=== PATIENT | female | born 1980 | race Caucasian/White ===

== ENCOUNTER 2020-07-15 11:25 | Outpatient (REF) | payer OTHER, SELFPAY ==
[2020-07-15 11:52] LABS: COVID-19 Test Negative (Negative); IDNOW Serial# 55D5AD1C
== END 2020-07-15 11:26 | disposition home or self-care (01) ==
LOC: HO.EMPCOV 11:25
PROVIDERS: Visit Provider Internal Medicine
DX: Z20.828 Contact with and (suspected) exposure to other viral communicable diseases (principal)
CPT/HCPCS: 87635; C9803

== ENCOUNTER 2020-08-17 15:33 | Outpatient (REF) | payer OTHER, SELFPAY ==
--- NOTE | 2020-08-17 | MM_ITS ---
EXAMINATION: MM SCREENING DIGITAL BREAST TOMOSYNTHESIS, BILATERAL CLINICAL INFORMATION: Screening. Asymptomatic. The lifetime risk of breast cancer based on the Tyrer-Cuzick Model is 49.5%. annual screening with breast MRI may be of benefit in women with a score of 20% or greater. COMPARISON: Mammography: MRI of March 10, 2020 and mammography of August 12, 2019 and dating back to June 26, 2014 TECHNIQUE: Digital breast tomosynthesis is performed in both the craniocaudal and mediolateral oblique views along with computer-aided detection (CAD). Synthesized 2D images are generated from the tomosynthesis. Additional right breast craniocaudal spot compression view was performed. FINDINGS: The breasts are heterogeneously dense, which may obscure small masses (ACR BI-RADS breast composition Category c). There is question of ill-defined density central aspect of the right breast on craniocaudal view for which spot compression view was performed which demonstrated this to represent superimposition of fibroglandular tissue. No new abnormal dominant mass or suspicious grouping of microcalcifications is seen within either breast. MM/MM tomosynthesis screening BI IMPRESSION: There are no significant changes from prior study. ASSESSMENT: BI-RADS 1: Negative RECOMMENDATION: Routine annual mammography screening. This patient's information was entered into a reminder system with a target due date for their next mammogram.
== END 2020-08-17 15:34 | disposition home or self-care (01) ==
LOC: HO.MAMMO 15:33
PROVIDERS: PCP Nurse Practitioner Family; Visit Provider Nurse Practitioner
DX: Z12.31 Encounter for screening mammogram for malignant neoplasm of breast (principal)
CPT/HCPCS: 77063; 77067

== ENCOUNTER → 2020-09-24 15:33 | Outpatient (BNV) | payer OTHER, SELFPAY | PROVIDERS: PCP Nurse Practitioner Family; Visit Provider Internal Medicine Medical Oncology | DX: D47.2 Monoclonal gammopathy (principal) | CPT/HCPCS: 99213 ==

== ENCOUNTER 2021-02-18 15:48 | Outpatient (REF) | payer OTHER, SELFPAY ==
--- NOTE | ~2021-02-18 | MR_ITS ---
EXAMINATION: MR BREAST WITHOUT AND WITH CONTRAST, BILATERAL CLINICAL INFORMATION: Bilateral mastodynia, left more than right, for 3 months. High-risk patient, genetic predisposition. COMPARISON: 03/10/2020. 05/29/2018 Mammography from 08/17/2020. TECHNIQUE: Imaging was performed with a dedicated breast coil. Prior to the administration of contrast, bilateral axial T1 and bilateral axial T2 weighted sequences were obtained. After the uneventful administration of?7.5 mL of Gadavist, dynamic contrast-enhanced VIBRANT series through the breasts in the axial plane were performed. Subtracted images were performed and reviewed. A delayed sagittal sequence through both breasts was acquired. Additionally, CAD post-processing, including maximum intensity projections, 3-D reconstructions and kinetic analysis, were performed an independent workstation and reviewed by the interpreting radiologist is a portion of this exam. FINDINGS: The breasts are comprised of scattered fibroglandular elements. The tissue undergoes moderate background enhancement. LEFT BREAST: There is a focal nonmass enhancement at 9:00 (image 84/128) 6.5 cm from the nipple. Nonmass enhancement is T2 isointense with type II plateau enhancement kinetics. Increasing conspicuity compared with prior. No mammographic correlate. MR biopsy advised. Clip susceptibility artifact at 4:00 without associated enhancement. No etiology for Sharp left breast pain identified. Stable lateral angulation of the left nipple without underlying lesion. RIGHT BREAST: An oval 6 mm T2 bright enhancing mass at 3:00 (image 83/128) 4.5 cm from the nipple. Linear nonenhancing septation, possibly a fibroadenoma. Type II plateau enhancement kinetics. Mass is slightly larger than on 2020 exam, but smaller than 2018, suggesting technical variations. Overall stable benign appearance. Clip susceptibility artifact at 10:00 without associated enhancement. No etiology for right breast pain. There is no suspicious internal mammary chain or axillary adenopathy. Limited views of the chest and abdomen are unremarkable. MR/MR breast BI wo/w con IMPRESSION: 1. Suspicious nonmass enhancement left breast 9:00 position with type II plateau enhancement kinetics. 2. Stable right breast mass 3:00. 3. No etiology for bilateral mastodynia. ASSESSMENT: LEFT BREAST: BI-RADS Category 4, suspicious finding RIGHT BREAST: BI-RADS Category 2, benign finding. RECOMMENDATIONS: 1. MR guided core biopsy nonmass enhancement left breast 9:00 position. 2. Continued yearly bilateral breast MRI. 3. Clinical follow-up of mastodynia.
== END 2021-02-18 15:49 | disposition home or self-care (01) ==
LOC: HO.MRI 15:48
PROVIDERS: PCP Nurse Practitioner Family; Visit Provider Nurse Practitioner
DX: Z15.89 Genetic susceptibility to other disease (principal); Z80.3 Family history of malignant neoplasm of breast
CPT/HCPCS: 77049; A9585

== ENCOUNTER 2021-03-03 07:39 | Outpatient (REF) | payer OTHER, SELFPAY ==
--- NOTE | ~2021-03-03 | MR_ITS ---
EXAMINATION: MR GUIDED VACUUM-ASSISTED CORE BIOPSY BREAST, LEFT MM DIGITAL MAMMOGRAPHY POST BIOPSY, LEFT CLINICAL INFORMATION: Small focal non mass enhancement 9:00 left breast mid depth on high risk screening MRI. History ELAINA genetic mutation. No mammographic correlate. MR tissue sampling recommended. Prior history benign left breast MR biopsy outer quadrant 06/13/2018 (benign breast tissue with focal like hyperplasia, stromal fibrosis, and columnar cell change. Mature adipose tissue and blood clot). Prior history benign contralateral right breast stereotactic biopsy 09/06/2013 (fibrocystic changes including apocrine metaplasia, fibrosis, microcysts, with moderate ductal hyperplasia, columnar cell hyperplasia, and focal collagenous spherulosis. No atypia or malignancy). COMPARISON: MRI breasts 02/18/2021, 3-D digital breast tomosynthesis 08/17/2020. TECHNIQUE/PROCEDURE: Informed consent was obtained from the patient after discussion of the benefits, risks, and alternatives to biopsy today. Patient appeared to understand. Gave opportunity for questions. Patient signed consent form. Biopsy is performed under MRI guidance using breast surface coil. Imaging is performed without and with use of 8 mL Gadavist gadolinium contrast. [employer] introducer localization system is used with grid. LESION: Focal small non mass enhancement mid medial left breast. Enhancement is less prominent and subtle with breast in compression when compared to the recent MR high risk screening exam. LOCAL ANESTHESIA: 8 mL 1% lidocaine; 10 mL 2% lidocaine with epinephrine. NEEDLE: [employer] 9-gauge vacuum assisted core biopsy device. APPROACH: Mediolateral. CORES: 12. CLIP: [employer] barbell/spool shape marker. POSTPROCEDURE UNILATERAL DIGITAL MAMMOGRAM: Mammography is performed using digital mammography in CC and LM views. There are scattered areas of fibroglandular density (ACR BI-RADS breast composition Category b). The barbell/spool shaped clip marker is in expected position, mid medial breast. No gross hematoma. There is an old cylinder shaped biopsy clip marker posterior 4:00 left breast from MR biopsy 2018. The patient tolerated the procedure well. No immediate complications. Home instructions reviewed with the patient. Final pathology results are pending. MR/MR guided breast biopsy LT IMPRESSION: 1. Status post MRI guided vacuum-assisted core biopsy left breast with clip placement. 2. Final pathology results pending. An addendum report will be issued.
[2021-03-03] MEDS: Lidocaine HCl 1 % MPF 5 ML VIAL SUBCUT ×2 (10:36→10:38)
== END 2021-03-03 07:40 | disposition home or self-care (01) ==
LOC: HO.MRI 07:39
PROVIDERS: PCP Nurse Practitioner Family; Visit Provider Nurse Practitioner
DX: N63.25 Unspecified lump in the left breast, overlapping quadrants (principal)
CPT/HCPCS: 19085; 77065; 88305; A4648; A9585

== ENCOUNTER 2021-08-18 15:29 | Outpatient (REF) | payer OTHER, SELFPAY ==
--- NOTE | ~2021-08-18 | MM_ITS ---
EXAMINATION: MM SCREENING DIGITAL BREAST TOMOSYNTHESIS, BILATERAL CLINICAL INFORMATION: Screening. Asymptomatic. The lifetime risk of breast cancer based on the Tyrer-Cuzick Model is 23.8%. Additional annual screening with breast MRI may be of benefit in women with a score of 20% or greater. COMPARISON: Mammography: 03/03/2021 and studies dating back to 06/15/2014 TECHNIQUE: Digital breast tomosynthesis is performed in both the craniocaudal and mediolateral oblique views along with computer-aided detection (CAD). Synthesized 2-D images are generated from the tomosynthesis. FINDINGS: There are scattered areas of fibroglandular density (ACR BI-RADS breast composition Category b). There is a stable parenchymal pattern of the right breast. There is question of irregular marginated density about the lateral aspect of the left breast measuring approximately 1.6 x 0.7 cm in size and lying approximately 6.5 cm from the nipple. On mediolateral oblique study, there is question of a similar density inferiorly, however, this lies only 5 cm from the nipple and may not correspond to the same lesion. Spot compression views and craniocaudal and mediolateral oblique projection recommended as well as rolled craniocaudal views of the left breast. MM/MM tomosynthesis screening BI IMPRESSION: Left breast density for further evaluation, as described. ASSESSMENT: BI-RADS 0: Incomplete - Need Additional Imaging Evaluation. RECOMMENDATION: 1. Additional views of the left breast. 2. Targeted ultrasound if warranted after review of the additional views. 3. Radiology department staff will contact the patient for additional imaging.
== END 2021-08-18 15:30 | disposition home or self-care (01) ==
LOC: HO.MAMMO 15:29
PROVIDERS: PCP Nurse Practitioner Family; Visit Provider Nurse Practitioner
DX: Z12.31 Encounter for screening mammogram for malignant neoplasm of breast (principal)
CPT/HCPCS: 77063; 77067

== ENCOUNTER 2021-08-26 08:25 | Outpatient (REF) | payer OTHER, SELFPAY ==
--- NOTE | ~2021-08-26 | MM_ITS ---
EXAMINATION: MM DIAGNOSTIC DIGITAL BREAST TOMOSYNTHESIS, LEFT LEFT BREAST ULTRASOUND CLINICAL INFORMATION: Callback for left breast density. COMPARISON: Mammography: 08/18/2021 and studies dating back to 06/26/2014 including MRI. TECHNIQUE: Digital breast tomosynthesis is performed. 2D images are generated from the tomosynthesis. The following views are obtained: Spot compression mediolateral oblique and craniocaudal views as well as full-field rolled craniocaudal views of the left breast. Targeted left breast ultrasound. FINDINGS: There are scattered areas of fibroglandular density (ACR BI-RADS breast composition Category b). The questioned densities within the left breast were compressed and are seen to demonstrate superimposition of fibroglandular tissue without residual abnormality. On the spot compression view there is a region of architectural distortion which was adjacent to biopsy clip however on craniocaudal views it is seen to lie approximately 2 cm from the clip. This likely represents a biopsy site with scarring as there are some interspersed regions of fat density within it. This is the first postbiopsy study from biopsies performed in February 2021. Ultrasound evaluation of the left breast did not demonstrate any abnormal cystic or solid mass. No region of abnormal distal sound shadowing was appreciated in the region of density. Results are discussed with the patient at time of visit. MM/MM tomosynthesis added views L IMPRESSION: Region of architectural distortion about the medial aspect of the left breast which appears to be related to previous biopsy. Patient is scheduled for six-month follow-up MRI study. ASSESSMENT: BI-RADS 3: Probably Benign. RECOMMENDATION: Six-month follow-up breast MRI. Mammography in 12 months. This patient's information was entered into a reminder system with a target due date for their next mammogram.
--- NOTE | ~2021-08-26 | US_ITS ---
EXAMINATION: US DIAGNOSTIC ULTRASOUND BREAST, LEFT CLINICAL INFORMATION: Question region of architectural distortion medial central left breast. COMPARISON: Mammography of same day as well as studies dating back to 06/15/2014. TECHNIQUE: Ultrasound of the breast is performed with real-time english scale imaging and color Doppler. The study was performed by technologist as well as myself for evaluation of upper outer aspect of the left breast as well as central medial aspect. FINDINGS: There is no focal suspicious finding. There is no solid mass, architectural abnormality, duct ectasia, or edema in the soft tissue planes. Results are discussed with the patient at time of visit. US/US breast LT limited IMPRESSION: No suspicious ultrasound findings identified of the left breast. Probable postoperative findings on mammography. ASSESSMENT: BI-RADS 3: Probably Benign. RECOMMENDATION: Patient is scheduled for six-month MRI. Mammography in 12 months. This patient's information was entered into a reminder system with a target due date for their next mammogram.
== END 2021-08-26 08:26 | disposition home or self-care (01) ==
LOC: HO.MAMMO 08:25
PROVIDERS: PCP Nurse Practitioner Family; Visit Provider Nurse Practitioner
DX: R92.8 Other abnormal and inconclusive findings on diagnostic imaging of breast (principal)
CPT/HCPCS: 76642; 77061; 77065

== ENCOUNTER 2021-09-28 07:17 | Outpatient (REF) | payer OTHER, SELFPAY ==
[2021-09-28 07:36] LABS: MANUAL DIFF FLAG NO
[2021-09-28 08:03] LABS: Basophils Percent Auto 0.4 % (0-2); Eosinophils Absolute Auto 0.2 X10*3/uL (0.0-0.4); Eosinophils Percent Auto 2.4 % (0-4); Hematocrit 40.7 % (37.0-47.0); Hemoglobin 13.2 g/dl (12.0-16.0); Imm Gran Abs Auto 0.02 X10*3/uL (0.00-0.03); Imm Gran Pct Auto 0.3 % (0.0-0.4); Lymphocytes Absolute Auto 2.4 X10*3/uL (1.2-4.9); Lymphocytes Percent Auto 32.6 % (20-40); Mean Corpuscular HGB Conc 32.4 g/dl (31.0-35.0); Mean Corpuscular Hemoglobin 27.9 pg (27.0-33.0); Mean Platelet Volume 9.1 fL (9.4-12.3); Monocytes Absolute Auto 0.8 X10*3/uL (0.1-1.2); Monocytes Percent Auto 10.3 % (2-11); Platelet Count 328 X10*3/uL (160-400); Red Blood Count 4.73 X10*6/uL (4.20-5.50); Red Cell Distribution Width 12.6 % (11.0-16.0); White Blood Count 7.4 X10*3/uL (4.8-10.8)
[2021-09-28 08:21] LABS: Alanine Aminotransferase 16 U/L (0-31); Albumin Level 4.5 g/dL (3.5-5.0); Alkaline Phosphatase 82 U/L (39-117); Anion Gap 14 (12-20); Aspartate Amino Transferase 17 U/L (5-31); Bilirubin Total 0.5 mg/dL (0.0-1.0); Blood Urea Nitrogen 12 mg/dL (9-16); Calcium 9.9 mg/dL (8.4-10.2); Carbon Dioxide 25 mmol/L (22-29); Chloride 103 mmol/L (96-108); Cholesterol 215 mg/dL; Estimated Glomerular Filt Rate > 60; Glucose Fasting 93 mg/dL (60-99); HDL Cholesterol 58 mg/dL; LDL Cholesterol Calculated 139 mg/dl; Lipase 25 U/L (8-78); Potassium 4.5 mmol/L (3.3-5.1); Sodium 137 mmol/L (135-145); Total Protein 8.1 g/dL (6.5-8.0); Triglycerides 90 mg/dL
[2021-09-28 08:45] LABS: TSH reflex Free T4 1.77 uIU/mL (0.32-4.0)
[2021-09-28 10:49] LABS: Appearance Urine CLEAR; Color Urine YELLOW; Glucose Urine UA NEG (NEG); Leukocyte Esterase Urine NEG (NEG); Nitrite Urine NEG (NEG); Urine Blood NEG (NEG); Urine Ketones NEG (NEG); Urine Protein NEG (NEG-TRACE)
== END 2021-09-28 07:18 | disposition home or self-care (01) ==
LOC: HO.LAB 07:17
PROVIDERS: PCP Nurse Practitioner Family; Visit Provider Nurse Practitioner Family
DX: K21.9 Gastro-esophageal reflux disease without esophagitis (principal)
CPT/HCPCS: 36415; 80053; 80061; 81003; 83690; 84443; 85025

== ENCOUNTER 2021-11-24 | Outpatient (REF) | payer OTHER, SELFPAY | END 2021-11-24 00:01 | disposition home or self-care (01) | LOC: HO.LNP | PROVIDERS: Visit Provider Nurse Practitioner | DX: K21.9 Gastro-esophageal reflux disease without esophagitis (principal); K59.04 Chronic idiopathic constipation | CPT/HCPCS: 87338 ==

== ENCOUNTER → 2021-11-24 07:11 | Outpatient (BNVA) | payer OTHER, SELFPAY | PROVIDERS: PCP Nurse Practitioner Family; Referring Provider Nurse Practitioner Family; Visit Provider Nurse Practitioner | DX: K21.9 Gastro-esophageal reflux disease without esophagitis (principal) ==

== ENCOUNTER 2021-12-06 08:10 | Outpatient (REF) | payer OTHER, SELFPAY ==
--- NOTE | ~2021-12-06 | FL_ITS ---
EXAMINATION: FL BARIUM SWALLOW CLINICAL INFORMATION: Gastroesophageal reflux COMPARISON: None TECHNIQUE: Barium swallow examination is performed using fluoroscopic evaluation in addition to multiple fluoroscopic spot views. The patient is imaged both upright and prone and using both thick and thin sulfate along with effervescent granules. Barium tablet was also administered. Fluoroscopy time: 0.8 minutes DAP: 2.4 Gycm2 Images: 40 FINDINGS: The swallowing mechanism is normal. No aspiration or penetration is seen. There is mucosal irregularity of the mid and distal thoracic esophagus suggestive of mild esophagitis. There was temporary stasis of the barium tablet at the GE junction. There is significant gastroesophageal reflux. No mass or stricture is seen. There is a very small sliding-type hiatal hernia. Stomach and duodenum are unremarkable. FL/FL barium swallow IMPRESSION: Gastroesophageal reflux and esophagitis of the mid and distal thoracic esophagus. Very small sliding-type hiatal hernia.
== END 2021-12-06 08:11 | disposition home or self-care (01) ==
LOC: HO.XRAY 08:10
PROVIDERS: Visit Provider Nurse Practitioner
DX: K59.04 Chronic idiopathic constipation (principal); K21.9 Gastro-esophageal reflux disease without esophagitis
CPT/HCPCS: 74220

== ENCOUNTER 2021-12-13 09:47 | Outpatient (REF) | payer OTHER, SELFPAY ==
--- NOTE | ~2021-12-13 | US_ITS ---
EXAMINATION: US ABDOMEN COMPLETE CLINICAL INFORMATION: Gastroesophageal reflux disease without esophagitis. Abdominal pain. COMPARISON: CT abdomen and pelvis 12/06/2017. Ultrasound abdomen 08/25/2010 and 05/15/2006. TECHNIQUE: Real-time imaging of the abdominal viscera. FINDINGS: PANCREAS: Normal. ABDOMINAL AORTA: The proximal, mid, and distal segments are normal in caliber. INFERIOR VENA CAVA: Visualized portions are normal. LIVER: Very mild increased echogenicity. No discrete focal abnormalities. No intrahepatic biliary ductal dilatation. GALLBLADDER: Normal. The gallbladder is physiologically distended without evidence of stones, sludge, polyps, wall thickening or pericholecystic fluid. COMMON BILE DUCT: Normal in caliber measuring 0.2 cm in diameter. RIGHT KIDNEY: Normal. No hydronephrosis. No renal calculi or focal parenchymal lesions. The kidney measures 11.7 cm in maximum dimension. LEFT KIDNEY: Normal. No hydronephrosis. No renal calculi or focal parenchymal lesions. The kidney measures 12.2 cm in maximum dimension. SPLEEN: Normal. The spleen measures 8.1 cm in maximum dimension. FREE FLUID: None. US/US abdomen complete IMPRESSION: Questionable increased echogenicity of the liver suggesting mild hepatic steatosis. Otherwise, normal examination.
== END 2021-12-13 09:48 | disposition home or self-care (01) ==
LOC: HO.HMGCX 09:47
PROVIDERS: Visit Provider Nurse Practitioner
DX: K21.9 Gastro-esophageal reflux disease without esophagitis (principal); K59.04 Chronic idiopathic constipation
CPT/HCPCS: 76700

== ENCOUNTER → 2021-12-15 07:10 | Outpatient (BNVA) | payer OTHER, SELFPAY | PROVIDERS: PCP Nurse Practitioner Family; Referring Provider Nurse Practitioner Family; Visit Provider Nurse Practitioner | DX: Z13.89 Encounter for screening for other disorder (principal) ==

== ENCOUNTER 2022-02-28 14:59 | Outpatient (REF) | payer OTHER, SELFPAY ==
--- NOTE | ~2022-02-28 | MR_ITS ---
EXAMINATION: MR BREAST WITHOUT AND WITH CONTRAST, BILATERAL CLINICAL INFORMATION: High-risk screening. COMPARISON: 02/18/2021. 03/10/2020. Mammography from 08/18/2021, and subsequent diagnostic imaging. TECHNIQUE: Imaging was performed with a dedicated breast coil. Prior to the administration of contrast, bilateral axial T1 and bilateral axial T2 weighted sequences were obtained. After the uneventful administration of?7 mL of Gadavist, dynamic contrast-enhanced VIBRANT series through the breasts in the axial plane were performed. Subtracted images were performed and reviewed. A delayed sagittal sequence through both breasts was acquired. Additionally, CAD post-processing, including maximum intensity projections, 3-D reconstructions and kinetic analysis, were performed an independent workstation and reviewed by the interpreting radiologist is a portion of this exam. FINDINGS: The breasts are comprised of scattered fibroglandular elements. The tissue undergoes moderate background enhancement. LEFT BREAST: Focal nonmass enhancement at 9:00 (series 100 image 74/114) has decreased in size and conspicuity following benign biopsy. Stable shaped biopsy clip shows 2 cm medial migration. Recommend continued yearly MR follow-up. No new suspicious left breast mass or dominant nonmass enhancement. RIGHT BREAST: An oval, 6 mm, T2 bright enhancing mass at 3:00 (image 75/114) remains stable. Recommend continued yearly MR follow-up. No new right breast mass or dominant nonmass enhancement. There is no suspicious internal mammary chain or axillary adenopathy. Limited views of the chest and abdomen are unremarkable. MR/MR breast BI wo/w con IMPRESSION: 1. Status post benign left breast biopsy at 9:00. 2. Stable right breast mass 3:00. 3. No screening MR evidence of breast malignancy. ASSESSMENT: LEFT BREAST: BI-RADS 2, benign findings. RIGHT BREAST: BI-RADS 2, benign findings. RECOMMENDATIONS: Repeat bilateral breast MRI in 12 months time.
== END 2022-02-28 15:00 | disposition home or self-care (01) ==
LOC: HO.MRI 14:59
PROVIDERS: Visit Provider Nurse Practitioner
DX: Z12.39 Encounter for other screening for malignant neoplasm of breast (principal); Z91.89 Other specified personal risk factors, not elsewhere classified
CPT/HCPCS: 77049; A9585

== ENCOUNTER 2022-06-21 08:59 | Outpatient (REF) | payer OTHER, SELFPAY ==
--- NOTE | ~2022-06-21 | CT_ITS ---
EXAMINATION: CT ABDOMEN AND PELVIS WITH CONTRAST CLINICAL INFORMATION: Abdominal distention/gaseous. COMPARISON: CT abdomen/pelvis 12/09/2017. TECHNIQUE: Multidetector volumetric images were obtained from the superior aspect of the liver through the pubic symphysis following administration 85 mL of Omnipaque 350 intravenous contrast. Sagittal and coronal reformatted images were obtained on the technologist's workstation. Oral contrast: No. This CT examination was performed using dose optimization techniques as appropriate, variously including the following: *Automated exposure control *Adjustment of mA and/or kV according to patient size (this includes techniques or standardized protocols for targeted exams where dose is matched to indication/reason for exam; i.e. extremities or head) *Use of iterative reconstruction technique DLP: 386 mGy-cm FINDINGS: LUNG BASES: The visualized lung bases are unremarkable. LIVER, GALLBLADDER, AND BILIARY TREE: The liver is normal in size, shape, and attenuation. No focal hepatic lesion or biliary ductal dilatation is present. The gallbladder is unremarkable with no evidence of radiopaque gallstones, gallbladder wall thickening, or obvious pericholecystic inflammatory changes. PANCREAS: The pancreatic tail is prominent but similar to previous study 12/06/2017. The rest of the pancreas is homogeneous in density. There is no peripancreatic fat stranding. No focal lesion. SPLEEN: Unremarkable. ADRENAL GLANDS: Unremarkable. KIDNEYS AND URETERS: The kidneys are normal in size, shape, and attenuation. No hydronephrosis, hydroureter, or calculi seen. No perinephric stranding. BLADDER: The bladder is mildly distended but unremarkable. GASTROINTESTINAL TRACT: There is [id number] stool and oral contrast seen in the colon without significant distention. Oral contrast opacified small bowel loops are normal caliber. There is mild mural thickening of the stomach, unchanged to previous study. 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 The appendix is not visualized. No free air or inflammatory process seen in the abdomen. ABDOMINAL WALL: A small umbilical hernia containing fat is noted. LYMPH NODES: No abnormal size retroperitoneal or pelvic lymph nodes seen. VASCULAR: Unremarkable. PELVIC VISCERA: The uterus is midline with an IUD in correct position. No adnexal mass or free fluid seen. Previously seen right adnexal cyst has resolved. There is no free fluid in the cul-de-sac. OSSEOUS STRUCTURES: No aggressive lytic or sclerotic process seen. CT/CT abdomen pelvis w IV con IMPRESSION: 1. No acute intra-abdominal process seen. 2. Moderate constipation without obstruction. 3. 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 4. Mild mural wall thickening of the stomach is stable. 5. Small umbilical hernia, stable. Fleischner guidelines were followed.
[2022-06-21] MEDS: Barium Sulfate Oral (Vanilla) 450 ML ORAL.SUSP 900 ML PO (11:16)
[2022-06-21] MEDS: iohexoL 350 MG/ML 100 ML INFUS..BTL IV (11:17)
== END 2022-06-21 09:00 | disposition home or self-care (01) ==
LOC: HO.CT 08:59
PROVIDERS: PCP Nurse Practitioner Family; Visit Provider Nurse Practitioner
DX: R14.0 Abdominal distension (gaseous) (principal)
CPT/HCPCS: 74177; Q9967

== ENCOUNTER → 2022-07-19 13:02 | Outpatient (BNVA) | payer OTHER, SELFPAY | PROVIDERS: PCP Nurse Practitioner Family; Visit Provider Student in an Organized Health Care Education/Training Program | DX: Z13.89 Encounter for screening for other disorder (principal) ==

== ENCOUNTER 2022-07-21 08:26 | Outpatient (REF) | payer OTHER, SELFPAY ==
[2022-07-21 09:14] LABS: MANUAL DIFF FLAG NO
[2022-07-21 10:20] LABS: Basophils Absolute Auto 0.1 X10*3/uL (0.0-0.2); Basophils Percent Auto 0.5 % (0-2); Eosinophils Absolute Auto 0.1 X10*3/uL (0.0-0.4); Eosinophils Percent Auto 0.6 % (0-4); Hematocrit 35.2 % (37.0-47.0); Hemoglobin 11.3 g/dl (12.0-16.0); Imm Gran Abs Auto 0.03 X10*3/uL (0.00-0.03); Imm Gran Pct Auto 0.3 % (0.0-0.4); Lymphocytes Absolute Auto 2.2 X10*3/uL (1.2-4.9); Lymphocytes Percent Auto 23.9 % (20-40); Mean Corpuscular HGB Conc 32.1 g/dl (31.0-35.0); Mean Corpuscular Hemoglobin 25.7 pg (27.0-33.0); Mean Corpuscular Volume 80.2 fL (80.0-98.0); Monocytes Absolute Auto 0.8 X10*3/uL (0.1-1.2); Monocytes Percent Auto 8.5 % (2-11); Neutrophils Absolute Auto 6.1 x10*3/uL (2.0-8.3); Neutrophils Percent Auto 66.2 % (45-73); Platelet Count 435 X10*3/uL (160-400); Red Blood Count 4.39 X10*6/uL (4.20-5.50); Red Cell Distribution Width 13.3 % (11.0-16.0); White Blood Count 9.3 X10*3/uL (4.8-10.8)
[2022-07-21 11:04] LABS: Erythrocyte Sedimentation Rate 23 MM/HR (0-20)
[2022-07-21 11:10] LABS: HBS Num1 123.45 mIU/mL (0-7.99); HBc Num1 0.07 S/CO (0.00-0.79); HBsAGNum1 0.29 S/CO (0.00-0.99); Hepatitis A Antibody IgM 0.18 Index (0-0.79); Hepatitis B Core Antibody Nonreactive (Nonreactive); Hepatitis B Surface Antigen Negative (Negative); ~HepC Num1 0.08 S/CO (0.00-0.79); ~Hepatitis A Antibody IgM Nonreactive (Nonreactive); ~Hepatitis B Surface Antibody REACTIVE (Nonreactive); ~Hepatitis C Antibody Nonreactive (Nonreactive)
[2022-07-21 11:14] LABS: Alanine Aminotransferase 11 U/L (0-31); Albumin Level 4.4 g/dL (3.5-5.0); Alkaline Phosphatase 91 U/L (39-117); Anion Gap 15 (12-20); Aspartate Amino Transferase 14 U/L (5-31); Bilirubin Total 0.3 mg/dL (0.0-1.0); Blood Urea Nitrogen 15 mg/dL (9-16); C Reactive Protein 0.34 mg/dL (< or = 0.50); Calcium 9.6 mg/dL (8.4-10.2); Carbon Dioxide 24 mmol/L (22-29); Chloride 104 mmol/L (96-108); Estimated Glomerular Filt Rate > 60; Glucose Random 89 mg/dL (60-115); Potassium 4.9 mmol/L (3.3-5.1); Sodium 138 mmol/L (135-145); Total Protein 7.8 g/dL (6.5-8.0); Uric Acid 3.9 mg/dL (2.4-5.7)
[2022-07-24 09:09] LABS: TS Negative Control Passed; TS Panel A 0; TS Panel B 0; TS Positive Control Passed; TSpotTB Negative (Negative)
[2022-07-26 21:23] LABS: HLA B27 Negative (Negative)
== END 2022-07-21 08:27 | disposition home or self-care (01) ==
LOC: HO.LAB 08:26
PROVIDERS: PCP Nurse Practitioner Family; Visit Provider Student in an Organized Health Care Education/Training Program
DX: Z11.7 Encounter for testing for latent tuberculosis infection (principal); Z11.59 Encounter for screening for other viral diseases; L40.50 Arthropathic psoriasis, unspecified; M79.675 Pain in left toe(s); M54.50 Low back pain, unspecified
CPT/HCPCS: 36415; 80053; 84550; 85025; 85652; 86140; 86481; 86704; 86706; 86709; 86803; 86812; 87340

== ENCOUNTER 2022-08-21 07:36 | Outpatient (REF) | payer OTHER, SELFPAY ==
--- NOTE | ~2022-08-21 | MM_ITS ---
EXAMINATION: MM SCREENING DIGITAL BREAST TOMOSYNTHESIS, BILATERAL CLINICAL INFORMATION: Screening. Asymptomatic. Previous bilateral breast biopsies. The lifetime risk of breast cancer based on the Tyrer-Cuzick Model is 42.7%. Additional annual screening with breast MRI may be of benefit in women with a score of 20% or greater. COMPARISON: Mammography: MRI of 02/28/2022 and mammography dating back to 08/03/2016. TECHNIQUE: Digital breast tomosynthesis is performed in both the craniocaudal and mediolateral oblique views along with computer-aided detection (CAD). Synthesized 2D images are generated from the tomosynthesis. FINDINGS: The breasts are heterogeneously dense, which may obscure small masses (ACR BI-RADS breast composition Category c). There is a stable parenchymal pattern of the left breast. On craniocaudal view of the right breast just medial to midline within the central breast on craniocaudal view there is an asymmetric density approximately 5 cm from the nipple. Supplementary spot compression view and possible ultrasound is recommended. MM/MM tomosynthesis screening BI IMPRESSION: Right breast density on craniocaudal view for further evaluation. ASSESSMENT: BI-RADS 0: Incomplete - Need Additional Imaging Evaluation RECOMMENDATION: 1. Additional views of the right breast. 2. Targeted ultrasound if warranted after review of the additional views. 3. Radiology department staff will contact the patient for additional imaging.
== END 2022-08-21 07:37 | disposition home or self-care (01) ==
LOC: HO.MAMMO 07:36
PROVIDERS: PCP Nurse Practitioner Family; Visit Provider Nurse Practitioner
DX: Z12.31 Encounter for screening mammogram for malignant neoplasm of breast (principal)
CPT/HCPCS: 77063; 77067

== ENCOUNTER → 2022-08-25 15:35 | Outpatient (BNVA) | payer OTHER, SELFPAY | PROVIDERS: PCP Nurse Practitioner Family; Visit Provider Nurse Practitioner | DX: Z13.89 Encounter for screening for other disorder (principal) ==

== ENCOUNTER 2022-08-29 15:03 | Outpatient (REF) | payer OTHER, SELFPAY ==
--- NOTE | ~2022-08-29 | MM_ITS ---
EXAMINATION: MM DIAGNOSTIC DIGITAL BREAST TOMOSYNTHESIS, RIGHT CLINICAL INFORMATION: Recall from high risk screening for question of asymmetric density just medial to midline central right breast on CC view. Family history ELAINA genetic mutation. Prior history bilateral benign biopsies. COMPARISON: Mammography: 08/21/2022, 08/26/2021, 11/15/2021, 03/03/2021, 08/17/2020, 08/12/2019; bilateral breast MR 02/28/2022. TECHNIQUE: Digital breast tomosynthesis is performed. 2D images are generated from the tomosynthesis. The following views are obtained: Spot right CC. FINDINGS: There are scattered areas of fibroglandular density (ACR BI-RADS breast composition Category b). Additional views show no asymmetric density or interval developing density or architectural abnormality from prior studies. Results are discussed with the patient at time of visit. MM/MM tomosynthesis added views R IMPRESSION: -No mammographic evidence of malignancy. -No significant changes from prior exams. ASSESSMENT: BI-RADS 1: Negative RECOMMENDATION: -Routine annual mammography screening. -Additional adjunct annual breast MRI screening as clinical risk factors warrant. This patient's information was entered into a reminder system with a target due date for their next mammogram.
== END 2022-08-29 15:04 | disposition home or self-care (01) ==
LOC: HO.MAMMO 15:03
PROVIDERS: PCP Nurse Practitioner Family; Visit Provider Nurse Practitioner
DX: R92.8 Other abnormal and inconclusive findings on diagnostic imaging of breast (principal); Z80.3 Family history of malignant neoplasm of breast; Z15.89 Genetic susceptibility to other disease
CPT/HCPCS: 77061; 77065

== ENCOUNTER → 2022-09-12 11:31 | Outpatient (BNVA) | payer OTHER, SELFPAY | PROVIDERS: PCP Nurse Practitioner Family; Visit Provider Student in an Organized Health Care Education/Training Program | DX: Z13.89 Encounter for screening for other disorder (principal) ==

== ENCOUNTER → 2022-12-12 15:00 | Outpatient (BNVA) | payer OTHER, SELFPAY | PROVIDERS: PCP Nurse Practitioner Family; Visit Provider Student in an Organized Health Care Education/Training Program ==

== ENCOUNTER 2022-12-12 15:48 | Outpatient (REF) | payer OTHER, SELFPAY ==
[2022-12-12 16:01] LABS: MANUAL DIFF FLAG NO
[2022-12-12 17:36] LABS: Basophils Absolute Auto 0.1 X10*3/uL (0.0-0.2); Basophils Percent Auto 0.9 % (0-2); Eosinophils Absolute Auto 0.2 X10*3/uL (0.0-0.4); Eosinophils Percent Auto 2.6 % (0-4); Hematocrit 35.1 % (37.0-47.0); Imm Gran Abs Auto 0.01 X10*3/uL (0.00-0.03); Imm Gran Pct Auto 0.1 % (0.0-0.4); Lymphocytes Absolute Auto 2.4 X10*3/uL (1.2-4.9); Lymphocytes Percent Auto 29.2 % (20-40); Mean Corpuscular HGB Conc 31.3 g/dl (31.0-35.0); Mean Corpuscular Hemoglobin 25.3 pg (27.0-33.0); Mean Corpuscular Volume 80.7 fL (80.0-98.0); Mean Platelet Volume 9.5 fL (9.4-12.3); Monocytes Absolute Auto 0.7 X10*3/uL (0.1-1.2); Monocytes Percent Auto 8.7 % (2-11); Neutrophils Absolute Auto 4.8 x10*3/uL (2.0-8.3); Neutrophils Percent Auto 58.5 % (45-73); Platelet Count 441 X10*3/uL (160-400); Red Blood Count 4.35 X10*6/uL (4.20-5.50); Red Cell Distribution Width 14.4 % (11.0-16.0); White Blood Count 8.2 X10*3/uL (4.8-10.8)
[2022-12-12 18:30] LABS: Alanine Aminotransferase 15 U/L (0-31); Albumin Level 4.4 g/dL (3.5-5.0); Alkaline Phosphatase 85 U/L (39-117); Anion Gap 14 (12-20); Aspartate Amino Transferase 17 U/L (5-31); Bilirubin Total 0.3 mg/dL (0.0-1.0); Blood Urea Nitrogen 11 mg/dL (9-16); Calcium 9.5 mg/dL (8.4-10.2); Carbon Dioxide 27 mmol/L (22-29); Chloride 104 mmol/L (96-108); Estimated Glomerular Filt Rate > 60; Glucose Random 92 mg/dL (60-115); Potassium 4.7 mmol/L (3.3-5.1); Sodium 140 mmol/L (135-145); Total Protein 7.9 g/dL (6.5-8.0)
[2022-12-12 18:36] LABS: Erythrocyte Sedimentation Rate 17 MM/HR (0-20)
== END 2022-12-12 15:49 | disposition home or self-care (01) ==
LOC: HO.LAB 15:48
PROVIDERS: PCP Nurse Practitioner Family; Visit Provider Student in an Organized Health Care Education/Training Program
DX: L40.50 Arthropathic psoriasis, unspecified (principal)
CPT/HCPCS: 36415; 80053; 85025; 85652; 86140

== ENCOUNTER 2023-01-12 07:15 | Outpatient (REF) | payer OTHER, SELFPAY ==
[2023-01-12 08:27] LABS: MANUAL DIFF FLAG NO
[2023-01-12 09:23] LABS: Basophils Absolute Auto 0.1 X10*3/uL (0.0-0.2); Basophils Percent Auto 0.7 % (0-2); Eosinophils Absolute Auto 0.2 X10*3/uL (0.0-0.4); Eosinophils Percent Auto 2.3 % (0-4); Hemoglobin 11.2 g/dl (12.0-16.0); Imm Gran Abs Auto 0.01 X10*3/uL (0.00-0.03); Imm Gran Pct Auto 0.1 % (0.0-0.4); Lymphocytes Absolute Auto 2.6 X10*3/uL (1.2-4.9); Lymphocytes Percent Auto 36.7 % (20-40); Mean Corpuscular HGB Conc 31.1 g/dl (31.0-35.0); Mean Corpuscular Hemoglobin 24.7 pg (27.0-33.0); Mean Corpuscular Volume 79.5 fL (80.0-98.0); Mean Platelet Volume 8.9 fL (9.4-12.3); Monocytes Absolute Auto 0.7 X10*3/uL (0.1-1.2); Monocytes Percent Auto 9.5 % (2-11); Neutrophils Absolute Auto 3.6 x10*3/uL (2.0-8.3); Neutrophils Percent Auto 50.7 % (45-73); Platelet Count 421 X10*3/uL (160-400); Red Blood Count 4.53 X10*6/uL (4.20-5.50); Red Cell Distribution Width 14.7 % (11.0-16.0); White Blood Count 7.1 X10*3/uL (4.8-10.8)
[2023-01-12 09:26] LABS: Appearance Urine Clear; Color Urine Yellow; Glucose Urine UA Negative (Negative); Leukocyte Esterase Urine Small (1+) (Negative); Nitrite Urine Negative (Negative); PH 5.5 (5.0-9.0); Specific Gravity - Urine 1.015 (1.005-1.025); UMIC TRIGGER UACC YES; Urine Blood Large (3+) (Negative); Urine Ketones Negative (Negative); Urine Protein Negative (Neg-Trace)
[2023-01-12 09:41] LABS: Bacteria Urine None Seen (None Seen); Hyaline Casts Urine 0-2 /LPF (0-2); UACC Culture Trigger YES; WBC Urine 0-5 /HPF (0-5)
[2023-01-12 10:09] LABS: Alanine Aminotransferase 14 U/L (0-31); Albumin Level 4.1 g/dL (3.5-5.0); Alkaline Phosphatase 72 U/L (39-117); Anion Gap 14 (12-20); Aspartate Amino Transferase 16 U/L (5-31); Bilirubin Total 0.5 mg/dL (0.0-1.0); Blood Urea Nitrogen 10 mg/dL (9-16); Calcium 9.2 mg/dL (8.4-10.2); Carbon Dioxide 26 mmol/L (22-29); Chloride 104 mmol/L (96-108); Cholesterol 193 mg/dL; Estimated Glomerular Filt Rate > 60; Glucose Fasting 83 mg/dL (60-99); HDL Cholesterol 51 mg/dL; LDL Cholesterol Calculated 124 mg/dl; Potassium 4.6 mmol/L (3.3-5.1); Sodium 139 mmol/L (135-145); TSH reflex Free T4 2.19 uIU/mL (0.32-4.0); Total Protein 7.8 g/dL (6.5-8.0); Triglycerides 91 mg/dL; Vitamin D 25-OH Total 31.4 ng/mL (>30)
== END 2023-01-12 07:16 | disposition home or self-care (01) ==
LOC: HO.LAB 07:15
PROVIDERS: PCP Nurse Practitioner Family; Visit Provider Nurse Practitioner Family
DX: Z00.00 Encounter for general adult medical examination without abnormal findings (principal); E55.9 Vitamin D deficiency, unspecified; R82.90 Unspecified abnormal findings in urine; Z13.29 Encounter for screening for other suspected endocrine disorder
CPT/HCPCS: 36415; 80053; 80061; 81001; 82306; 84443; 85025; 87086

== ENCOUNTER 2023-02-05 15:22 | Outpatient (REF) | payer OTHER, SELFPAY ==
[2023-02-05 16:01] LABS: MANUAL DIFF FLAG NO
[2023-02-05 17:51] LABS: Basophils Absolute Auto 0.1 X10*3/uL (0.0-0.2); Basophils Percent Auto 0.6 % (0-2); Eosinophils Absolute Auto 0.2 X10*3/uL (0.0-0.4); Eosinophils Percent Auto 2.3 % (0-4); Hematocrit 35.3 % (37.0-47.0); Imm Gran Abs Auto 0.03 X10*3/uL (0.00-0.03); Imm Gran Pct Auto 0.3 % (0.0-0.4); Lymphocytes Absolute Auto 2.5 X10*3/uL (1.2-4.9); Lymphocytes Percent Auto 28.2 % (20-40); Mean Corpuscular HGB Conc 31.2 g/dl (31.0-35.0); Mean Corpuscular Hemoglobin 24.9 pg (27.0-33.0); Mean Corpuscular Volume 79.9 fL (80.0-98.0); Monocytes Absolute Auto 0.8 X10*3/uL (0.1-1.2); Neutrophils Absolute Auto 5.3 x10*3/uL (2.0-8.3); Neutrophils Percent Auto 59.6 % (45-73); Platelet Count 433 X10*3/uL (160-400); Red Blood Count 4.42 X10*6/uL (4.20-5.50); Red Cell Distribution Width 15.5 % (11.0-16.0)
[2023-02-05 18:28] LABS: Alanine Aminotransferase 22 U/L (0-31); Albumin Level 4.5 g/dL (3.5-5.0); Alkaline Phosphatase 86 U/L (39-117); Anion Gap 13 (12-20); Aspartate Amino Transferase 22 U/L (5-31); Bilirubin Total 0.4 mg/dL (0.0-1.0); Blood Urea Nitrogen 10 mg/dL (9-16); Calcium 9.6 mg/dL (8.4-10.2); Carbon Dioxide 27 mmol/L (22-29); Chloride 102 mmol/L (96-108); Estimated Glomerular Filt Rate > 60; Glucose Random 96 mg/dL (60-115); Potassium 4.1 mmol/L (3.3-5.1); Sodium 138 mmol/L (135-145); Total Protein 8.3 g/dL (6.5-8.0)
[2023-02-06 16:49] LABS: Iron 23 mcg/dL (30-160); Percent Iron Saturation 6 % (15-50); Total Iron Binding Capacity 385 mcg/dL (228-428); Unsaturated Iron Binding 362 ug/dL
[2023-02-06 17:07] LABS: Ferritin 8 ng/mL (10-250)
[2023-02-07 14:58] LABS: IgA 235 mg/dL (47-310); IgG 1680 mg/dL (600-1640); IgM 110 mg/dL (50-300)
== END 2023-02-05 15:23 | disposition home or self-care (01) ==
LOC: HO.LAB 15:22
PROVIDERS: PCP Nurse Practitioner Family; Visit Provider Internal Medicine Medical Oncology
DX: D47.2 Monoclonal gammopathy (principal); D64.9 Anemia, unspecified
CPT/HCPCS: 36415; 80053; 82728; 82784; 83540; 85025; 86334

== ENCOUNTER 2023-02-14 15:47 | Outpatient (REF) | payer OTHER, SELFPAY ==
[2023-02-14 16:08] LABS: MANUAL DIFF FLAG NO
[2023-02-14 16:52] LABS: Basophils Absolute Auto 0.1 X10*3/uL (0.0-0.2); Basophils Percent Auto 0.5 % (0-2); Eosinophils Absolute Auto 0.1 X10*3/uL (0.0-0.4); Eosinophils Percent Auto 0.9 % (0-4); Hematocrit 36.8 % (37.0-47.0); Hemoglobin 11.4 g/dl (12.0-16.0); Imm Gran Abs Auto 0.02 X10*3/uL (0.00-0.03); Imm Gran Pct Auto 0.2 % (0.0-0.4); Lymphocytes Absolute Auto 2.3 X10*3/uL (1.2-4.9); Lymphocytes Percent Auto 25.1 % (20-40); Mean Corpuscular Hemoglobin 25.4 pg (27.0-33.0); Mean Corpuscular Volume 82.1 fL (80.0-98.0); Monocytes Absolute Auto 0.6 X10*3/uL (0.1-1.2); Monocytes Percent Auto 6.9 % (2-11); Neutrophils Absolute Auto 6.1 x10*3/uL (2.0-8.3); Neutrophils Percent Auto 66.4 % (45-73); Platelet Count 439 X10*3/uL (160-400); Red Blood Count 4.48 X10*6/uL (4.20-5.50); Red Cell Distribution Width 15.4 % (11.0-16.0); White Blood Count 9.3 X10*3/uL (4.8-10.8)
[2023-02-14 17:42] LABS: Erythrocyte Sedimentation Rate 16 MM/HR (0-20)
[2023-02-14 17:48] LABS: Alanine Aminotransferase 28 U/L (0-31); Albumin Level 4.6 g/dL (3.5-5.0); Alkaline Phosphatase 95 U/L (39-117); Anion Gap 14 (12-20); Aspartate Amino Transferase 21 U/L (5-31); Bilirubin Total 0.3 mg/dL (0.0-1.0); Blood Urea Nitrogen 10 mg/dL (9-16); C Reactive Protein 0.37 mg/dL (< or = 0.50); Calcium 9.5 mg/dL (8.4-10.2); Carbon Dioxide 25 mmol/L (22-29); Chloride 104 mmol/L (96-108); Estimated Glomerular Filt Rate > 60; Glucose Random 90 mg/dL (60-115); Potassium 4.1 mmol/L (3.3-5.1); Sodium 139 mmol/L (135-145); Total Protein 8.6 g/dL (6.5-8.0)
== END 2023-02-14 15:48 | disposition home or self-care (01) ==
LOC: HO.LAB 15:47
PROVIDERS: PCP Nurse Practitioner Family; Visit Provider Student in an Organized Health Care Education/Training Program
DX: L40.50 Arthropathic psoriasis, unspecified (principal)
CPT/HCPCS: 36415; 80053; 85025; 85652; 86140

== ENCOUNTER 2023-02-27 15:48 | Outpatient (AMB) | payer OTHER, SELFPAY ==
--- NOTE | 2023-02-27 15:54 | A.OFFVIS_ITS ---
Intake Vital Signs 02/27/23 15:56 Height 5 ft 7 in Weight 165 lb 5.547 oz BMI 25.9 BP 143/78 H Blood Pressure Location Lt brachial Position Sitting Pulse 75 Intake Visit Reasons: Follow up IBS Intake Note: Saima presents in the office as a follow up IBS. CC: She states that she is having concerns - 2 weeks ago her reflux was back full force and she developed pain and pressure in her epigastric region. It was wrapping around to her back - She also had black diarrhea. It slowly worked its way back to normal stools but she does still have mild discomfort from the epigastric region that radiates to the right. Allergies Sulfa (Sulfonamide Antibiotics) [SULFA (SULFONAMIDE ANTIBIOTICS)] Allergy (Unknown, Verified 02/27/23 15:56) UNKNOWN, hives HPI Follow up IBS HPI Details Assessment & Plan (1) Chronic idiopathic constipation: ?Code(s): K59.04 - Chronic idiopathic constipation ?Plan: We review the CT and there are no alarming findings. She is doing well on her protonix qam and famotidine qhs. In the end, she has decided not to take the creon. Her bloating has improved with treating the CIC which is controlled on OTC senna. ROV 6 mos. (2) GERD (gastroesophageal reflux disease): ?Code(s): K21.9 - Gastro-esophageal reflux disease without esophagitis (3) Abdominal bloating: ?Code(s): R14.0 - Abdominal distension (gaseous) (4) MGUS (monoclonal gammopathy of unknown significance): ?Code(s): D47.2 - Monoclonal gammopathy ? ? ? Medications: Changed From famotidine 40 mg? PO BEDTIME 30 tabs 0RF K59.04 - Chronic i diopathic constipa tion, K21.9 - Jonny ro-esophageal refl ux disease without esophagitis ? To famotidine 40 mg PO BEDTIME 9 0 tabs 1RF 90 days K59.04 - Chronic i diopathic constipa tion, K21.9 - Jonny ro-esophageal refl ux disease without esophagitis ? Refilled pantoprazole (Prot diana) 40 mg PO DAILY 90 tabs 2RF 90 days K21.9 - Gastro-eso phageal reflux dis ease without esoph agitis, K59.04 - C hronic idiopathic constipation ? Discontinued hgdvgl-[id number]-ju ylase 6,000-19,000 -30,000 unit ?? d o not exceed 10,00 0 unit/kg lipase p er 24 hrs ?? Disco ntinued Reason:? D octor's Order 1 cap? PO QIDACHS 120 caps 6RF K58.9 - Irritable bowel syndrome wit hout diarrhea ? TODAY'S VISIT She was doing well until about 2 weeks ago, when her GERD became severe and she has pain that radiated under her ribs bilaterally. She then had some diarrhea which relieved the GERD. BUT she has remaining discomfort under her ribs around to her back. She started low dose methotrexate and folic acid. BUT she has been on this since December. She had pain that radiated up the the right shoulder at the time, Now most discomfort in the right abd upper mid. She stopped the senna and fiber. She continues on her pantoprazole and famotidine. We will get US and EGD (she had ? mural thickening on 2021 CT). There are no prior problems with anesthesia or sedation. She denies any cardiac or respiratory problems. There are no infectious disease problems. ROV 4 weeks. FOR[facility]LY [facility], [facility] Medical History Monoclonal gammopathies Pseudotumor cerebri Surgical History Hx of dilation and curettage [place] teeth removed Family History Mother Metabolic disease Diabetes Breast cancer Hypertension High cholesterol Psoriasis Father Hypertension High cholesterol Maternal Grandmother Pancreatic cancer Maternal Grandfather Heart disease Paternal Grandfather Alzheimer disease Paternal Grandfather Dementia Social History Household Members: Spouse and Children Housing: House Are you a primary primary care physician to a significant other at home: No Do you presently have visiting nurse or other home services: No Alcohol intake: current Alcohol intake frequency: a few times a week Alcohol type: wine Patient Tobacco Use Status: Never used Tobacco e-Cigarette/Vaping Use: Never Used service: No Current occupational status: employed Cognitive needs: No Hearing needs: No Vision needs: No Review of Systems Const Denies fatigue, Denies fever(s), Denies night sweats, Denies poor appetite and Denies weight loss ENT Reports Normal hearing present, Denies dental pain, Denies dysphagia, Denies hearing loss, Denies mouth pain, Denies odynophagia, Denies throat swelling, Denies tongue swelling and Reports other (Dentition adequate) Card Reports no additional complaints Resp Reports no additional complaints GI Denies abdominal pain, Denies melena, Reports bloating, Denies hematochezia, Reports constipation, Denies GI cramping, Denies dysphagia, Denies excessive flatus, Denies early satiety, Reports heartburn, Reports diarrhea, Denies nause a, Denies odynophagia, Denies vomiting and Denies hematemesis Skin/Breast Denies pruritus, Denies lesions, Denies rash and Denies jaundice Neuro Reports Normal hearing present and Denies Abnormal speech present Endo Denies fatigue Aller/Immun Denies throat swelling and Denies tongue swelling Physical Exam Vital Signs: Last Vital Signs Pulse 75 02/27/23 15:56 BP 143/78 H 02/27/23 15:56 BMI result Body Mass Index 25.9 Const General: cooperative, no acute distress, well developed and well groomed Nutritional Appearance: average body habitus and well nourished Orientation/consciousness: oriented to person, oriented to place and oriented to time Limitations: No language barrier HEENT Head: Yes normocephalic and Yes atraumatic Eyes General: appearance normal, both eyes and all related structures Pupils: Equal, round and reactive pupils present Neck Neck: Yes normal visual inspection and Yes no lymphadenopathy Thyroid: Thyroid normal Resp Effort & Inspection: normal respiratory effort and able to speak in complete sentences Auscultation: clear to auscultation bilaterally Cardio Rate: regular rate Rhythm: regular rhythm Heart sounds: Normal, physiologic split S2 sound present Peripheral pulses: radial pulses present and posterior tibial pulses present GI Inspection: No distended and No Abdominal panniculus present Palpation (GI): Soft to palpation, nontender, no guarding, not rigid and No hepatosplenomegaly present Percussion: Yes normal to percussion Auscultation: normal bowel sounds Rectal Exam - Female: deferred Skin General skin exam: no rashes or lesions noted, turgor normal, skin not dry, no jaundice, No spider nevi and no striae Rashes: no rashes Nails: normal Neuro General: oriented to person, oriented to place and oriented to time Cranial nerves: Yes Equal, round and reactive pupils present and Yes Normal hearing present Speech: No Abnormal speech present Extrem General: Yes normal to inspection, No clubbing, No cyanosis and No edema Psych Appearance: grossly normal and well kempt Mental Status: mental status grossly normal Speech and movement: Normal speech and movement present Affect: normal affect Attitude: cooperative Thought process: Normal thought process present and not confabulating Thought content: Normal thought content present Insight: Limited insight present (Psych) Judgement: Limited judgement present (Psych) Results Reviewed Results Reviewed: Laboratory Tests 01/12/23 02/14/23 02/14/23 08:26 16:07 16:07 WBC 9.3 Hgb 11.4 L Hct 36.8 L MCV 82.1 Plt Count 439 H Estimated GFR > 60 Total Bilirubin 0.3 AST 21 ALT 28 Alkaline Phosphatase 95 TSH 2.19 Assessment & Plan Assessment & Plan (1) Chronic idiopathic constipation: Code(s): K59.04 - Chronic idiopathic constipation Plan: She was doing well until about 2 weeks ago, when her GERD became severe and she has pain that radiated under her ribs bilaterally. She then had some diarrhea which relieved the GERD. BUT she has remaining discomfort under her ribs around to her back. She started low dose methotrexate and folic acid. BUT she has been on this since December. She had pain that radiated up the the right shoulder at the time, Now most discomfort in the right abd upper mid. She stopped the senna and fiber. She continues on her pantoprazole and famotidine. We will get US and EGD (she had ? mural thickening on 2021 CT). There are no prior problems with anesthesia or sedation. She denies any cardiac or respiratory problems. There are no infectious disease problems. ROV 4 weeks. (2) GERD (gastroesophageal reflux disease): Code(s): K21.9 - Gastro-esophageal reflux disease without esophagitis (3) Abdominal bloating: Code(s): R14.0 - Abdominal distension (gaseous) (4) Acute diarrhea: Code(s): R19.7 - Diarrhea, unspecified (5) Abnormal finding on CT scan: Comment: ? mural thickening Code(s): R93.89 - Abnormal findings on diagnostic imaging of other specified body structures (6) Pre-op examination: Code(s): Z01.818 - Encounter for other preprocedural examination Orders: Orders EGD with [facility] - GI Use Only 02/27/23 R19.7 - Diarrhea, unspecified, R93.89 - Abnormal findings on diagnostic imaging of other specified body structures US abdomen complete 02/27/23 R19.7 - Diarrhea, unspecified, R93.89 - Abnormal findings on diagnostic imaging of other specified body structures Coding Level of Care Code Est Pt Level 4 (58981) Diagnoses Chronic idiopathic constipation K59.04 GERD (gastroesophageal reflux disease) K21.9 Abdominal bloating R14.0 Acute diarrhea R19.[address] scan R93.89 Pre-op examination Z01.818
[2023-02-27 15:56] VITALS: BP 143/78; PULSE 75; BMI 25.9
== END 2023-02-27 16:48 | disposition home or self-care (01) ==
PROVIDERS: PCP Nurse Practitioner Family; Visit Provider Nurse Practitioner
DX: K59.04 Chronic idiopathic constipation (principal); K21.9 Gastro-esophageal reflux disease without esophagitis; R14.0 Abdominal distension (gaseous); R19.7 Diarrhea, unspecified; R93.89 Abnormal findings on diagnostic imaging of other specified body structures; Z01.818 Encounter for other preprocedural examination
CPT/HCPCS: 99214

== ENCOUNTER → 2023-02-27 15:48 | Outpatient (BNVA) | payer OTHER, SELFPAY | PROVIDERS: PCP Nurse Practitioner Family; Visit Provider Nurse Practitioner ==

== ENCOUNTER 2023-03-26 08:47 | Outpatient (REF) | payer OTHER, SELFPAY ==
--- NOTE | ~2023-03-26 | US_ITS ---
EXAMINATION: US ABDOMEN COMPLETE CLINICAL INFORMATION: Diarrhea, unspecified. COMPARISON: CT abdomen and pelvis with contrast 06/21/2022. Ultrasound abdomen complete 12/13/2021. TECHNIQUE: Real-time imaging of the abdominal viscera. FINDINGS: PANCREAS: Normal. ABDOMINAL AORTA: The proximal, mid, and distal segments are normal in caliber. INFERIOR VENA CAVA: Visualized portions are normal. LIVER: The liver is normal in size. The liver contour is normal. Mildly increased hepatic echogenicity which can be seen in the setting of hepatic steatosis or underlying liver disease, increased from prior. No focal hepatic lesion. There is no intrahepatic biliary duct dilatation seen. GALLBLADDER: Normal. The gallbladder is physiologically distended without evidence of stones, sludge, polyps, wall thickening or pericholecystic fluid. COMMON BILE DUCT: Normal in caliber measuring 0.3 cm in diameter. RIGHT KIDNEY: Normal. No hydronephrosis. No renal calculi or focal parenchymal lesions. The kidney measures 11.0 cm in maximum dimension. LEFT KIDNEY: Normal. No hydronephrosis. No renal calculi or focal parenchymal lesions. The kidney measures 11.1 cm in maximum dimension. SPLEEN: Normal. The spleen measures 9.4 cm in maximum dimension. FREE FLUID: None. US/US abdomen complete IMPRESSION: Mildly increased hepatic echogenicity which can be seen in the setting of hepatic steatosis or underlying liver disease, increased from prior.
== END 2023-03-26 08:48 | disposition home or self-care (01) ==
LOC: HO.US 08:47
PROVIDERS: PCP Nurse Practitioner Family; Visit Provider Nurse Practitioner
DX: R19.7 Diarrhea, unspecified (principal); R93.89 Abnormal findings on diagnostic imaging of other specified body structures
CPT/HCPCS: 76700

== ENCOUNTER 2023-04-05 16:00 | Outpatient (AMB) | payer OTHER, SELFPAY ==
--- NOTE | 2023-04-05 16:07 | A.OFFVIS_ITS ---
Intake Vital Signs 04/05/23 16:13 Height 5 ft 7 in Weight 165 lb 5.547 oz BMI 25.9 BP 141/88 H Blood Pressure Location Lt brachial Position Sitting Pulse 72 Intake Visit Reasons: 5 weeks follow up Intake Note: Saima presents in the office as a 5 week follow up. CC: She states she is not having any concerns today. Allergies Sulfa (Sulfonamide Antibiotics) [SULFA (SULFONAMIDE ANTIBIOTICS)] Allergy (Unknown, Verified 05/01/23 08:18) UNKNOWN, hives HPI 5 weeks follow up HPI Details Assessment & Plan (1) Chronic idiopathic constipation: Code(s): K59.04 - Chronic idiopathic constipation Plan: She was doing well until about 2 weeks ago, when her GERD became severe and she has pain that radiated under her ribs bilaterally. She then had some diarrhea which relieved the GERD. BUT she has remaining discomfort under her ribs around to her back. She started low dose methotrexate and folic acid. BUT she has been on this since December. She had pain that radiated up the the right shoulder at the time, Now most discomfort in the right abd upper mid. She stopped the senna and fiber. She continues on her pantoprazole and famotidine. We will get US and EGD (she had ? mural thickening on [address] CT). There are no prior problems with anesthesia or sedation. She denies any cardiac or respiratory problems. There are no infectious disease problems. ROV 4 weeks. (2) GERD (gastroesophageal reflux diseas e): Code(s): K21.9 - Gastro-esophageal reflux disease without esophagitis (3) Abdominal bloating: Code(s): R14.0 - Abdominal distension (gaseous) (4) Acute diarrhea: Code(s): R19.7 - Diarrhea, unspecified (5) Abnormal finding on CT scan: Comment: ? mural thickening Code(s): R93.89 - Abnormal findings on diagnostic imaging of other specified body structures (6) Pre-op examination: Code(s): Z01.818 - Encounter for other preprocedural examination Orders: Orders EGD with [facility] - G I Use Only 02/27/23 R19.7 - Diarrhea, unspecified, R93.8 9 - Abnormal findi ngs on diagnostic imaging of other s pecified body stru ctures US abdomen complet e 02/27/23 R19.7 - Diarrhea, unspecified, R93.8 9 - Abnormal findi ngs on diagnostic imaging of other s pecified body stru ctures EGD Scheduled for October Biopsy Ultrasound of the abdomen 03/27/23 FINDINGS: PANCREAS: Normal. ABDOMINAL AORTA: The proximal, mid, and distal segments are normal in caliber. INFERIOR VENA CAVA: Visualized portions are normal. LIVER: The liver is normal in size. The liver contour is normal. Mildly increased hepatic echogenicity which can be seen in the setting of hepatic steatosis or underlying liver disease, increased from prior. No focal hepatic lesion. There is no intrahepatic biliary duct dilatation seen. GALLBLADDER: Normal. The gallbladder is physiologically distended without evidence of stones, sludge, polyps, wall thickening or pericholecystic fluid. COMMON BILE DUCT: Normal in caliber measuring 0.3 cm in diameter. RIGHT KIDNEY: Normal. No hydronephrosis. No renal calculi or focal parenchymal lesions. The kidney measures 11.0 cm in maximum dimension. LEFT KIDNEY: Normal. No hydronephrosis. No renal calculi or focal parenchymal lesions. The kidney measures 11.1 cm in maximum dimension. SPLEEN: Normal. The spleen measures 9.4 cm in maximum dimension. FREE FLUID: None. US/US abdomen complete IMPRESSION: Mildly increased hepatic echogenicity which can be seen in the setting of hepatic steatosis or underlying liver disease, increased from prior. TODAY'S VISIT She DOES have unusual positioning of her bowels r/t 2021 CT, and the pain still comes and goes and she still feels constipated. She has senna and fiber but starts adn stops this periodically. If she takes 2 senna she has a lot of cram ping, but 1 senna and 1 fiber seems to help. We will start a trial of bentyl for this 20mg. HEr EGD is scheduled. US unremarkable for GB or other pathology. Keep 05/01 appt. [facility] Medical History (Updated 04/17/23 @ 18:39 by Anitra Nash MD) Pseudotumor cerebri Monoclonal gammopathies Surgical History History of esophagogastroduodenoscopy (EGD) Hx of dilation and curettage [place] teeth removed Family History Mother Metabolic disease Diabetes Breast cancer Hypertension High cholesterol Psoriasis Father Hypertension High cholesterol Maternal Grandmother Pancreatic cancer Maternal Grandfather Heart disease Paternal Grandfather Alzheimer disease Paternal Grandfather Dementia Social History Household Members: Spouse and Children Housing: House Are you a primary before and after school daycare worker to a significant other at home: No Do you presently have visiting nurse or other home services: No Alcohol intake: current Alcohol intake frequency: a few times a week Alcohol type: wine Patient Tobacco Use Status: Never used Tobacco e-Cigarette/Vaping Use: Never Used service: No Current occupational status: employed Cognitive needs: No Hearing needs: No Vision needs: No Review of Systems Const Denies fatigue, Denies fever(s), Denies night sweats, Denies poor appetite and Denies weight loss ENT Reports Normal hearing present, Denies dental pain, Denies dysphagia, Denies hearing loss, Denies mouth pain, Denies odynophagia, Denies throat swelling, Denies tongue swelling and Reports other (Dentition adequate) Card Reports no additional complaints Resp Reports no additional complaints GI Reports abdominal pain, Denies melena, Reports bloating, Denies hematochezia, Reports constipation, Denies GI cramping, Denies dysphagia, Denies excessive flatus, Denies early satiety, Denies heartburn, Denies diarrhea, Denies nausea, Denies odynophagia, Denies vomiting and Denies hematemesis Skin/Breast Denies pruritus, Denies lesions, Denies rash and Denies jaundice Neuro Reports Normal hearing present and Denies Abnormal speech present Endo Denies fatigue Aller/Immun Denies throat swelling and Denies tongue swelling Physical Exam Vital Signs: Last Vital Signs Pulse 72 04/05/23 16:13 BP 141/88 H 04/05/23 16:13 BMI result Body Mass Index 25.9 Const General: cooperative, no acute distress, well developed and well groomed Nutritional Appearance: average body habitus and well nourished Orientation/consciousness: oriented to person, oriented to place and oriented to time Limitations: No language barrier HEENT Head: Yes normocephalic and Yes atraumatic Eyes General: appearance normal, both eyes and all related structures Pupils: Equal, round and reactive pupils present Neck Neck: Yes normal visual inspection and Yes no lymphadenopathy Thyroid: Thyroid normal Resp Effort & Inspection: normal respiratory effort and able to speak in complete sentences Auscultation: clear to auscultation bilaterally Cardio Rate: regular rate Rhythm: regular rhythm Heart sounds: Normal, physiologic split S2 sound present Peripheral pulses: radial pulses present and posterior tibial pulses present GI Inspection: No distended and No Abdominal panniculus present Palpation (GI): Soft to palpation, Tenderness to palpation present (GI), no guarding, not rigid and No hepatosplenomegaly present Percussion: Yes normal to percussion Auscultation: normal bowel sounds Rectal Exam - Female: deferred Skin General skin exam: no rashes or lesions noted, turgor normal, skin not dry, no jaundice, No spider nevi and no striae Rashes: no rashes Nails: normal Neuro General: oriented to person, oriented to place and oriented to time Cranial nerves: Yes Equal, round and reactive pupils present and Yes Normal hearing present Speech: No Abnormal speech present Extrem General: Yes normal to inspection, No clubbing, No cyanosis and No edema Psych Appearance: grossly normal and well kempt Mental Status: mental status grossly normal Speech and movement: Normal speech and movement present Affect: normal affect Attitude: cooperative Thought process: Normal thought process present and not confabulating Thought content: Normal thought content present Insight: Fair insight present (Psych) Judgement: Fair judgement present (Psych) Results Reviewed Results Reviewed: Ultrasound of the abdomen 03/27/23 FINDINGS: PANCREAS: Normal. ABDOMINAL AORTA: The proximal, mid, and distal segments are normal in caliber. INFERIOR VENA CAVA: Visualized portions are normal. LIVER: The liver is normal in size. The liver contour is normal. Mildly increased hepatic echogenicity which can be seen in the setting of hepatic steatosis or underlying liver disease, increased from prior. No focal hepatic lesion. There is no intrahepatic biliary duct dilatation seen. GALLBLADDER: Normal. The gallbladder is physiologically distended without evidence of stones, sludge, polyps, wall thickening or pericholecystic fluid. COMMON BILE DUCT: Normal in caliber measuring 0.3 cm in diameter. RIGHT KIDNEY: Normal. No hydronephrosis. No renal calculi or focal parenchymal lesions. The kidney measures 11.0 cm in maximum dimension. LEFT KIDNEY: Normal. No hydronephrosis. No renal calculi or focal parenchymal lesions. The kidney measures 11.1 cm in maximum dimension. SPLEEN: Normal. The spleen measures 9.4 cm in maximum dimension. FREE FLUID: None. US/US abdomen complete IMPRESSION: Mildly increased hepatic echogenicity which can be seen in the setting of hepatic steatosis or underlying liver disease, increased from prior. Assessment & Plan Assessment & Plan (1) GERD (gastroesophageal reflux disease): Code(s): K21.9 - Gastro-esophageal reflux disease without esophagitis Plan: She DOES have unusual positioning of her bowels r/t 2021 CT, and the pain still comes and goes and she still feels constipated. She has senna and fiber but starts adn stops this periodically. If she takes 2 senna she has a lot of cramping, but 1 senna and 1 fiber seems to help. We will start a trial of bentyl for this 20mg. HEr EGD is scheduled. US unremarkable for GB or other pathology. Keep 05/01 appt. (2) IBS (irritable bowel syndrome): Code(s): K58.9 - Irritable bowel syndrome without diarrhea (3) Abdominal bloating: Code(s): R14.0 - Abdominal distension (gaseous) (4) Chronic idiopathic constipation: Code(s): K59.04 - Chronic idiopathic constipation Medications: New dicyclomine 20 mg PO QID 120 tabs 3RF 30 days K58.9 - Irritable bowel syndrome without diarrhea Coding Level of Care Code Est Pt Level 3 (50098) Diagnoses GERD (gastroesophageal reflux disease) K21.9 IBS (irritable bowel syndrome) K58.9 Abdominal bloating R14.0 Chronic idiopathic constipation K59.04
[2023-04-05 16:13] VITALS: BP 141/88; PULSE 72; BMI 25.9
== END 2023-04-05 16:30 | disposition home or self-care (01) ==
PROVIDERS: PCP Nurse Practitioner Family; Visit Provider Nurse Practitioner
DX: K21.9 Gastro-esophageal reflux disease without esophagitis (principal); K58.9 Irritable bowel syndrome, unspecified; R14.0 Abdominal distension (gaseous); K59.04 Chronic idiopathic constipation
CPT/HCPCS: 99213

== ENCOUNTER → 2023-04-05 16:00 | Outpatient (BNVA) | payer OTHER, SELFPAY | PROVIDERS: PCP Nurse Practitioner Family; Visit Provider Nurse Practitioner ==

== ENCOUNTER 2023-04-12 07:41 | Outpatient (REF) | payer OTHER, SELFPAY ==
[2023-04-12 09:14] LABS: MANUAL DIFF FLAG NO
[2023-04-12 10:06] LABS: Basophils Absolute Auto 0.1 X10*3/uL (0.0-0.2); Basophils Percent Auto 0.8 % (0-2); Eosinophils Absolute Auto 0.1 X10*3/uL (0.0-0.4); Eosinophils Percent Auto 1.3 % (0-4); Hematocrit 36.3 % (37.0-47.0); Hemoglobin 11.3 g/dl (12.0-16.0); Imm Gran Abs Auto 0.02 X10*3/uL (0.00-0.03); Imm Gran Pct Auto 0.3 % (0.0-0.4); Lymphocytes Absolute Auto 2.3 X10*3/uL (1.2-4.9); Lymphocytes Percent Auto 30.6 % (20-40); Mean Corpuscular HGB Conc 31.1 g/dl (31.0-35.0); Mean Corpuscular Hemoglobin 25.7 pg (27.0-33.0); Mean Corpuscular Volume 82.7 fL (80.0-98.0); Mean Platelet Volume 9.2 fL (9.4-12.3); Monocytes Absolute Auto 0.8 X10*3/uL (0.1-1.2); Monocytes Percent Auto 10.3 % (2-11); Neutrophils Absolute Auto 4.2 x10*3/uL (2.0-8.3); Neutrophils Percent Auto 56.7 % (45-73); Platelet Count 439 X10*3/uL (160-400); Red Blood Count 4.39 X10*6/uL (4.20-5.50); Red Cell Distribution Width 16.1 % (11.0-16.0); White Blood Count 7.5 X10*3/uL (4.8-10.8)
[2023-04-12 10:45] LABS: Erythrocyte Sedimentation Rate 16 MM/HR (0-20)
[2023-04-12 11:28] LABS: Alanine Aminotransferase 20 U/L (0-31); Albumin Level 4.5 g/dL (3.5-5.0); Alkaline Phosphatase 92 U/L (39-117); Anion Gap 16 (12-20); Aspartate Amino Transferase 20 U/L (5-31); Bilirubin Total 0.4 mg/dL (0.0-1.0); Blood Urea Nitrogen 14 mg/dL (9-16); C Reactive Protein 0.35 mg/dL (< or = 0.50); Carbon Dioxide 25 mmol/L (22-29); Chloride 102 mmol/L (96-108); Estimated Glomerular Filt Rate > 60; Glucose Random 88 mg/dL (60-115); Potassium 4.1 mmol/L (3.3-5.1); Sodium 139 mmol/L (135-145); Total Protein 8.4 g/dL (6.5-8.0)
== END 2023-04-12 07:42 | disposition home or self-care (01) ==
LOC: HO.MRI 07:41
PROVIDERS: Absent Provider Student in an Organized Health Care Education/Training Program; PCP Nurse Practitioner Family; Visit Provider Nurse Practitioner
DX: Z15.01 Genetic susceptibility to malignant neoplasm of breast (principal); Z79.631 Long term (current) use of antimetabolite agent; Z80.3 Family history of malignant neoplasm of breast
CPT/HCPCS: 36415; 80053; 85025; 85652; 86140

== ENCOUNTER 2023-04-17 13:16 | Day surgery (SDC) | payer OTHER, SELFPAY ==
[2023-04-13 12:01] VITALS: BMI 26.3
--- NOTE | 2023-04-16 11:51 | P.CONAN_ITS ---
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) Toe pain, left (Acute) Low back pain, unspecified (Acute) Psoriatic arthritis (Acute) Malrotation colon (Acute) IBS (irritable bowel syndrome) (Acute) Abdominal bloating (Acute) Chronic idiopathic constipation (Acute) Dyslipidemia (Acute) GERD (gastroesophageal reflux disease) (Acute) MGUS (monoclonal gammopathy of unknown significance) (Acute) Past Medical History Medical History Pseudotumor cerebri Monoclonal gammopathies Family History Family History Mother Metabolic disease Diabetes Breast cancer Hypertension High cholesterol Psoriasis Father Hypertension High cholesterol Maternal Grandmother Pancreatic cancer Maternal Grandfather Heart disease Paternal Grandfather Alzheimer disease Paternal Grandfather Dementia Surgical History Surgical History Hx of dilation and curettage [place] teeth removed Social History Social History Household Members: Spouse and Children Housing: House Are you a primary healthcare associate to a significant other at home: No Do you presently have visiting nurse or other home services: No Alcohol intake: current Alcohol intake frequency: a few times a week Alcohol type: wine Patient Tobacco Use Status: Never used Tobacco e-Cigarette/Vaping Use: Never Used Use of substances other than those prescribed or required for medical reasons: No Advance Directives: No Advance Directives Information Provided: Yes service: No Current occupational status: employed Cognitive needs: No Hearing needs: No Vision needs: No Meds Allergies Allergy/AdvReac Type Severity Reaction Status Date / Time Sulfa (Sulfonamide Allergy Unknown UNKNOWN, Verified 04/05/23 16:14 Antibiotics) hives [SULFA (SULFONAMIDE ANTIBIOTICS)] Home Medications Medication Instructions Recorded Confirmed Last Taken Type sennosides 8.6 mg-docusate sodium 2 tab-cap PO BEDTIME 05/26/22 05/26/22 Unknown History 50 mg tablet (Senna-S) levocetirizine 5 mg tablet (Xyzal) 5 mg PO QPM 07/19/22 Unknown History psyllium husk 0.4 gram capsule 0.8 g PO DAILY 07/19/22 Unknown History (Daily Fiber) simethicone 180 mg capsule (Gas 180 mg PO BID 07/19/22 Unknown History Relief (simethicone)) Exam Exam Date and Time: April 16, 2023 1151 Height,Weight and Vital Signs: Height 5 ft 7 in Weight 76.204 kg Pertinent Lab Results Pertinent Lab Results: Laboratory Tests 04/12/23 09:13 WBC 7.5 Hgb 11.3 L Hct 36.3 L Plt Count 439 H Sodium 139 Potassium 4.1 Chloride 102 Carbon Dioxide 25 BUN 14 Creatinine 0.77 Assessment and Plan Assessment Anesthesia Assessment: Chart Reviewed Documented by User: Yina San MD 04/17/23 15:18 [facility] Past Medical History Medical History Pseudotumor cerebri Monoclonal gammopathies Family History Family History Mother Metabolic disease Diabetes Breast cancer Hypertension High cholesterol Psoriasis Father Hypertension High cholesterol Maternal Grandmother Pancreatic cancer Maternal Grandfather Heart disease Paternal Grandfather Alzheimer disease Paternal Grandfather Dementia Family history of problems with anesthesia: No Surgical History Surgical History Hx of dilation and curettage [place] teeth removed History of Problems with Anesthesia: No Social History Social History Household Members: Spouse and Children Housing: House Are you a primary healthcare associate to a significant other at home: No Do you presently have visiting nurse or other home services: No Alcohol intake: current Alcohol intake frequency: a few times a week Alcohol type: wine Patient Tobacco Use Status: Never used Tobacco e-Cigarette/Vaping Use: Never Used Use of substances other than those prescribed or required for medical reasons: No Advance Directives: No Advance Directives Information Provided: Yes service: No Current occupational status: employed Cognitive needs: No Hearing needs: No Vision needs: No Meds Allergies Allergy/AdvReac Type Severity Reaction Status Date / Time Sulfa (Sulfonamide Allergy Unknown UNKNOWN, Verified 04/05/23 16:14 Antibiotics) hives [SULFA (SULFONAMIDE ANTIBIOTICS)] Home Medications Medication Instructions Recorded Confirmed Last Taken Type sennosides 8.6 mg-docusate sodium 2 tab-cap PO BEDTIME 05/26/22 05/26/22 Unknown History 50 mg tablet (Senna-S) levocetirizine 5 mg tablet (Xyzal) 5 mg PO QPM 07/19/22 Unknown History psyllium husk 0.4 gram capsule 0.8 g PO DAILY 07/19/22 Unknown History (Daily Fiber) simethicone 180 mg capsule (Gas 180 mg PO BID 07/19/22 Unknown History Relief (simethicone)) Exam Airway Mallampati Class: II TM Dist: >3cm Neck ROM: Full Assessment and Plan Assessment Anesthesia Assessment: Anesthesia Plan Discussed Final Anesthetic Review Family History of Problems with Anesthesia: No History of Problems with Anesthesia: No NPO: Yes ASA Class: II Final Preanesthetic Review: No Changes in Pt Med Stat, Meds/Allgs Chart Reviewed, Consent Obtained/Reviewed and Anes Risks/Benef Reviewed Patient Risk: Low Procedure Risk: Low Anesthetic Plan Anesthetic Plan: MAC: Disposition: Standard PACU
[2023-04-17 13:56] VITALS: BP 162/94; PULSE 100; RESP 16; TEMP 37.2; O2SAT 99
[2023-04-17 14:01] LABS: UPreg QC Valid YES; Urine Pregnancy NEGATIVE (NEGATIVE)
--- NOTE | 2023-04-17 14:30 | MHC.SHP ---
Pre-Procedural Eval Section A Date of Service: 04/17/23 Section B Chief Complaint: GERD, Abdominal distension, Abnormal findings Relevant Family History (Specify if Yes): No Relevant Social History: None Present Medications: see Short Stay Collaborative assessment Medical History: Significant History (Pseudotumor cerebri Monoclonal gammopathies) History of Previous Operations: Relevant previous surgery/procedure and date(s) (wisdom teeth ) Allergies: Allergies Allergy/AdvReac Type Severity Reaction Status Date / Time Sulfa (Sulfonamide Allergy Unknown UNKNOWN, Verified 04/05/23 16:14 Antibiotics) hives [SULFA (SULFONAMIDE ANTIBIOTICS)] Review of Systems Sugical H&P ROS: Negative: Constitution, Cardiovascular, Respiratory, Neurological, Psychiatric, Hem-Onc, Allergic/Immunologic, Gastrointestinal, Genitourinary, Musculoskeletal, Integumentary, Endocrine and Eyes/Ears/Nose/Throat Exam Surgical H&P Exam: Normal: HEENT, Normal: Heart, Normal: Lungs, Normal: Extremities, Normal: Skin and Normal: Neurological and Significant Findings: Abdomen (epigastric pain, well localized-pos head lift sign) Plan Diagnosis/Plan: Unchanged I have reviewed the history and physical and performed a pertinent physical examination on my patient. No changes have occurred unless specified. suspect more myofascial pain. Time Spent With Patient Time: Total time managing care of this patient today ____ minutes.
--- NOTE | 2023-04-17 14:31 | W.PM.OPN ---
Operative Note Operative Note Date of Service: 04/17/23 Narrative: Procedure Description: EGD Indication: epigastric pain Anesthesia: MAC FLEXIBLE TRANSORAL UPPER GASTROINTESTINAL ENDOSCOPY UPPER ENDOSCOPY Consent: Indications for the procedure and potential complications of bleeding, perforation, reaction to medications and missed diagnosis were discussed with the patient and informed consent was obtained. Instrument: Olympus GIF H 190 J mid size upper endoscope Monitoring: Vital signs and clinical assessment, continuous EKG monitoring, Pulse oximetry, Carbon Dioxide monitoring and blood pressure monitoring were done throughout the procedure. Procedure: The patient was placed in the left lateral decubitis position and pre-procedure medications were administered and a bite block was placed. The endoscope was inserted into the mouth and advanced under direct vision to the third part of duodenum. A careful inspection was made as the upper endoscope was withdrawn including a retroflexed examination of the proximal stomach; Findings and interventions are described below. Findings: Larynx:normal Esophagus: GE junction at 32 cm, diaphragm hiatus at 34 cm, lax LES noted with schatzki ring and 2 cm sliding hiatal hernia, bx taken from GEJ, distal esophagus and proximal esophagus Stomach: Patchy gastric erythema. Biopsies were obtained. Grade 2 flap valve on retroflexed examination of the cardia. Duodenum: Normal bulb and descending duodenum, bx taken Intervention: Biopsies as noted above Impression/Findings: lax LES hiatal hernia schatzki ring PLAN: await bx consider pain management referral for trigger point injection might need surgery with cecopexy for her chronic constipation and abn placed cecum which can also be associated with chronic abdo pain
[2023-04-17 15:13] VITALS: BP 139/93; PULSE 95; RESP 16; TEMP 36.2; O2SAT 97
[2023-04-17 15:28] VITALS: BP 135/91; PULSE 95; RESP 16; TEMP 36.2; O2SAT 97
== END 2023-04-17 15:37 | disposition home or self-care (01) ==
PROVIDERS: Nurse Practitioner; PCP Nurse Practitioner Family; Visit Provider Internal Medicine Gastroenterology
PROC: 0DJ08ZZ Inspection of Upper Intestinal Tract, Via Natural or Artificial Opening Endoscopic (ICD-10-PCS; CPT 43235; principal; 2023-04-17 15:20)
DX: R10.13 Epigastric pain (principal); K21.9 Gastro-esophageal reflux disease without esophagitis; R14.0 Abdominal distension (gaseous); K22.2 Esophageal obstruction; K22.4 Dyskinesia of esophagus; K44.9 Diaphragmatic hernia without obstruction or gangrene; G93.2 Benign intracranial hypertension; D47.2 Monoclonal gammopathy; Z79.899 Other long term (current) drug therapy; Z88.2 Allergy status to sulfonamides
CPT/HCPCS: 43239; 81025; 88305; 88342

== ENCOUNTER → 2023-04-17 13:16 | Outpatient (BNV) | payer OTHER, SELFPAY | PROVIDERS: PCP Nurse Practitioner Family; Visit Provider Internal Medicine Gastroenterology | DX: K22.2 Esophageal obstruction (principal); K22.4 Dyskinesia of esophagus | CPT/HCPCS: 43239 ==

== ENCOUNTER 2023-05-01 08:11 | Outpatient (AMB) | payer OTHER, SELFPAY ==
--- NOTE | 2023-05-01 08:19 | A.OFFVIS_ITS ---
Intake Vital Signs 05/01/23 08:21 Height 5 ft 7 in Weight 160 lb BMI 25.1 BP 137/74 Blood Pressure Location Lt brachial Position Sitting Pulse 72 Intake Visit Reasons: S/p egd Nash Allergies Sulfa (Sulfonamide Antibiotics) [SULFA (SULFONAMIDE ANTIBIOTICS)] Allergy (Unknown, Verified 05/01/23 08:18) UNKNOWN, hives HPI S/p egd Nash HPI Details Assessment & Plan (1) Chronic idiopathic constipation: Code(s): K59.04 - Chronic idiopathic constipation Plan: She was doing well until about 2 weeks ago, when her GERD became severe and she has pain that radiated under her ribs bilaterally. She then had some diarrhea which relieved the GERD. BUT she has remaining discomfort under her ribs around to her back. She started low dose methotrexate and folic acid. BUT she has been on this since December. She had pain that radiated up the the right shoulder at the time, Now most discomfort in the right abd upper mid. She stopped the senna and fiber. She continues on her pantoprazole and famotidine. We will get US and EGD (she had ? mural thickening on 2021 CT). There are no prior problems with anesthesia or sedation. She denies any cardiac or respiratory problems. There are no infectious disease problems. ROV 4 weeks. (2) GERD (gastroesophageal reflux diseas e): Code(s): K21.9 - Gastro-esophageal reflux disease without esophagitis (3) Abdominal bloating: Code(s): R14.0 - Abdominal distension (gaseous) (4) Acute diarrhea: Code(s): R19.7 - Diarrhea, unspecified (5) Abnormal finding on CT scan: Comment: ? mural thickening Code(s): R93.89 - Abnormal findings on diagnostic imaging of other specified body structures (6) Pre-op examination: Code(s): Z01.818 - Encounter for other preprocedural examination Orders: Orders EGD with [facility] - Yara I Use Only 02/27/23 R19.7 - Diarrhea, unspecified, R93.8 9 - Abnormal findi ngs on diagnostic imaging of other s pecified body stru ctures US abdomen complet e 02/27/23 R19.7 - Diarrhea, unspecified, R93.8 9 - Abnormal findi ngs on diagnostic imaging of other s pecified body stru ctures EGD 04/18/23 Findings: Larynx:normal Esophagus: GE junction at 32 cm, diaphragm hiatus at 34 cm, lax LES noted with schatzki ring and 2 cm sliding hiatal hernia, bx taken from GEJ, distal esophagus and proximal esophagus Stomach: Patchy gastric erythema. Biopsies were obtained. Grade 2 flap valve on retroflexed examination of the cardia. Duodenum: Normal bulb and descending duodenum, bx taken Intervention: Biopsies as noted above Impression/Findings: lax LES hiatal hernia schatzki ring PLAN: await bx consider pain management referral for trigger point injection might need surgery with cecopexy for her chronic constipation and abn placed cecum which can also be associated with chronic abdo pain Biopsy Received: 04/18/23 Diagnosis A. Duodenum, biopsy: Duodenal mucosa within normal limits. B. Stomach, biopsy: Antral-type and oxyntic mucosa with mild chronic inactive inflammation; no Helicobacter organisms seen. C. GE junction, biopsy: - Cardiofundic-type mucosa with mild chr onic inactive inflammation; no intestinal metaplasia seen. - Squamous mucosa within normal limits. D. Esophagus, distal, biopsy: Squamous epithelium within normal limits; no inflammation seen. E. Esophagus, proximal, biopsy: Squamous epithelium within normal limits; no inflammation seen. Ultrasound of the abdomen 03/27/23 FINDINGS: PANCREAS: Normal. ABDOMINAL AORTA: The proximal, mid, and distal segments are normal in caliber. INFERIOR VENA CAVA: Visualized portions are normal. LIVER: The liver is normal in size. The liver contour is normal. Mildly increased hepatic echogenicity which can be seen in the setting of hepatic steatosis or underlying liver disease, increased from prior. No focal hepatic lesion. There is no intrahepatic biliary duct dilatation seen. GALLBLADDER: Normal. The gallbladder is physiologically distended without evidence of stones, sludge, polyps, wall thickening or pericholecystic fluid. COMMON BILE DUCT: Normal in caliber measuring 0.3 cm in diameter. RIGHT KIDNEY: Normal. No hydronephrosis. No renal calculi or focal parenchymal lesions. The kidney measures 11.0 cm in maximum dimension. LEFT KIDNEY: Normal. No hydronephrosis. No renal calculi or focal parenchymal lesions. The kidney measures 11.1 cm in maximum dimension. SPLEEN: Normal. The spleen measures 9.4 cm in maximum dimension. FREE FLUID: None. US/US abdomen complete IMPRESSION: Mildly increased hepatic echogenicity which can be seen in the setting of hepatic steatosis or underlying liver disease, increased from prior. TODAY'S VISIT. She has stopped taking senna Dr Nash told me it would give me it would give me floppy colon. I disagrees with this, as the latest research does not bear this out. She will be seeing surgery and pain mgmt.....She does not feel ready for surgery. She does take a fiber pill; increase to bid. ROV 3 mos. [facility] Medical History (Updated 04/17/23 @ 18:39 by Anitra Nash MD) Pseudotumor cerebri Monoclonal gammopathies Surgical History History of esophagogastroduodenoscopy (EGD) Hx of dilation and curettage [place] teeth removed Family History Mother Metabolic disease Diabetes Breast cancer Hypertension High cholesterol Psoriasis Father Hypertension High cholesterol Maternal Grandmother Pancreatic cancer Maternal Grandfather Heart disease Paternal Grandfather Alzheimer disease Paternal Grandfather Dementia Social History Household Members: Spouse and Children Housing: House Are you a primary skin care technician to a significant other at home: No Do you presently have visiting nurse or other home services: No Alcohol intake: current Alcohol intake frequency: a few times a week Alcohol type: wine Patient Tobacco Use Status: Never used Tobacco e-Cigarette/Vaping Use: Never Used service: No Current occupational status: employed Cognitive needs: No Hearing needs: No Vision needs: No Review of Systems Const Denies fatigue, Denies fever(s), Denies night sweats, Denies poor appetite and Denies weight loss ENT Reports Normal hearing present, Denies dental pain, Denies dysphagia, Denies hearing loss, Denies mouth pain, Denies odynophagia, Denies throat swelling, Denies tongue swelling and Reports other (Dentition adequate) Card Reports no additional complaints Resp Reports no additional complaints GI Reports abdominal pain, Denies melena, Denies bloating, Denies hematochezia, Reports constipation, Denies GI cramping, Denies dysphagia, Denies excessive flatus, Denies early satiety, Reports heartburn, Reports diarrhea, Denies nausea, Denies odynophagia, Denies vomiting and Denies hematemesis Skin/Breast Denies pruritus, Denies lesions, Denies rash and Denies jaundice Neuro Reports Normal hearing present and Denies Abnormal speech present Endo Denies fatigue Aller/Immun Denies throat swelling and Denies tongue swelling Physical Exam Vital Signs: Last Vital Signs Pulse 72 05/01/23 08:21 BP 137/74 05/01/23 08:21 BMI result Body Mass Index 25.1 Const General: cooperative, no acute distress, well developed and well groomed Nutritional Appearance: average body habitus and well nourished Orientation/consciousness: oriented to person, oriented to place and oriented to time Limitations: No language barrier HEENT Head: Yes normocephalic and Yes atraumatic Eyes General: appearance normal, both eyes and all related structures Pupils: Equal, round and reactive pupils present Neck Neck: Yes normal visual inspection and Yes no lymphadenopathy Thyroid: Thyroid normal Resp Effort & Inspection: normal respiratory effort and able to speak in complete sentences Auscultation: clear to auscultation bilaterally Cardio Rate: regular rate Rhythm: regular rhythm Heart sounds: Normal, physiologic split S2 sound present Peripheral pulses: radial pulses present and posterior tibial pulses present GI Inspection: No distended and No Abdominal panniculus present Palpation (GI): Soft to palpation, Tenderness to palpation present (GI), no guarding, not rigid and No hepatosplenomegaly present Percussion: Yes normal to percussion Auscultation: normal bowel sounds Rectal Exam - Female: deferred Skin General skin exam: no rashes or lesions noted, turgor normal, skin not dry, no jaundice, No spider nevi and no striae Rashes: no rashes Nails: normal Neuro General: oriented to person, oriented to place and oriented to time Cranial nerves: Yes Equal, round and reactive pupils present and Yes Normal h earing present Speech: No Abnormal speech present Extrem General: Yes normal to inspection, No clubbing, No cyanosis and No edema Psych Appearance: grossly normal and well kempt Mental Status: mental status grossly normal Speech and movement: Normal speech and movement present Affect: normal affect Attitude: cooperative Thought process: Normal thought process present and not confabulating Thought content: Normal thought content present Insight: Fair insight present (Psych) Judgement: Fair judgement present (Psych) Results Reviewed Results Reviewed: EGD 04/18/23 Findings: Larynx:normal Esophagus: GE junction at 32 cm, diaphragm hiatus at 34 cm, lax LES noted with schatzki ring and 2 cm sliding hiatal hernia, bx taken from GEJ, distal esophagus and proximal esophagus Stomach: Patchy gastric erythema. Biopsies were obtained. Grade 2 flap valve on retroflexed examination of the cardia. Duodenum: Normal bulb and descending duodenum, bx taken Intervention: Biopsies as noted above Impression/Findings: lax LES hiatal hernia schatzki ring PLAN: await bx consider pain management referral for trigger point injection might need surgery with cecopexy for her chronic constipation and abn placed cecum which can also be associated with chronic abdo pain Biopsy Received: 04/18/23 Diagnosis A. Duodenum, biopsy: Duodenal mucosa within normal limits. B. Stomach, biopsy: Antral-type and oxyntic mucosa with mild chronic inactive inflammation; no Helicobacter organisms seen. C. GE junction, biopsy: - Cardiofundic-type mucosa with mild chronic inactive inflammation; no intestinal metaplasia seen. - Squamous mucosa within normal limits. D. Esophagus, distal, biopsy: Squamous epithelium within normal limits; no infl ammation seen. E. Esophagus, proximal, biopsy: Squamous epithelium within normal limits; no inflammation seen. Ultrasound of the abdomen 03/27/23 FINDINGS: PANCREAS: Normal. ABDOMINAL AORTA: The proximal, mid, and distal segments are normal in caliber. INFERIOR VENA CAVA: Visualized portions are normal. LIVER: The liver is normal in size. The liver contour is normal. Mildly increased hepatic echogenicity which can be seen in the setting of hepatic steatosis or underlying liver disease, increased from prior. No focal hepatic lesion. There is no intrahepatic biliary duct dilatation seen. GALLBLADDER: Normal. The gallbladder is physiologically distended without evidence of stones, sludge, polyps, wall thickening or pericholecystic fluid. COMMON BILE DUCT: Normal in caliber measuring 0.3 cm in diameter. RIGHT KIDNEY: Normal. No hydronephrosis. No renal calculi or focal parenchymal lesions. The kidney measures 11.0 cm in maximum dimension. LEFT KIDNEY: Normal. No hydronephrosis. No renal calculi or focal parenchymal lesions. The kidney measures 11.1 cm in maximum dimension. SPLEEN: Normal. The spleen measures 9.4 cm in maximum dimension. FREE FLUID: None. US/US abdomen complete IMPRESSION: Mildly increased hepatic echogenicity which can be seen in the setting of hepatic steatosis or underlying liver disease, increased from prior. Assessment & Plan Assessment & Plan (1) Malrotation colon: Comment: discovered on CT 2018 Code(s): Q43.3 - Congenital malformations of intestinal fixation Plan: She has stopped taking senna Dr Nash told me it would give me it would give me floppy colon. I disagrees with this, as the latest research does not bear this out. She will be seeing surgery and pain mgmt.....She does not feel ready for surgery. She does take a fiber pill; increase to bid. ROV 3 mos. (2) Chronic idiopathic constipation: Code(s): K59.04 - Chronic idiopathic constipation (3) GERD (gastroesophageal reflux disease): Code(s): K21.9 - Gastro-esophageal reflux disease without esophagitis Coding Level of Care Code Est Pt Level 3 (19108) Diagnoses Malrotation colon Q43.3 Chronic idiopathic constipation K59.04 GERD (gastroesophageal reflux disease) K21.9
[2023-05-01 08:21] VITALS: BP 137/74; PULSE 72; BMI 25.1
== END 2023-05-01 08:47 | disposition home or self-care (01) ==
PROVIDERS: PCP Nurse Practitioner Family; Visit Provider Nurse Practitioner
DX: Q43.3 Congenital malformations of intestinal fixation (principal); K59.04 Chronic idiopathic constipation; K21.9 Gastro-esophageal reflux disease without esophagitis
CPT/HCPCS: 99213

== ENCOUNTER → 2023-05-01 08:11 | Outpatient (BNVA) | payer OTHER, SELFPAY | PROVIDERS: PCP Nurse Practitioner Family; Visit Provider Nurse Practitioner ==

== ENCOUNTER 2023-05-07 15:40 | Outpatient (AMB) | payer OTHER, SELFPAY ==
--- NOTE | 2023-05-07 15:41 | A.OFFVIS_ITS ---
Intake Vital Signs 05/07/23 15:44 Height 5 ft 7 in Weight 164 lb BMI 25.7 BP 173/97 H Blood Pressure Location Rt brachial Position Sitting Pulse 79 Intake Visit Reasons: Congenital malformations of intestinal fixation Intake Note: Patient c/o large bowel malformation. C/o nausea, upper abd pain, on and off constipation. Taking famotidine at night, pantoprazole and fiber. 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 Patient has had intractable complaints of reflux and heartburn (GERD). She has also had 2 episodes of colicky lower abdominal pain. The latter resulted in a CT scan demonstrating findings of a mobile cecum. Patient has had extensive workup by GI including multiple upper and lower endoscopies and several scans. Patient has a question of interval bowel syndrome among other comorbidities. At present, patient has her usual nonspecific abdominal complaints and loose stool. As noted above, she has had 2 episodes of the colicky severe abdominal pain but has not had any recurrence of the symptoms. Chart was reviewed patient evaluated. No prior abdominal surgeries PFSH Medical History Pseudotumor cerebri Monoclonal gammopathies Surgical History History of esophagogastroduodenoscopy (EGD) Hx of dilation and curettage [place] teeth removed Family History Mother Metabolic disease Diabetes Breast cancer Hypertension High cholesterol Psoriasis Father Hypertension High cholesterol Maternal Grandmother Pancreatic cancer Maternal Grandfather Heart disease Paternal Grandfather Alzheimer disease Paternal Grandfather Dementia Social History Household Members: Spouse and Children Housing: House Are you a primary landcare facilitator to a significant other at home: No Do you presently have visiting nurse or other home services: No Alcohol intake: current Alcohol intake frequency: a few times a week Alcohol type: wine Patient Tobacco Use Status: Never used Tobacco e-Cigarette/Vaping Use: Never Used yeppt service: No Current occupational status: employed Cognitive needs: No Hearing needs: No Vision needs: No Physical Exam Vital Signs: Last Vital Signs Pulse 79 05/07/23 15:44 BP 173/97 H 05/07/23 15:44 BMI result Body Mass Index 25.7 GI Other: Abdomen soft, moderately corpulent. 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 I assured her that her mobile cecum issue is unrelated to her reflux/heartburn complaints. Definitive surgical options for cecal mobility/volvulus is cecectomy. At present, patient is not too keen on having any surgical procedures. The kavitha archer plan is see her in a few weeks time, and review her clinical course and direct further interventions/surgery/studies based on her symptomatology. All questions were answered. As noted, patient is scheduled to see us as directed or p.r.n.. Coding Level of Care Code New Pt Level 4 (36972) Diagnoses Epigastric pain determined by examination R10.13 IBS (irritable bowel syndrome) K58.9 Mobile cecum Q43.3
[2023-05-07 15:44] VITALS: BP 173/97; PULSE 79; BMI 25.7
== END 2023-05-07 16:05 | disposition home or self-care (01) ==
PROVIDERS: PCP Nurse Practitioner Family; Referring Provider Internal Medicine Gastroenterology; Visit Provider Surgery
DX: R10.13 Epigastric pain (principal); K58.9 Irritable bowel syndrome, unspecified; Q43.3 Congenital malformations of intestinal fixation
CPT/HCPCS: 99204

== ENCOUNTER → 2023-05-07 15:40 | Outpatient (BNVA) | payer OTHER, SELFPAY | PROVIDERS: PCP Nurse Practitioner Family; Referring Provider Internal Medicine Gastroenterology; Visit Provider Surgery ==

== ENCOUNTER 2023-05-08 14:09 | Outpatient (REF) | payer OTHER, SELFPAY ==
--- NOTE | ~2023-05-08 | MR_ITS ---
EXAMINATION: MR BREAST WITHOUT AND WITH CONTRAST, BILATERAL CLINICAL INFORMATION: High-risk screening. 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 COMPARISON: MRI 02/28/2022, 02/18/2021, 03/10/2020 TECHNIQUE: Imaging was performed with a dedicated breast coil. Prior to the administration of contrast, bilateral axial T1 and bilateral axial T2 weighted sequences were obtained. After the uneventful administration of?7.5 mL of Gadavist, dynamic contrast-enhanced VIBRANT series through the breasts in the axial plane were performed. Subtracted images were performed and reviewed. A delayed sagittal sequence through both breasts was acquired. Additionally, CAD post-processing, including maximum intensity projections, 3-D reconstructions and kinetic analysis, were performed an independent workstation and reviewed by the interpreting radiologist is a portion of this exam. FINDINGS: The patient's fibroglandular tissue demonstrates moderate background enhancement. LEFT BREAST: In the 10:00 position of the left breast, 6.3 cm from the nipple, there is new short segment of nonmass linear enhancement measuring up to 5 mm (image 49, series 100). Finding demonstrates progressive or type I enhancement and is indeterminant. Recommend MRI guided biopsy. No other suspicious nonmass or mass enhancement. Review of the T2-weighted images demonstrates no additional findings. Review of the kinetic images demonstrates no additional suspicious findings. RIGHT BREAST: No suspicious masslike or non-masslike enhancement. No abnormal skin thickening or nipple retraction. No abnormal architectural distortion. Review of the T2 weighted images demonstrates no fibrocystic changes or dilated ducts. Review of kinetic images reveals no additional findings. There is no suspicious internal mammary chain or axillary adenopathy. Limited views of the chest and abdomen are unremarkable. MR/MR breast BI wo/w con IMPRESSION: Indeterminate nonmass enhancement, left breast, 10:00. No MR specific evidence of right breast malignancy. ASSESSMENT: LEFT BREAST: BI-RADS 4 - Suspicious abnormality - Biopsy should be considered. RIGHT BREAST: BI-RADS 1-Negative RECOMMENDATIONS: MR guided biopsy, left breast. Recommendation were given to Anastacia ( Direct Support Professional) on 05/11/23 @ 5:12pm.
[2023-05-08] MEDS: gadobutroL 7.5 ML VIAL IVPUSH (12:31)
== END 2023-05-08 14:10 | disposition home or self-care (01) ==
LOC: HO.MRI 14:09
PROVIDERS: PCP Nurse Practitioner Family; Visit Provider Nurse Practitioner
DX: Z15.01 Genetic susceptibility to malignant neoplasm of breast (principal); Z80.3 Family history of malignant neoplasm of breast
CPT/HCPCS: 77049; A9585

== ENCOUNTER 2023-05-16 15:38 | Outpatient (AMB) | payer OTHER, SELFPAY ==
[2023-05-16 15:40] VITALS: BP 122/74; PULSE 87; TEMP 36.4; O2SAT 99; BMI 25.9
--- NOTE | 2023-05-16 15:40 | MHC.OFFVIS ---
Intake Vital Signs 05/16/23 15:40 Height 5 ft 7 in Weight 165 lb 2.02 oz BMI 25.9 BP 122/74 Blood Pressure Location Rt brachial Position Sitting Pulse 87 Pulse Source Pulse Oximeter Temp 97.6 F Temp Source Skin Pulse Oximetry (%) 99 Intake Visit Reasons: PSA Intake Note: Pt last seen 12/12/22, presents today for follow up and test results. MTX 20mg weekly and folic acid daily. Allergies Sulfa (Sulfonamide Antibiotics) [SULFA (SULFONAMIDE ANTIBIOTICS)] Allergy (Unknown, Verified 05/16/23 15:41) UNKNOWN, hives Medication List - Last Reconciled 05/16/23 by Wil Peñaloza MD dextromethorphan-guaifenesin 30-600 mg Take 1 tab once weekly 8-12 hours after methotrexate famotidine 40 mg PO BEDTIME 90 days folic acid 1 mg PO DAILY ibuprofen 800 mg PO TID PRN levocetirizine (Xyzal) 5 mg PO QPM methotrexate sodium 20 mg (8 x 2.5 mg) PO QWEEK pantoprazole (Protonix) 40 mg PO DAILY 90 days psyllium husk (Daily Fiber) 0.8 grams PO DAILY simethicone (Gas Relief (simethicone)) 180 mg PO BID HPI HPI Comments History of Present Illness Details 42-year-old female with psoriatic arthritis returns for follow-up. She is on methotrexate 20 mg weekly and folic acid 1 mg daily. Well tolerated. States that she gets fatigued the day after she takes methotrexate. But it does not last long. Denies any other side effects. States that her toe swelling has resolved for the last 2 months. Recently however she developed right 5th DIP pain and swelling that self resolve in about 2 weeks. She then developed similar pain and swelling in her left middle finger PIP and left index DIP. Of note patient was evaluated by Dr. Dickerson in 2019 at that time she had similar pain and swelling of her right 4th toe. She was started on ibuprofen 800 mg 3 to 4 times a day for 1-2 months with resolution of the pain and swelling. She stated that previously she has had multiple knee joint pain swelling, she has had multiple arthrocentesis and steroid injections. She also stated that in 2014 she was diagnosed with pseudotumor cerebri and she was advised to lose weight. She lost 10-20 lb of weight with improvement of her headaches and blurry vision. Three months ago she started having left 2nd toe pain and swelling which is quite similar to the swelling she had in 2019. She denies any back pain. No other joint complaints. Denies any skin rashes. Her mother has psoriasis. There is no history suggestive of uveitis or IBD. Patient stated that in 2019 she was referred to a dried fruit washer in [place] and methotrexate was recommended but patient did not start it. [facility] Medical History Pseudotumor cerebri Monoclonal gammopathies Surgical History History of esophagogastroduodenoscopy (EGD) Hx of dilation and curettage [place] teeth removed Family History Mother Metabolic disease Diabetes Breast cancer Hypertension High cholesterol Psoriasis Father Hypertension High cholesterol Maternal Grandmother Pancreatic cancer Maternal Grandfather Heart disease Paternal Grandfather Alzheimer disease Paternal Grandfather Dementia Social History Household Members: Spouse and Children Housing: House Are you a primary interior plant caretaker to a significant other at home: No Do you presently have visiting nurse or other home services: No Alcohol intake: current Alcohol intake frequency: a few times a week Alcohol type: wine Patient Tobacco Use Status: Never used Tobacco e-Cigarette/Vaping Use: Never Used service: No Current occupational status: employed Cognitive needs: No Hearing needs: No Vision needs: No Review of Systems Const Reports as per HPI Musc Denies back pain, Reports arthralgias and Reports joint swelling Physical Exam Vital Signs: Last Vital Signs Temp 97.6 F 05/16/23 15:40 Pulse 87 05/16/23 15:40 BP 122/74 05/16/23 15:40 Pulse Ox 99 05/16/23 15:40 BMI result Body Mass Index 25.9 Const General: cooperative, healthy appearing and comfortable Nutritional Appearance: average body habitus Orientation/consciousness: patient oriented x3 Limitations: no limitations HEENT Head: Yes normocephalic and Yes atraumatic Mouth: Normal oral and palatal mucosa present and moist mucous membranes Resp Effort & Inspection: normal respiratory effort and able to speak in complete sentences Auscultation: clear to auscultation bilaterally Cardio Rate: regular rate Rhythm: regular rhythm Skin General skin exam: no rashes or lesions noted Neuro General: patient oriented x3 Extrem Other: Right little finger bony swelling that is rather consistent with Heberden's node, similar lesions in the left index and left middle finger PIP. Picture more consistent with Heberden's nodes Toe dactylitis has resolved Results Reviewed Results Reviewed: MRI FOOT W WO CONT [id number] SYMPTOMS,HX? DACTYLITIS DUE TO SPONDYLOARTHRITIC DISCORDER EXAMINATION: MRI OF THE RIGHT FOOT WITH AND WITHOUT CONTRAST CLINICAL INFORMATION: Dactylitis due to spondylitic disorder. Patient reports right 4th toe pain and swelling x4 weeks. No injury. No relief from prednisone. COMPARISON: Radiographs dated 02/05/2019. TECHNIQUE: Multiplanar MR imaging was obtained through the right foot on a 1.5 Ashli magnet before and after the intravenous administration of 7 mL Gadavist intravenous contrast material. FINDINGS: At the right 4th toe proximal phalanx, there is diffuse periosteal edema and hyperenhancement with surrounding soft tissue edema and enhancement. This likely corresponds in part to enthesitis at the attachment of the juan alberto. The underlying bone marrow signal is normal without significant marrow edema or enhancement. There is mild associated synovitis at the 4th MTP and PIP joints as well as surrounding capsular edema and hyperenhancement, particularly at the entheses of the PIP joint. Mild periosteal edema and enhancement are also evident at the 4th metatarsal neck and head. Enhancement and and fluid signal around the flexor tendons at the tendon sheath in this region is consistent with tenosynovitis. No additional tenosynovitis, synovitis, or dactylitis. Subcutaneous edema signal is present in the dorsal subcutaneous fat of the forefoot overlying the 2nd, 3rd, and 4th MTP joints. Intrinsic foot musculature is normal in signal intensity. Plantar fascia is unremarkable. No appreciable plantar neuromas. There is minimal edema signal within the medial hallux sesamoid which may be PAGE 1 Signed Report (CONTINUED) Name: MARIANNE ECHEVERRIA Address: [address] [place] [id number] Phone: [phone] Age: 38 Doctor: CLEMENTINE DICKERSON MD Location: MRI Exam Date: 02/17/2019 Time: 2030 [facility]# [id number] degenerative in nature. Articular cartilage at the 1st MTP joint appears relatively well preserved aside from a very small, subtle chondral fissure at the proximal phalangeal base and minimal underlying marrow edema. IMPRESSION: Dactylitis at the 4th toe proximal phalanx with mild flexor tenosynovitis as well as enthesitis and mild synovitis at the 4th toe PIP joint and 4th MTP joint. 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 Rheumatoid arthritis or an infectious dactylitis would be less common. Assessment & Plan Assessment & Plan (1) Psoriatic arthritis: Comment: PsA dx 2019 with foot dactylitis, then recurrent knee effusions. No history suggestive of uveitis or IBD Partial response to NSAIDs (ibuprofen, nabumetone) MTX started 12/05 effective Code(s): L40.50 - Arthropathic psoriasis, unspecified Plan: This is a 42-year-old female PsA who presents for follow-up. Her dactylitis resolved on methotrexate 20 mg weekly and folic acid 1 mg daily. Gets fatigued for 1 day after taking methotrexate Today patient is complaining of 1 episode of right little finger DIP pain and swelling, similar less severe episode affecting her left index finger. On exam she has findings of Heberden's nodes. However check bilateral hand x-rays to evaluate for any signs of psoriatic arthritis affecting the DIP joints Continue methotrexate 20 mg once weekly and folic acid 1 mg daily Start guaifenesin DM as a therapeutic trial for methotrexate flu Of note patient was recently found to have BI-RADS 4 on breast MRI. 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 She has an IUD Monitor safety lab (3) Immunization counseling: Code(s): Z71.85 - Encounter for immunization safety counseling Plan: Discussed ACR vaccination guidelines for adults with autoimmune rheumatic disease. I explained to patient that flu vaccine and COVID boosters would be recommended. Patient states that she is not planning to get any vaccinations done this season. I informed patient however that if she decides to change her mind, she should hold methotrexate for 2 doses after vaccination Plan I spent 26 minutes reviewing patient's chart, evaluating patient, ordering diagnostic workup, counseling patient and documenting in the chart Orders: Orders Complete Blood Count Auto Diff 3 Months Z79.631 - buttermaker continuous churn (current) use of antimetabolite agent Erythrocyte Sedimentation Rate 3 Months Z79.631 - retirement (current) use of antimetabolite agent XR hand wrist LT Today L40.50 - Arthropathic psoriasis, unspecified Comprehensive Met. Panel 3 Months Z79.63 - buttermaker continuous churn (current) use of antimetabolite agent C Reactive Protein 3 Months Z79.631 - buttermaker continuous churn (current) use of antimetabolite agent XR hand wrist RT Today L40.50 - Arthropathic psoriasis, unspecified Medications: New dextromethorphan-guaifenesin 30-600 mg Take 1 tab once weekly 8-12 hours after methotrexate 4 tabs 2RF Coding Level of Care Code Est Pt Level 4 (62512) Diagnoses Psoriatic arthritis L40.50 buttermaker continuous churn methotrexate user Z79.631 Immunization counseling Z71.85
== END 2023-05-16 16:08 | disposition home or self-care (01) ==
PROVIDERS: PCP Nurse Practitioner Family; Visit Provider Student in an Organized Health Care Education/Training Program
DX: L40.50 Arthropathic psoriasis, unspecified (principal); Z79.631 Long term (current) use of antimetabolite agent; Z71.85 Encounter for immunization safety counseling
CPT/HCPCS: 99214

== ENCOUNTER → 2023-05-16 15:38 | Outpatient (BNVA) | payer OTHER, SELFPAY | PROVIDERS: PCP Nurse Practitioner Family; Visit Provider Student in an Organized Health Care Education/Training Program ==

== ENCOUNTER 2023-07-07 08:36 | Outpatient (REF) | payer OTHER, SELFPAY ==
[2023-07-07 08:44] LABS: MANUAL DIFF FLAG NO
[2023-07-07 09:15] LABS: Basophils Absolute Auto 0.1 X10*3/uL (0.0-0.2); Basophils Percent Auto 0.8 % (0-2); Eosinophils Absolute Auto 0.1 X10*3/uL (0.0-0.4); Eosinophils Percent Auto 1.8 % (0-4); Hematocrit 33.7 % (37.0-47.0); Hemoglobin 10.6 g/dl (12.0-16.0); Imm Gran Abs Auto 0.05 X10*3/uL (0.00-0.03); Imm Gran Pct Auto 0.6 % (0.0-0.4); Lymphocytes Percent Auto 24.9 % (20-40); Mean Corpuscular HGB Conc 31.5 g/dl (31.0-35.0); Mean Corpuscular Hemoglobin 25.6 pg (27.0-33.0); Mean Corpuscular Volume 81.4 fL (80.0-98.0); Mean Platelet Volume 8.9 fL (9.4-12.3); Monocytes Absolute Auto 0.7 X10*3/uL (0.1-1.2); Monocytes Percent Auto 8.9 % (2-11); Platelet Count 379 X10*3/uL (160-400); Red Blood Count 4.14 X10*6/uL (4.20-5.50); Red Cell Distribution Width 17.1 % (11.0-16.0); White Blood Count 7.9 X10*3/uL (4.8-10.8)
[2023-07-07 09:48] LABS: Alanine Aminotransferase 19 U/L (0-31); Albumin Level 4.1 g/dL (3.5-5.0); Alkaline Phosphatase 73 U/L (39-117); Anion Gap 12 (12-20); Aspartate Amino Transferase 16 U/L (5-31); Bilirubin Total 0.5 mg/dL (0.0-1.0); Blood Urea Nitrogen 13 mg/dL (9-16); C Reactive Protein 0.28 mg/dL (< or = 0.50); Calcium 9.1 mg/dL (8.4-10.2); Carbon Dioxide 26 mmol/L (22-29); Chloride 103 mmol/L (96-108); Estimated Glomerular Filt Rate > 60; Glucose Random 117 mg/dL (60-115); Potassium 3.9 mmol/L (3.3-5.1); Sodium 137 mmol/L (135-145); Total Protein 7.7 g/dL (6.5-8.0)
[2023-07-07 10:05] LABS: Erythrocyte Sedimentation Rate 13 MM/HR (0-20)
== END 2023-07-07 08:37 | disposition home or self-care (01) ==
LOC: HO.LAB 08:36
PROVIDERS: Visit Provider Student in an Organized Health Care Education/Training Program
DX: L40.50 Arthropathic psoriasis, unspecified (principal); Z79.631 Long term (current) use of antimetabolite agent
CPT/HCPCS: 36415; 73110; 73130; 80053; 85025; 85652; 86140

== ENCOUNTER 2023-08-23 15:41 | Outpatient (REF) | payer OTHER, SELFPAY ==
--- NOTE | ~2023-08-23 | MM_ITS ---
EXAMINATION: MM SCREENING DIGITAL BREAST TOMOSYNTHESIS, BILATERAL CLINICAL INFORMATION: Screening. Asymptomatic. COMPARISON: Mammography: This study is compared with prior exams dating back to 2019. TECHNIQUE: Digital breast tomosynthesis is performed in both the craniocaudal and mediolateral oblique views along with computer-aided detection (CAD). Synthesized 2D images are generated from the tomosynthesis. FINDINGS: There are scattered areas of fibroglandular density (ACR BI-RADS breast composition Category b). There are no significant masses, abnormal calcifications, or other abnormalities. There is a biopsy tissue marker in the upper outer quadrant of the right breast. There are 3 biopsy tissue markers in the left breast, 2 of them lie in the medial aspect of the left breast. MM/MM tomosynthesis screening BI IMPRESSION: No mammographic evidence of malignancy. ASSESSMENT: BI-RADS BI-RADS 2 - Benign Findings RECOMMENDATION: Routine annual mammography screening. 1 year F/U This examination should not preclude the clinical evaluation of a suspicious palpable abnormality. This patient's information was entered into a reminder system with a target due date for their next mammogram.
== END 2023-08-23 15:42 | disposition home or self-care (01) ==
LOC: HO.MAMMO 15:41
PROVIDERS: PCP Nurse Practitioner Family; Visit Provider Nurse Practitioner Family
DX: Z12.31 Encounter for screening mammogram for malignant neoplasm of breast (principal)
CPT/HCPCS: 77063; 77067

== ENCOUNTER → 2023-08-23 15:45 | Outpatient (BNV) | payer OTHER, SELFPAY | PROVIDERS: PCP Nurse Practitioner Family; Visit Provider Radiology Diagnostic Radiology | DX: Z12.31 Encounter for screening mammogram for malignant neoplasm of breast (principal) | CPT/HCPCS: 77063; 77067 ==

== ENCOUNTER 2023-09-10 15:49 | Outpatient (AMB) | payer OTHER, SELFPAY ==
[2023-09-10 15:50] VITALS: BP 116/72; PULSE 92; TEMP 36.4; O2SAT 99; BMI 26.5
--- NOTE | 2023-09-10 15:50 | MHC.OFFVIS ---
Intake Vital Signs 09/10/23 15:50 Height 5 ft 7 in Weight 169 lb 1.513 oz BMI 26.5 BP 116/72 Blood Pressure Location Rt brachial Position Sitting Pulse 92 Pulse Source Pulse Oximeter Temp 97.6 F Temp Source Skin Pulse Oximetry (%) 99 Oxygen Delivery Method Room Air Intake Visit Reasons: PsA Intake Note: Patient last seen 05/16/23 presents today for follow up and test results. 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 Required: No Accompanied by: Self / Same As Patient Allergies Sulfa (Sulfonamide Antibiotics) [SULFA (SULFONAMIDE ANTIBIOTICS)] Allergy (Unknown, Verified 09/10/23 15:55) UNKNOWN, hives Medication List - Last Reconciled 09/10/23 by Wil Peñaloza MD dextromethorphan-guaifenesin 30-600 mg Take 1 tab once weekly 8-12 hours after methotrexate famotidine 40 mg PO BEDTIME folic acid 1 mg PO DAILY ibuprofen 800 mg PO TID PRN levocetirizine (Xyzal) 5 mg PO QPM methotrexate sodium 20 mg (8 x 2.5 mg) PO QWEEK pantoprazole (Protonix) 40 mg PO DAILY 90 days psyllium husk (Daily Fiber) 0.8 grams PO DAILY simethicone (Gas Relief (simethicone)) 180 mg PO BID HPI HPI Comments History of Present Illness Details 42-year-old female with psoriatic arthritis returns for follow-up. She is on methotrexate 20 mg weekly and folic acid 1 mg daily. She tried taking dextromethorphan with guaifenesin day after she takes methotrexate but it did not help the fatigue that she gets the next day. She is doing well overall. No swollen or tender joints. She had a breast biopsy 2 months ago and it was negative for malignancy. Of note patient was evaluated by Dr. Dickerson in 2019 at that time she had similar pain and swelling of her right 4th toe. She was started on ibuprofen 800 mg 3 to 4 times a day for 1-2 months with resolution of the pain and swelling. She stated that previously she has had multiple knee joint pain swelling, she has had multiple arthrocentesis and steroid injections. She also stated that in 2014 she was diagnosed with pseudotumor cerebri and she was advised to lose weight. She lost 10-20 lb of weight with improvement of her headaches and blurry vision. Three months ago she started having left 2nd toe pain and swelling which is quite similar to the swelling she had in 2019. She denies any back pain. No other joint complaints. Denies any skin rashes. Her mother has psoriasis. There is no history suggestive of uveitis or IBD. Patient stated that in 2019 she was referred to a nozzle worker in [place] and methotrexate was recommended but patient did not start it. [facility] Medical History Pseudotumor cerebri Monoclonal gammopathies Surgical History History of esophagogastroduodenoscopy (EGD) Hx of dilation and curettage [place] teeth removed Family History Mother Metabolic disease Diabetes Breast cancer Hypertension High cholesterol Psoriasis Father Hypertension High cholesterol Maternal Grandmother Pancreatic cancer Maternal Grandfather Heart disease Paternal Grandfather Alzheimer disease Paternal Grandfather Dementia Social History Household Members: Spouse and Children Housing: House Are you a primary early breastfeeding care specialist to a significant other at home: No Do you presently have visiting nurse or other home services: No Alcohol intake: current Alcohol intake frequency: a few times a month Alcohol type: wine Patient Tobacco Use Status: Never used Tobacco e-Cigarette/Vaping Use: Never Used service: No Current occupational status: employed Cognitive needs: No Hearing needs: No Vision needs: No Review of Systems Musc Denies arthralgias and Denies joint swelling Physical Exam Vital Signs: Last Vital Signs Temp 97.6 F 09/10/23 15:50 Pulse 92 09/10/23 15:50 BP 116/72 09/10/23 15:50 Pulse Ox 99 09/10/23 15:50 Oxygen Delivery Method Room Air 09/10/23 15:50 BMI result Body Mass Index 26.5 Const General: cooperative, healthy appearing and comfortable Nutritional Appearance: average body habitus Orientation/consciousness: patient oriented x3 Limitations: no limitations HEENT Head: Yes normocephalic and Yes atraumatic Mouth: Normal oral and palatal mucosa present Resp Effort & Inspection: normal respiratory effort and able to speak in complete sentences Cardio Rate: regular rate Rhythm: regular rhythm Skin General skin exam: no rashes or lesions noted Neuro General: patient oriented x3 Extrem Other: Osteoarthritic changes of both hands with prominent Heberden's nodes, No dactylitis Results Reviewed Results Reviewed: MRI FOOT W WO CONT 43750PC SYMPTOMS,HX? DACTYLITIS DUE TO SPONDYLOARTHRITIC DISCORDER EXAMINATION: MRI OF THE RIGHT FOOT WITH AND WITHOUT CONTRAST CLINICAL INFORMATION: Dactylitis due to spondylitic disorder. Patient reports right 4th toe pain and swelling x4 weeks. No injury. No relief from prednisone. COMPARISON: Radiographs dated 02/05/2019. TECHNIQUE: Multiplanar MR imaging was obtained through the right foot on a 1.5 Ashli magnet before and after the intravenous administration of 7 mL Gadavist intravenous contrast material. FINDINGS: At the right 4th toe proximal phalanx, there is diffuse periosteal edema and hyperenhancement with surrounding soft tissue edema and enhancement. This likely corresponds in part to enthesitis at the attachment of the juan alberto. The underlying bone marrow signal is normal without significant marrow edema or enhancement. There is mild associated synovitis at the 4th MTP and PIP joints as well as surrounding capsular edema and hyperenhancement, particularly at the entheses of the PIP joint. Mild periosteal edema and enhancement are also evident at the 4th metatarsal neck and head. Enhancement and and fluid signal around the flexor tendons at the tendon sheath in this region is consistent with tenosynovitis. No additional tenosynovitis, synovitis, or dactylitis. Subcutaneous edema signal is present in the dorsal subcutaneous fat of the forefoot overlying the 2nd, 3rd, and 4th MTP joints. Intrinsic foot musculature is normal in signal intensity. Plantar fascia is unremarkable. No appreciable plantar neuromas. There is minimal edema signal within the medial hallux sesamoid which may be PAGE 1 Signed Report (CONTINUED) Name: MARIANNE ECHEVERRIA Address: [address] [place] [id number] Phone: [phone] Age: 38 Doctor: CLEMENTINE DICKERSON MD Location: MRI Exam Date: 02/17/2019 Time: 2030 degenerative in nature. Articular cartilage at the 1st MTP joint appears relatively well preserved aside from a very small, subtle chondral fissure at the proximal phalangeal base and minimal underlying marrow edema. IMPRESSION: Dactylitis at the 4th toe proximal phalanx with mild flexor tenosynovitis as well as enthesitis and mild synovitis at the 4th toe PIP joint and 4th MTP joint. 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 Rheumatoid arthritis or an infectious dactylitis would be less common. Assessment & Plan Assessment & Plan (1) Psoriatic arthritis: Comment: PsA dx 2019 with foot dactylitis, then recurrent knee effusions. No history suggestive of uveitis or IBD Partial response to NSAIDs (ibuprofen, nabumetone) MTX 20 mg started 12/05 effective reduced to 15 mg 08/2023 Code(s): L40.50 - Arthropathic psoriasis, unspecified Plan: This is a 42-year-old female PsA who presents for follow-up. She is in remission on methotrexate 20 mg weekly and folic acid 1 mg daily. Continues to have some fatigue the day after she takes methotrexate. Did not improve with dextromethorphan with guaifenesin Reduce methotrexate to 15 mg weekly Continue folic acid 1 mg daily Labs in the next 1-2 months Follow-up in 4 months (2) halfway methotrexate user: Code(s): Z79.631 - moth exterminator (current) use of antimetabolite agent Plan: Patient is not planning to get any time soon. She has an IUD Monitor safety labs Plan I spent 26 minutes reviewing patient's chart, evaluating patient, ordering diagnostic workup, counseling patient and documenting in the chart Orders: Orders Erythrocyte Sedimentation Rate 6 Weeks L40.50 - Arthropathic psoriasis, unspecified, Z79.631 - moth exterminator (current) use of antimetabolite agent Complete Blood Count Auto Diff 6 Weeks L40.50 - Arthropathic psoriasis, unspecified, Z79.631 - moth exterminator (current) use of antimetabolite agent Comprehensive Met. Panel 6 Weeks L40.50 - Arthropathic psoriasis, unspecified, Z79.631 - moth exterminator (current) use of antimetabolite agent C Reactive Protein 6 Weeks L40.50 - Arthropathic psoriasis, unspecified, Z79.631 - halfway (current) use of antimetabolite agent Coding Level of Care Code Est Pt Level 4 (27788) Diagnoses Psoriatic arthritis L40.50 halfway methotrexate user Z79.631
== END 2023-09-10 16:12 | disposition home or self-care (01) ==
PROVIDERS: PCP Nurse Practitioner Family; Visit Provider Student in an Organized Health Care Education/Training Program
DX: L40.50 Arthropathic psoriasis, unspecified (principal); Z79.631 Long term (current) use of antimetabolite agent
CPT/HCPCS: 99214

== ENCOUNTER → 2023-09-10 15:49 | Outpatient (BNVA) | payer OTHER, SELFPAY | PROVIDERS: PCP Nurse Practitioner Family; Visit Provider Student in an Organized Health Care Education/Training Program ==

== ENCOUNTER 2023-09-28 15:53 | Outpatient (AMB) | payer OTHER, SELFPAY ==
--- NOTE | 2023-09-28 15:54 | MHC.OFFVIS ---
Intake Vital Signs 09/28/23 15:55 Height 5 ft 7 in Weight 170 lb BMI 26.6 BP 133/79 Blood Pressure Location Lt brachial Position Sitting Pulse 74 Intake Visit Reasons: 3 month follow up Abdominal bloating Intake Note: Saima returns to office today in 3 months follow up of abdominal bloating. CC: She states she continues having the same s Machine Splitter Required: No Allergies Sulfa (Sulfonamide Antibiotics) [SULFA (SULFONAMIDE ANTIBIOTICS)] Allergy (Unknown, Verified 09/28/23 16:01) UNKNOWN, hives HPI 3 month follow up Abdominal bloating HPI Details Assessment & Plan (1) Malrotation colon: Comment: discovered on CT 2018 Code(s): Q43.3 - Congenital malformations of intestinal fixation Plan: She has stopped taking senna Dr Nash told me it would give me it would give me floppy colon. I disagrees with this, as the latest research does not bear this out. She will be seeing surgery and pain mgmt.....She does not feel ready for surgery. She does take a fiber pill; increase to bid. ROV 3 mos. (2) Chronic idiopathic constipation: Code(s): K59.04 - Chronic idiopathic constipation (3) GERD (gastroesophageal reflux disease): Code(s): K21.9 - Gastro-esophageal reflux disease without esophagitis TODAY'S VISIT Her current regimen consists of famotidine, psyllium husk, and simethicone. She has not had to use the medications recently and she is uncertain why. It is possible that she has a wandering cecum that causes her more trouble when wonders into different positions. Obviously this is good so we will just wait and watch. Return office visit in 6 months [facility] Medical History Immunization counseling Abnormal finding on CT scan Acute diarrhea Physical exam Epigastric pain determined by examination Pre-op examination Pseudotumor cerebri Monoclonal gammopathies Surgical History History of esophagogastroduodenoscopy (EGD) Hx of dilation and curettage [place] teeth removed Family History Mother Metabolic disease Diabetes Breast cancer Hypertension High cholesterol Psoriasis Father Hypertension High cholesterol Maternal Grandmother Pancreatic cancer Maternal Grandfather Heart disease Paternal Grandfather Alzheimer disease Paternal Grandfather Dementia Social History Household Members: Spouse and Children Housing: House Are you a primary animal care supervisor to a significant other at home: No Do you presently have visiting nurse or other home services: No Alcohol intake: current Alcohol intake frequency: a few times a month Alcohol type: wine Patient Tobacco Use Status: Never used Tobacco e-Cigarette/Vaping Use: Never Used service: No Current occupational status: employed Cognitive needs: No Hearing needs: No Vision needs: No Review of Systems Const Denies fatigue, Denies fever(s), Denies night sweats, Denies poor appetite and Denies weight loss ENT Reports Normal hearing present, Denies dental pain, Denies dysphagia, Denies hearing loss, Denies mouth pain, Denies odynophagia, Denies throat swelling, Denies tongue swelling and Reports other (Dentition adequate) Card Reports no additional complaints Resp Reports no additional complaints GI Details: Denies abdominal pain, Denies melena, Reports bloating, Denies hematochezia, Reports constipation, Denies GI cramping, Denies dysphagia, Denies excessive flatus, Denies early satiety, Denies heartburn, Denies diarrhea, Denies nausea, Denies odynophagia, Denies vomiting and Denies hematemesis Skin/Breast Denies pruritus, Denies lesions, Denies rash and Denies jaundice Neuro Reports Normal hearing present and Denies Abnormal speech present Endo Denies fatigue Aller/Immun Denies throat swelling and Denies tongue swelling Physical Exam Vital Signs: Last Vital Signs Pulse 74 09/28/23 15:55 BP 133/79 09/28/23 15:55 BMI result Body Mass Index 26.6 Const General: cooperative, no acute distress, well developed and well groomed Nutritional Appearance: average body habitus and well nourished Orientation/consciousness: oriented to person, oriented to place and oriented to time Limitations: No language barrier HEENT Head: Yes normocephalic and Yes atraumatic Eyes General: appearance normal, both eyes and all related structures Pupils: Equal, round and reactive pupils present Neck Neck: Yes normal visual inspection and Yes no lymphadenopathy Thyroid: Thyroid normal Resp Effort & Inspection: normal respiratory effort and able to speak in complete sentences Auscultation: clear to auscultation bilaterally Cardio Rate: regular rate Rhythm: regular rhythm Heart sounds: Normal, physiologic split S2 sound present Peripheral pulses: radial pulses present and posterior tibial pulses present GI Inspection: No distended and No Abdominal panniculus present Palpation (GI): Soft to palpation, nontender, no guarding, not rigid and No hepatosplenomegaly present Percussion: Yes normal to percussion Auscultation: normal bowel sounds Rectal Exam - Female: deferred Skin General skin exam: no rashes or lesions noted, turgor normal, skin not dry, no jaundice, No spider nevi and no striae Rashes: no rashes Nails: normal Neuro General: oriented to person, oriented to place and oriented to time Cranial nerves: Yes Equal, round and reactive pupils present and Yes Normal hearing present Speech: No Abnormal speech present Extrem General: Yes normal to inspection, No clubbing, No cyanosis and No edema Psych Appearance: grossly normal and well kempt Mental Status: mental status grossly normal Speech and movement: Normal speech and movement present Affect: normal affect Attitude: cooperative Thought process: Normal thought process present and not confabulating Thought content: Normal thought content present Insight: Good insight present (Psych) Judgement: Good judgement present (Psych) Assessment & Plan Assessment & Plan (1) GERD (gastroesophageal reflux disease): Code(s): K21.9 - Gastro-esophageal reflux disease without esophagitis (2) Chronic idiopathic constipation: Code(s): K59.04 - Chronic idiopathic constipation (3) Abdominal bloating: Code(s): R14.0 - Abdominal distension (gaseous) (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 She has not had to use the medications recently and she is uncertain why. It is possible that she has a wandering cecum that causes her more trouble when wonders into different positions. Obviously this is good so we will just wait and watch. Return office visit in 6 months Coding Level of Care Code Est Pt Level 3 (10819) Diagnoses GERD (gastroesophageal reflux disease) K21.9 Chronic idiopathic constipation K59.04 Abdominal bloating R14.0 Mobile cecum Q43.3 IBS (irritable bowel syndrome) K58.9
[2023-09-28 15:55] VITALS: BP 133/79; PULSE 74; BMI 26.6
== END 2023-09-28 16:16 | disposition home or self-care (01) ==
PROVIDERS: PCP Nurse Practitioner Family; Visit Provider Nurse Practitioner
DX: K21.9 Gastro-esophageal reflux disease without esophagitis (principal); K59.04 Chronic idiopathic constipation; R14.0 Abdominal distension (gaseous); Q43.3 Congenital malformations of intestinal fixation; K58.9 Irritable bowel syndrome, unspecified
CPT/HCPCS: 99213

== ENCOUNTER → 2023-09-28 15:53 | Outpatient (BNVA) | payer OTHER, SELFPAY | PROVIDERS: PCP Nurse Practitioner Family; Visit Provider Nurse Practitioner ==

== ENCOUNTER 2023-10-17 14:08 | Outpatient (REF) | payer OTHER, SELFPAY ==
[2023-10-17 16:46] LABS: MANUAL DIFF FLAG NO
[2023-10-17 17:37] LABS: Basophils Absolute Auto 0.1 X10*3/uL (0.0-0.2); Basophils Percent Auto 0.9 % (0-2); Eosinophils Absolute Auto 0.2 X10*3/uL (0.0-0.4); Eosinophils Percent Auto 2.1 % (0-4); Hematocrit 36.4 % (37.0-47.0); Hemoglobin 11.5 g/dl (12.0-16.0); Imm Gran Abs Auto 0.02 X10*3/uL (0.00-0.03); Imm Gran Pct Auto 0.2 % (0.0-0.4); Lymphocytes Absolute Auto 2.5 X10*3/uL (1.2-4.9); Mean Corpuscular HGB Conc 31.6 g/dl (31.0-35.0); Mean Corpuscular Hemoglobin 25.6 pg (27.0-33.0); Mean Corpuscular Volume 81.1 fL (80.0-98.0); Mean Platelet Volume 8.9 fL (9.4-12.3); Monocytes Absolute Auto 0.8 X10*3/uL (0.1-1.2); Monocytes Percent Auto 9.5 % (2-11); Neutrophils Absolute Auto 4.5 x10*3/uL (2.0-8.3); Neutrophils Percent Auto 56.3 % (45-73); Platelet Count 410 X10*3/uL (160-400); Red Blood Count 4.49 X10*6/uL (4.20-5.50); Red Cell Distribution Width 16.4 % (11.0-16.0); White Blood Count 8.1 X10*3/uL (4.8-10.8)
[2023-10-17 18:13] LABS: Alanine Aminotransferase 28 U/L (0-31); Albumin Level 4.6 g/dL (3.5-5.0); Alkaline Phosphatase 80 U/L (39-117); Anion Gap 12 (12-20); Aspartate Amino Transferase 22 U/L (5-31); Bilirubin Total 0.3 mg/dL (0.0-1.0); Blood Urea Nitrogen 15 mg/dL (9-16); C Reactive Protein 0.52 mg/dL (< or = 0.50); Calcium 9.9 mg/dL (8.4-10.2); Carbon Dioxide 27 mmol/L (22-29); Chloride 103 mmol/L (96-108); Estimated Glomerular Filt Rate > 60; Glucose Random 89 mg/dL (60-115); Sodium 138 mmol/L (135-145); Total Protein 8.8 g/dL (6.5-8.0)
[2023-10-17 18:16] LABS: Erythrocyte Sedimentation Rate 21 MM/HR (0-20)
== END 2023-10-17 14:09 | disposition home or self-care (01) ==
LOC: HO.LAB 14:08
PROVIDERS: PCP Nurse Practitioner Family; Visit Provider Student in an Organized Health Care Education/Training Program
DX: L40.50 Arthropathic psoriasis, unspecified (principal); Z79.631 Long term (current) use of antimetabolite agent
CPT/HCPCS: 36415; 80053; 85025; 85652; 86140

== ENCOUNTER 2024-02-18 12:04 | Outpatient (REF) | payer OTHER, SELFPAY | END 2024-02-18 12:05 | disposition home or self-care (01) | LOC: HO.LAB 12:04 | PROVIDERS: PCP Nurse Practitioner Family; Visit Provider Student in an Organized Health Care Education/Training Program | DX: Z13.89 Encounter for screening for other disorder (principal) ==

== ENCOUNTER 2024-02-19 12:54 | Outpatient (REF) | payer OTHER, SELFPAY ==
[2024-02-19 13:04] LABS: MANUAL DIFF FLAG NO
[2024-02-19 13:54] LABS: Basophils Absolute Auto 0.1 X10*3/uL (0.0-0.2); Basophils Percent Auto 0.7 % (0-2); Eosinophils Absolute Auto 0.1 X10*3/uL (0.0-0.4); Eosinophils Percent Auto 1.6 % (0-4); Hematocrit 36.6 % (37.0-47.0); Hemoglobin 11.6 g/dl (12.0-16.0); Imm Gran Abs Auto 0.03 X10*3/uL (0.00-0.03); Imm Gran Pct Auto 0.4 % (0.0-0.4); Lymphocytes Absolute Auto 2.1 X10*3/uL (1.2-4.9); Lymphocytes Percent Auto 31.3 % (20-40); Mean Corpuscular HGB Conc 31.7 g/dl (31.0-35.0); Mean Corpuscular Volume 81.9 fL (80.0-98.0); Monocytes Absolute Auto 0.5 X10*3/uL (0.1-1.2); Monocytes Percent Auto 7.6 % (2-11); Neutrophils Absolute Auto 3.9 x10*3/uL (2.0-8.3); Neutrophils Percent Auto 58.4 % (45-73); Platelet Count 427 X10*3/uL (160-400); Red Blood Count 4.47 X10*6/uL (4.20-5.50); Red Cell Distribution Width 16.2 % (11.0-16.0); White Blood Count 6.7 X10*3/uL (4.8-10.8)
[2024-02-19 14:19] LABS: Alanine Aminotransferase 15 U/L (0-31); Albumin Level 4.4 g/dL (3.5-5.0); Alkaline Phosphatase 80 U/L (39-117); Anion Gap 12 (12-20); Aspartate Amino Transferase 18 U/L (5-31); Bilirubin Total 0.4 mg/dL (0.0-1.0); Blood Urea Nitrogen 9 mg/dL (9-16); C Reactive Protein 0.22 mg/dL (< or = 0.50); Calcium 9.4 mg/dL (8.4-10.2); Carbon Dioxide 30 mmol/L (22-29); Chloride 102 mmol/L (96-108); Estimated Glomerular Filt Rate > 60; Glucose Random 135 mg/dL (60-115); Potassium 3.8 mmol/L (3.3-5.1); Sodium 140 mmol/L (135-145); Total Protein 8.1 g/dL (6.5-8.0)
[2024-02-19 14:46] LABS: Erythrocyte Sedimentation Rate 10 MM/HR (0-20)
== END 2024-02-19 12:55 | disposition home or self-care (01) ==
LOC: HO.LAB 12:54
PROVIDERS: PCP Nurse Practitioner Family; Visit Provider Student in an Organized Health Care Education/Training Program
DX: Z79.631 Long term (current) use of antimetabolite agent (principal)
CPT/HCPCS: 36415; 80053; 85025; 85652; 86140

== ENCOUNTER 2024-02-25 16:02 | Outpatient (AMB) | payer OTHER, SELFPAY ==
--- NOTE | 2024-02-25 16:04 | MHC.OFFVIS ---
Vital Signs 02/25/24 16:07 Height 5 ft 7 in Weight 166 lb 0.129 oz BMI 26.0 BP 132/80 Blood Pressure Location Rt brachial Position Sitting Pulse 83 Pulse Source Pulse Oximeter Pulse Oximetry (%) 98 Oxygen Delivery Method Room Air Intake Visit Reasons: PSA Intake Note: Patient presents for PsA. Allergies Sulfa (Sulfonamide Antibiotics) [SULFA (SULFONAMIDE ANTIBIOTICS)] Allergy (Unknown, Verified 02/25/24 16:08) UNKNOWN, hives Medication List - Last Reconciled 02/25/24 by Wil Peñaloza MD famotidine 40 mg PO BEDTIME folic acid 1 mg PO DAILY ibuprofen 800 mg PO TID PRN levocetirizine (Xyzal) 5 mg PO QPM methotrexate sodium 15 mg (6 x 2.5 mg) PO QWEEK pantoprazole 40 mg PO DAILY psyllium husk (Daily Fiber) 0.8 grams PO DAILY simethicone (Gas Relief (simethicone)) 180 mg PO BID HPI Comments Details: 43-year-old female with psoriatic arthritis returns for follow-up. She is on methotrexate 15 mg weekly and folic acid 1 mg daily. States that she is doing quite well overall. Has not had any active arthritis last visit. She states that she feels fatigued throughout the week, she wonders whether it is related to the methotrexate, her fatigue is not necessarily worse after she takes methotrexate. She also stated that she had some fatigue even before she started methotrexate. States however that the day after she takes methotrexate she feels that she is not as sharp as she would like to be Of note patient was evaluated by Dr. Dickerson in 2019 at that time she had similar pain and swelling of her right 4th toe. She was started on ibuprofen 800 mg 3 to 4 times a day for 1-2 months with resolution of the pain and swelling. She stated that previously she has had multiple knee joint pain swelling, she has had multiple arthrocentesis and steroid injections. She also stated that in 2014 she was diagnosed with pseudotumor cerebri and she was advised to lose weight. She lost 10-20 lb of weight with improvement of her headaches and blurry vision. Three months ago she started having left 2nd toe pain and swelling which is quite similar to the swelling she had in 2019. She denies any back pain. No other joint complaints. Denies any skin rashes. Her mother has psoriasis. There is no history suggestive of uveitis or IBD. Patient stated that in 2019 she was referred to a admissions supervisor in [place] and methotrexate was recommended but patient did not start it. [facility]LY [facility], [facility] Medical History Immunization counseling Abnormal finding on CT scan Acute diarrhea Physical exam Epigastric pain determined by examination Pre-op examination Pseudotumor cerebri Monoclonal gammopathies Surgical History History of esophagogastroduodenoscopy (EGD) Hx of dilation and curettage [place] teeth removed Family History Mother Metabolic disease Diabetes Breast cancer Hypertension High cholesterol Psoriasis Father Hypertension High cholesterol Maternal Grandmother Pancreatic cancer Maternal Grandfather Heart disease Paternal Grandfather Alzheimer disease Paternal Grandfather Dementia Social History Household Members: Spouse and Children Housing: House Are you a primary multi care technician to a significant other at home: No Do you presently have visiting nurse or other home services: No Alcohol intake: current Alcohol intake frequency: a few times a month Alcohol type: wine Patient Tobacco Use Status: Never used Tobacco e-Cigarette/Vaping Use: Never Used service: No Current occupational status: employed Cognitive needs: No Hearing needs: No Vision needs: No Female Reproductive History Menstrual Total pregnancies: 3 Number of Living Children: 2 Ab spontaneous: 1 Review of Systems Musc Denies arthralgias and Denies joint swelling Physical Exam Vital Signs: Last Vital Signs Pulse 83 02/25/24 16:07 BP 132/80 02/25/24 16:07 Pulse Ox 98 02/25/24 16:07 Oxygen Delivery Method Room Air 02/25/24 16:07 BMI result Body Mass Index 26.0 Const General: cooperative, healthy appearing and comfortable Nutritional Appearance: average body habitus Orientation/consciousness: patient oriented x3 Limitations: no limitations HEENT Head: Yes normocephalic and Yes atraumatic Mouth: Normal oral and palatal mucosa present Resp Effort & Inspection: normal respiratory effort and able to speak in complete sentences Cardio Rate: regular rate Rhythm: regular rhythm Skin General skin exam: no rashes or lesions noted Neuro General: patient oriented x3 Extrem Other: Osteoarthritic changes of both hands with prominent Heberden's nodes, No dactylitis Results Reviewed Results Reviewed: MRI FOOT W WO CONT [id number] SYMPTOMS,HX? DACTYLITIS DUE TO SPONDYLOARTHRITIC DISCORDER EXAMINATION: MRI OF THE RIGHT FOOT WITH AND WITHOUT CONTRAST CLINICAL INFORMATION: Dactylitis due to spondylitic disorder. Patient reports right 4th toe pain and swelling x4 weeks. No injury. No relief from prednisone. COMPARISON: Radiographs dated 02/05/2019. TECHNIQUE: Multiplanar MR imaging was obtained through the right foot on a 1.5 Ashli magnet before and after the intravenous administration of 7 mL Gadavist intravenous contrast material. FINDINGS: At the right 4th toe proximal phalanx, there is diffuse periosteal edema and hyperenhancement with surrounding soft tissue edema and enhancement. This likely corresponds in part to enthesitis at the attachment of the juan alberto. The underlying bone marrow signal is normal without significant marrow edema or enhancement. There is mild associated synovitis at the 4th MTP and PIP joints as well as surrounding capsular edema and hyperenhancement, particularly at the entheses of the PIP joint. Mild periosteal edema and enhancement are also evident at the 4th metatarsal neck and head. Enhancement and and fluid signal around the flexor tendons at the tendon sheath in this region is consistent with tenosynovitis. No additional tenosynovitis, synovitis, or dactylitis. Subcutaneous edema signal is present in the dorsal subcutaneous fat of the forefoot overlying the 2nd, 3rd, and 4th MTP joints. Intrinsic foot musculature is normal in signal intensity. Plantar fascia is unremarkable. No appreciable plantar neuromas. There is minimal edema signal within the medial hallux sesamoid which may be PAGE 1 Signed Report (CONTINUED) Name: MARIANNE ECHEVERRIA Address: [address] [place] [id number] Phone: [phone] : 1980 Age: 38 Doctor: CLEMENTINE DICKERSON MD Location: MRI Exam Date: 02/17/2019 Time: 2030 degenerative in nature. Articular cartilage at the 1st MTP joint appears relatively well preserved aside from a very small, subtle chondral fissure at the proximal phalangeal base and minimal underlying marrow edema. IMPRESSION: Dactylitis at the 4th toe proximal phalanx with mild flexor tenosynovitis as well as enthesitis and mild synovitis at the 4th toe PIP joint and 4th MTP joint. 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 Rheumatoid arthritis or an infectious dactylitis would be less common. Assessment & Plan Assessment & Plan (1) Psoriatic arthritis: Comment: PsA dx 2019 with foot dactylitis, then recurrent knee effusions. No history suggestive of uveitis or IBD Partial response to NSAIDs (ibuprofen, nabumetone) MTX 20 mg started 12/05 effective reduced to 15 mg 08/2023 Code(s): L40.50 - Arthropathic psoriasis, unspecified Category: Medical Plan: This is a 42-year-old female PsA who presents for follow-up. She is in remission on methotrexate 15 mg weekly and folic acid 1 mg daily. She continues to have fatigue throughout the week, she also states that she had this fatigue even before she started methotrexate. Think the fatigue is not likely related to methotrexate it is not particularly worse the day after she takes it. She does feel however that she is not as sharp today after she takes methotrexate. 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
[2024-02-25 16:07] VITALS: BP 132/80; PULSE 83; O2SAT 98; BMI 26.0
== END 2024-02-25 16:27 | disposition home or self-care (01) ==
PROVIDERS: PCP Nurse Practitioner Family; Visit Provider Student in an Organized Health Care Education/Training Program
DX: L40.50 Arthropathic psoriasis, unspecified (principal); Z79.631 Long term (current) use of antimetabolite agent
CPT/HCPCS: 99214

== ENCOUNTER → 2024-02-25 16:02 | Outpatient (BNVA) | payer OTHER, SELFPAY | PROVIDERS: PCP Nurse Practitioner Family; Visit Provider Student in an Organized Health Care Education/Training Program ==

== ENCOUNTER 2024-04-25 15:28 | Outpatient (AMB) | payer OTHER, SELFPAY ==
[2024-04-25 15:30] VITALS: BP 146/88; PULSE 78; BMI 26.7
--- NOTE | 2024-04-25 15:30 | A.OFFVIS_ITS ---
Vital Signs 04/25/24 15:30 Height 5 ft 7 in Weight 170 lb 10.205 oz BMI 26.7 BP 146/88 H Blood Pressure Location Lt brachial Position Sitting Pulse 78 Intake Visit Reasons: Follow up IBS Intake Note: Saima presents to in 6 months follow up of IBS. CC: Patient reports feeling like a band on her upper abdomen on and off. She states that her BMs are very hard. 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 She has not had to use the medications recently and she is uncertain why. It is possible that she has a wandering cecum that causes her more trouble when wonders into different positions. Obviously this is good so we will just wait and watch. Return office visit in 6 months TODAYS VISIT Her current regimen consists of famotidine, psyllium husk. She is being monitored for her MGUS and so far she has had some remission of sx. She is not so bloated, and is no longer taking the simethicone. she will have an occasional tight feeling across the upper abdomen but then it will go away. ROV 6 mos. [facility]MERLY [facility] Medical History Immunization counseling Abnormal finding on CT scan Acute diarrhea Physical exam Epigastric pain determined by examination Pre-op examination Pseudotumor cerebri Monoclonal gammopathies Surgical History History of esophagogastroduodenoscopy (EGD) Hx of dilation and curettage [place] teeth removed Family History Mother Metabolic disease Diabetes Breast cancer Hypertension High cholesterol Psoriasis Father Hypertension High cholesterol Maternal Grandmother Pancreatic cancer Maternal Grandfather Heart disease Paternal Grandfather Alzheimer disease Paternal Grandfather Dementia Social History Household Members: Spouse and Children Housing: House Are you a primary customer care manager to a significant other at home: No Do you presently have visiting nurse or other home services: No Alcohol intake: current Alcohol intake frequency: a few times a month Alcohol type: wine Patient Tobacco Use Status: Never used Tobacco e-Cigarette/Vaping Use: Never Used service: No Current occupational status: employed Cognitive needs: No Hearing needs: No Vision needs: No Review of Systems Const Denies fatigue, Denies fever(s), Denies night sweats, Denies poor appetite and Denies weight loss ENT Reports Normal hearing present, Denies dental pain, Denies dysphagia, Denies hearing loss, Denies mouth pain, Denies odynophagia, Denies throat swelling, Denies tongue swelling and Reports other (Dentition adequate) Card Reports no additional complaints Resp Reports no additional complaints GI Details: Denies abdominal pain, Denies melena, Denies bloating, Denies hematochezia, Denies constipation, Denies GI cramping, Denies dysphagia, Denies excessive flatus, Denies early satiety, Reports heartburn, Denies diarrhea, Denies nausea, Denies odynophagia, Denies vomiting and Denies hematemesis Skin/Breast Denies pruritus, Denies lesions, Denies rash and Denies jaundice Neuro Reports Normal hearing present and Denies Abnormal speech present Endo Denies fatigue Aller/Immun Denies throat swelling and Denies tongue swelling Physical Exam Vital Signs: Last Vital Signs Pulse 78 04/25/24 15:30 BP 146/88 H 04/25/24 15:30 BMI result Body Mass Index 26.7 Const General: cooperative, no acute distress, well developed and well groomed Nutritional Appearance: average body habitus and well nourished Orientation/consciousness: oriented to person, oriented to place and oriented to time Limitations: No language barrier HEENT Head: Yes normocephalic and Yes atraumatic Eyes General: appearance normal, both eyes and all related structures Pupils: Equal, round and reactive pupils present Neck Neck: Yes normal visual inspection and Yes no lymphadenopathy Thyroid: Thyroid normal Resp Effort & Inspection: normal respiratory effort and able to speak in complete sentences Auscultation: clear to auscultation bilaterally Cardio Rate: regular rate Rhythm: regular rhythm Heart sounds: Normal, physiologic split S2 sound present Peripheral pulses: radial pulses present and posterior tibial pulses present GI Inspection: No distended and No Abdominal panniculus present Palpation (GI): Soft to palpation, nontender, no guarding, not rigid and No hepatosplenomegaly present Percussion: Yes normal to percussion Auscultation: normal bowel sounds Rectal Exam - Female: deferred Skin General skin exam: no rashes or lesions noted, turgor normal, skin not dry, no jaundice, No spider nevi and no striae Rashes: no rashes Nails: normal Neuro General: oriented to person, oriented to place and oriented to time Cranial nerves: Yes Equal, round and reactive pupils present and Yes Normal hearing present Speech: No Abnormal speech present Extrem General: Yes normal to inspection, No clubbing, No cyanosis and No edema Psych Appearance: grossly normal and well kempt Mental Status: mental status grossly normal Speech and movement: Normal speech and movement present Affect: normal affect Attitude: cooperative Thought process: Normal thought process present and not confabulating Thought content: Normal thought content present Insight: Good insight present (Psych) Judgement: Good judgement present (Psych) Assessment & Plan Assessment & Plan (1) GERD (gastroesophageal reflux disease): Code(s): K21.9 - Gastro-esophageal reflux disease without esophagitis Category: Medical (2) Chronic idiopathic constipation: Code(s): K59.04 - Chronic idiopathic constipation Category: Medical (3) Abdominal bloating: Code(s): R14.0 - Abdominal distension (gaseous) Category: Medical Plan Her current regimen consists of famotidine, psyllium husk. She is being monitored for her MGUS and so far she has had some remission of sx. She is not so bloated, and is no longer taking the simethicone. she will have an occasional tight feeling across the upper abdomen but then it will go away. ROV 6 mos. Coding Level of Care Code Est Pt Level 3 (10353) Diagnoses GERD (gastroesophageal reflux disease) K21.9 Chronic idiopathic constipation K59.04 Abdominal bloating R14.0
== END 2024-04-25 15:58 | disposition home or self-care (01) ==
PROVIDERS: PCP Nurse Practitioner Family; Visit Provider Nurse Practitioner
DX: K21.9 Gastro-esophageal reflux disease without esophagitis (principal); K59.04 Chronic idiopathic constipation; R14.0 Abdominal distension (gaseous)
CPT/HCPCS: 99213

== ENCOUNTER → 2024-04-25 15:28 | Outpatient (BNVA) | payer OTHER, SELFPAY | PROVIDERS: PCP Nurse Practitioner Family; Visit Provider Nurse Practitioner ==

== ENCOUNTER 2024-06-06 13:43 | Outpatient (REF) | payer OTHER, SELFPAY ==
[2024-06-06 14:06] LABS: MANUAL DIFF FLAG NO
[2024-06-06 14:47] LABS: Erythrocyte Sedimentation Rate 14 MM/HR (0-20)
[2024-06-06 14:55] LABS: Alanine Aminotransferase 24 U/L (0-31); Albumin Level 4.3 g/dL (3.5-5.0); Alkaline Phosphatase 88 U/L (39-117); Anion Gap 12 (12-20); Aspartate Amino Transferase 22 U/L (5-31); Bilirubin Total 0.4 mg/dL (0.0-1.0); Blood Urea Nitrogen 11 mg/dL (9-16); C Reactive Protein 0.24 mg/dL (< or = 0.50); Calcium 9.4 mg/dL (8.4-10.2); Carbon Dioxide 26 mmol/L (22-29); Chloride 102 mmol/L (96-108); Estimated Glomerular Filt Rate > 60; Glucose Random 99 mg/dL (60-115); Sodium 136 mmol/L (135-145); Total Protein 7.9 g/dL (6.5-8.0)
[2024-06-06 14:56] LABS: Basophils Absolute Auto 0.1 X10*3/uL (0.0-0.2); Basophils Percent Auto 0.5 % (0-2); Eosinophils Absolute Auto 0.1 X10*3/uL (0.0-0.4); Eosinophils Percent Auto 0.9 % (0-4); Hematocrit 34.7 % (37.0-47.0); Hemoglobin 11.1 g/dl (12.0-16.0); Imm Gran Abs Auto 0.03 X10*3/uL (0.00-0.03); Imm Gran Pct Auto 0.3 % (0.0-0.4); Lymphocytes Absolute Auto 2.4 X10*3/uL (1.2-4.9); Lymphocytes Percent Auto 24.1 % (20-40); Mean Corpuscular Hemoglobin 25.5 pg (27.0-33.0); Mean Corpuscular Volume 79.6 fL (80.0-98.0); Mean Platelet Volume 8.5 fL (9.4-12.3); Monocytes Absolute Auto 0.7 X10*3/uL (0.1-1.2); Monocytes Percent Auto 6.9 % (2-11); Neutrophils Absolute Auto 6.6 x10*3/uL (2.0-8.3); Neutrophils Percent Auto 67.3 % (45-73); Platelet Count 428 X10*3/uL (160-400); Red Blood Count 4.36 X10*6/uL (4.20-5.50); Red Cell Distribution Width 15.9 % (11.0-16.0); White Blood Count 9.8 X10*3/uL (4.8-10.8)
== END 2024-06-06 13:44 | disposition home or self-care (01) ==
LOC: HO.LAB 13:43
PROVIDERS: PCP Nurse Practitioner Family; Visit Provider Student in an Organized Health Care Education/Training Program
DX: L40.50 Arthropathic psoriasis, unspecified (principal); Z79.631 Long term (current) use of antimetabolite agent
CPT/HCPCS: 36415; 80053; 85025; 85652; 86140

== ENCOUNTER 2024-07-02 07:07 | Outpatient (REF) | payer OTHER, SELFPAY ==
[2024-07-02 07:18] LABS: MANUAL DIFF FLAG NO
[2024-07-02 07:56] LABS: Basophils Absolute Auto 0.1 X10*3/uL (0.0-0.2); Basophils Percent Auto 1.1 % (0-2); Eosinophils Absolute Auto 0.1 X10*3/uL (0.0-0.4); Eosinophils Percent Auto 1.8 % (0-4); Hematocrit 33.9 % (37.0-47.0); Imm Gran Abs Auto 0.01 X10*3/uL (0.00-0.03); Imm Gran Pct Auto 0.2 % (0.0-0.4); Lymphocytes Absolute Auto 2.2 X10*3/uL (1.2-4.9); Lymphocytes Percent Auto 35.3 % (20-40); Mean Corpuscular HGB Conc 32.4 g/dl (31.0-35.0); Mean Corpuscular Hemoglobin 25.8 pg (27.0-33.0); Mean Corpuscular Volume 79.6 fL (80.0-98.0); Mean Platelet Volume 8.8 fL (9.4-12.3); Monocytes Absolute Auto 0.8 X10*3/uL (0.1-1.2); Monocytes Percent Auto 12.4 % (2-11); Neutrophils Absolute Auto 3.1 x10*3/uL (2.0-8.3); Neutrophils Percent Auto 49.2 % (45-73); Platelet Count 439 X10*3/uL (160-400); Red Blood Count 4.26 X10*6/uL (4.20-5.50); Red Cell Distribution Width 15.6 % (11.0-16.0); White Blood Count 6.2 X10*3/uL (4.8-10.8)
[2024-07-02 08:31] LABS: Alanine Aminotransferase 36 U/L (0-31); Albumin Level 4.3 g/dL (3.5-5.0); Alkaline Phosphatase 81 U/L (39-117); Anion Gap 10 (12-20); Aspartate Amino Transferase 30 U/L (5-31); Bilirubin Total 0.4 mg/dL (0.0-1.0); Blood Urea Nitrogen 16 mg/dL (9-16); Carbon Dioxide 25 mmol/L (22-29); Chloride 106 mmol/L (96-108); Cholesterol 218 mg/dL (<200); Estimated Glomerular Filt Rate > 60; Glucose Fasting 99 mg/dL (60-99); HDL Cholesterol 60 mg/dL (>40); LDL Cholesterol Calculated 141 mg/dL (<100); Sodium 137 mmol/L (135-145); Total Protein 7.8 g/dL (6.5-8.0); Triglycerides 89 mg/dL (<150)
[2024-07-02 08:46] LABS: Vitamin D 25-OH Total 22.7 ng/mL (>30)
[2024-07-02 15:38] LABS: Appearance Urine Clear; Color Urine Yellow; Glucose Urine UA Negative (Negative); Leukocyte Esterase Urine Trace (Negative); Nitrite Urine Negative (Negative); PH 5.5 (5.0-9.0); UMIC TRIGGER UACC YES; Urine Blood Negative (Negative); Urine Ketones Negative (Negative); Urine Protein Negative (Neg-Trace)
[2024-07-02 16:04] LABS: Bacteria Urine None Seen (None Seen); Hyaline Casts Urine 0-2 /LPF (0-2); RBC Urine 0-2 /HPF (0-2); Squamous Epithelial Cell Urine 0-2 /HPF (0-2); UACC Culture Trigger YES
== END 2024-07-02 07:08 | disposition home or self-care (01) ==
LOC: HO.LAB 07:07
PROVIDERS: PCP Nurse Practitioner Family; Visit Provider Nurse Practitioner Family
DX: Z00.00 Encounter for general adult medical examination without abnormal findings (principal); E55.9 Vitamin D deficiency, unspecified
CPT/HCPCS: 36415; 80053; 80061; 81001; 81003; 82306; 84443; 85025; 87086

== ENCOUNTER 2024-07-30 15:46 | Outpatient (REF) | payer OTHER, SELFPAY ==
--- NOTE | ~2024-07-30 | MR_ITS ---
EXAMINATION: MR BREAST WITHOUT AND WITH CONTRAST, BILATERAL CLINICAL INFORMATION: Strong family history of breast cancer including patient's mother. High-risk screening. Patient had a left breast MRI guided biopsy at outside institution after her MRI April 2023. Images are not in our system at this time. COMPARISON: Mammogram August 2023 breast MRI April, February 2021, February 2020. TECHNIQUE: MR imaging of the breast was performed using T1, T2 and fat saturated techniques. Dynamic multiphase imaging was also performed after administration of intravenous gadolinium contrast agent. Computer generated 3-D reconstruction was performed. FINDINGS: There is heterogeneous fibroglandular breast tissue with moderate background enhancement. LEFT BREAST: Susceptibility artifacts from prior biopsy clips. No suspicious enhancing masses or areas of nonmass enhancement. No architectural distortion. No internal mammary or axillary adenopathy. RIGHT BREAST: Susceptibility artifact from prior biopsy clip. No suspicious enhancing masses or areas of nonmass enhancement. No architectural distortion. No internal mammary or axillary adenopathy. Limited views of the chest and abdomen are unremarkable. MR/MR breast BI wo/w con IMPRESSION: No MRI evidence of malignancy bilateral breasts. ASSESSMENT: LEFT BREAST: BI-RADS 2 benign. RIGHT BREAST: BI-RADS 2 benign. RECOMMENDATIONS: MM and yearly screening mammography. Recommend yearly breast MRI screening surveillance. Electronically signed by: Madhavi Sanches DO 08/01/2024 02:37 PM EST
[2024-07-30] MEDS: gadobutroL 7.5 ML VIAL 5 ML IVPUSH (16:55)
== END 2024-07-30 15:47 | disposition home or self-care (01) ==
LOC: HO.MRI 15:46
PROVIDERS: PCP Nurse Practitioner Family; Visit Provider Nurse Practitioner Family
DX: Z12.39 Encounter for other screening for malignant neoplasm of breast (principal); Z80.3 Family history of malignant neoplasm of breast
CPT/HCPCS: 77049; A9585

== ENCOUNTER → 2024-07-30 16:00 | Outpatient (BNV) | payer OTHER, SELFPAY | PROVIDERS: PCP Nurse Practitioner Family; Visit Provider Internal Medicine | DX: R92.333 Mammographic heterogeneous density, bilateral breasts (principal); Z80.3 Family history of malignant neoplasm of breast; Z97.8 Presence of other specified devices | CPT/HCPCS: 77049 ==

== ENCOUNTER 2024-08-27 09:27 | Outpatient (REF) | payer OTHER, SELFPAY ==
--- NOTE | ~2024-08-27 | MM_ITS ---
EXAMINATION: MM SCREENING DIGITAL BREAST TOMOSYNTHESIS, BILATERAL CLINICAL INFORMATION: Screening. Asymptomatic. Strong family history of breast cancer including patient's mother. Normal breast MRI July 30, 2024. Multiple bilateral benign needle core biopsies. COMPARISON: Mammography: Comparison is made with available priors TECHNIQUE: Digital breast mammography with tomosynthesis is performed in both the craniocaudal and mediolateral oblique views along with computer-aided detection (CAD). FINDINGS: There are scattered areas of fibroglandular density (ACR BI-RADS breast composition Category b). Marker clip in the upper outer right breast from previous needle core biopsy. Marker clip in the upper inner left breast from previous needle core biopsy and marker clips in the lower outer and lower inner right breast. There are no significant masses, abnormal calcifications, or other abnormalities. MM/MM tomosynthesis screening BI IMPRESSION: No mammographic evidence of malignancy. ASSESSMENT: BI-RADS BI-RADS 2 - Benign Findings RECOMMENDATION: Routine annual mammography screening. 1 year F/U This examination should not preclude the clinical evaluation of a suspicious palpable abnormality. This patient's information was entered into a reminder system with a target due date for their next mammogram. Electronically signed by: Madhavi Sanches DO 09/05/2024 03:49 PM EST
[2024-08-27 09:45] LABS: MANUAL DIFF FLAG NO
--- OUTSIDE RECORDS SUMMARY | 2024-08-27 10:39 | XMS_ITS | Clinical Summary ---
Author Organization [facility] Address [address] [place] [id number] Care Team Providers Care Feed Mill Supervisor Name Role Phone Unavailable Primary Care Provider Unavailabl e Social History Tobacco Use Types Packs/Day Years Used Date Smoking Tobacco: Never Assessed Sex and Gender Information Value Date Recorded Sex Assigned at Not on file Gender Identity Not on file Sexual Orientation Not on file Plan of Treatment Health Maintenance Due Date Last Done Comments Hepatitis C Virus Screening 1980 HIV Screening 1993 DTaP/Tdap/Td Vaccines (1 - Tdap) 12/02/1999 Hepatitis B Vaccines (1 of 3 - 19+ 3-dose series) 12/02/1999 COVID-19 Vaccine (2023-2 5 season) 2024 HPV Vaccines Aged Out No longer eligi ble based on patient's age to complete this topic Pneumococcal Vaccine: Pediat ghulam (0-5 Years) and At-Risk Patients (6 to 49 Years) Aged Out No longer eligible b ased on patient's age to complete this topic
[2024-08-27 10:56] LABS: Basophils Absolute Auto 0.1 X10*3/uL (0.0-0.2); Basophils Percent Auto 0.6 % (0-2); Eosinophils Absolute Auto 0.1 X10*3/uL (0.0-0.4); Eosinophils Percent Auto 0.9 % (0-4); Hematocrit 35.7 % (37.0-47.0); Hemoglobin 11.1 g/dl (12.0-16.0); Imm Gran Abs Auto 0.02 X10*3/uL (0.00-0.03); Imm Gran Pct Auto 0.3 % (0.0-0.4); Lymphocytes Absolute Auto 1.7 X10*3/uL (1.2-4.9); Lymphocytes Percent Auto 22.1 % (20-40); Mean Corpuscular HGB Conc 31.1 g/dl (31.0-35.0); Mean Corpuscular Hemoglobin 25.4 pg (27.0-33.0); Mean Corpuscular Volume 81.7 fL (80.0-98.0); Mean Platelet Volume 8.9 fL (9.4-12.3); Monocytes Absolute Auto 0.9 X10*3/uL (0.1-1.2); Monocytes Percent Auto 11.5 % (2-11); Neutrophils Percent Auto 64.6 % (45-73); Platelet Count 470 X10*3/uL (160-400); Red Blood Count 4.37 X10*6/uL (4.20-5.50); Red Cell Distribution Width 15.5 % (11.0-16.0); White Blood Count 7.8 X10*3/uL (4.8-10.8)
[2024-08-27 11:19] LABS: Alanine Aminotransferase 60 U/L (0-31); Albumin Level 4.3 g/dL (3.5-5.0); Alkaline Phosphatase 86 U/L (39-117); Anion Gap 10 (12-20); Aspartate Amino Transferase 36 U/L (5-31); Bilirubin Total 0.5 mg/dL (0.0-1.0); Blood Urea Nitrogen 10 mg/dL (9-16); Calcium 9.1 mg/dL (8.4-10.2); Carbon Dioxide 27 mmol/L (22-29); Chloride 106 mmol/L (96-108); Estimated Glomerular Filt Rate > 60; Glucose Random 86 mg/dL (60-115); Potassium 4.3 mmol/L (3.3-5.1); Sodium 139 mmol/L (135-145); Total Protein 8.2 g/dL (6.5-8.0)
[2024-08-27 11:34] LABS: Erythrocyte Sedimentation Rate 12 MM/HR (0-20)
[2024-08-27 11:58] LABS: HBS Num1 120.43 mIU/mL (0-7.99); HBc Num1 0.13 S/CO (0.00-0.79); Hepatitis A Antibody IgM 0.14 Index (0-0.79); Hepatitis B Core Antibody Nonreactive (Nonreactive); Hepatitis B Surface Antigen Negative (Negative); ~HepC Num1 0.06 S/CO (0.00-0.79); ~Hepatitis A Antibody IgM Nonreactive (Nonreactive); ~Hepatitis B Surface Antibody REACTIVE (Nonreactive); ~Hepatitis C Antibody Nonreactive (Nonreactive)
[2024-08-30 11:08] LABS: TS Negative Control Passed; TS Panel A 0; TS Panel B 0; TS Positive Control Passed; TSpotTB Negative (Negative)
== END 2024-08-27 09:28 | disposition home or self-care (01) ==
LOC: HO.MAMMO 09:27
PROVIDERS: Absent Provider Student in an Organized Health Care Education/Training Program; PCP Nurse Practitioner Family; Visit Provider Nurse Practitioner Family
DX: L40.50 Arthropathic psoriasis, unspecified (principal); Z12.31 Encounter for screening mammogram for malignant neoplasm of breast
CPT/HCPCS: 36415; 77063; 77067; 80053; 85025; 85652; 86140; 86481; 86704; 86706; 86709; 86803; 87340

== ENCOUNTER → 2024-08-27 12:00 | Outpatient (BNV) | payer OTHER, SELFPAY | PROVIDERS: Absent Provider Student in an Organized Health Care Education/Training Program; PCP Nurse Practitioner Family; Visit Provider Internal Medicine | DX: Z12.31 Encounter for screening mammogram for malignant neoplasm of breast (principal) | CPT/HCPCS: 77063; 77067 ==

== ENCOUNTER 2024-09-12 14:06 | Outpatient (REF) | payer OTHER, SELFPAY ==
[2024-09-12 14:24] LABS: MANUAL DIFF FLAG NO
[2024-09-12 15:01] LABS: Basophils Absolute Auto 0.1 X10*3/uL (0.0-0.2); Basophils Percent Auto 0.6 % (0-2); Eosinophils Absolute Auto 0.1 X10*3/uL (0.0-0.4); Eosinophils Percent Auto 1.3 % (0-4); Hematocrit 33.9 % (37.0-47.0); Hemoglobin 10.5 g/dl (12.0-16.0); Imm Gran Abs Auto 0.03 X10*3/uL (0.00-0.03); Imm Gran Pct Auto 0.3 % (0.0-0.4); Lymphocytes Absolute Auto 2.3 X10*3/uL (1.2-4.9); Lymphocytes Percent Auto 23.2 % (20-40); Mean Corpuscular Hemoglobin 24.9 pg (27.0-33.0); Mean Corpuscular Volume 80.5 fL (80.0-98.0); Mean Platelet Volume 8.9 fL (9.4-12.3); Monocytes Absolute Auto 0.9 X10*3/uL (0.1-1.2); Monocytes Percent Auto 8.9 % (2-11); Neutrophils Absolute Auto 6.4 x10*3/uL (2.0-8.3); Neutrophils Percent Auto 65.7 % (45-73); Platelet Count 432 X10*3/uL (160-400); Red Blood Count 4.21 X10*6/uL (4.20-5.50); Red Cell Distribution Width 15.1 % (11.0-16.0); White Blood Count 9.7 X10*3/uL (4.8-10.8)
[2024-09-12 15:39] LABS: Erythrocyte Sedimentation Rate 15 MM/HR (0-20)
[2024-09-12 15:53] LABS: Appearance Urine Clear; Color Urine Yellow; Glucose Urine UA Negative (Negative); Leukocyte Esterase Urine Negative (Negative); Nitrite Urine Negative (Negative); PH 5.5 (5.0-9.0); UMIC TRIGGER UACC YES; Urine Blood Small (1+) (Negative); Urine Ketones Negative (Negative); Urine Protein Negative (Neg-Trace)
[2024-09-12 16:05] LABS: Bacteria Urine None Seen (None Seen); Hyaline Casts Urine 0-2 /LPF (0-2); RBC Urine 0-2 /HPF (0-2); Squamous Epithelial Cell Urine 0-2 /HPF (0-2); WBC Urine 0-5 /HPF (0-5)
--- OUTSIDE RECORDS SUMMARY | 2024-09-12 16:18 | XMS_ITS | Clinical Summary ---
Author Organization [facility] Address [address] [place] [id number] Care Team Providers Care Plating And Point Assembly Supervisor Name Role Phone Unavailable Primary Care [...]
[2024-09-12 16:36] LABS: Alanine Aminotransferase 21 U/L (0-31); Albumin Level 4.2 g/dL (3.5-5.0); Anion Gap 13 (12-20); Aspartate Amino Transferase 21 U/L (5-31); Bilirubin Total 0.2 mg/dL (0.0-1.0); Blood Urea Nitrogen 18 mg/dL (9-16); C Reactive Protein 0.26 mg/dL (< or = 0.50); Calcium 9.3 mg/dL (8.4-10.2); Carbon Dioxide 25 mmol/L (22-29); Chloride 105 mmol/L (96-108); Estimated Glomerular Filt Rate > 60; Glucose Random 78 mg/dL (60-115); Potassium 4.1 mmol/L (3.3-5.1); Sodium 139 mmol/L (135-145); Total Protein 8.2 g/dL (6.5-8.0)
[2024-09-12 17:54] LABS: Alkaline Phosphatase 84 U/L (39-117)
[2024-09-14 23:43] LABS: TS Negative Control Passed; TS Panel A 0; TS Panel B 0; TS Positive Control Passed; TSpotTB Negative (Negative)
[2024-09-15 08:55] LABS: HBS Num1 126.19 mIU/mL (0-7.99); HBc Num1 0.07 S/CO (0.00-0.79); HBsAGNum1 0.36 S/CO (0.00-0.99); Hepatitis A Antibody IgM 0.17 Index (0-0.79); Hepatitis B Core Antibody Nonreactive (Nonreactive); Hepatitis B Surface Antigen Negative (Negative); ~HepC Num1 0.12 S/CO (0.00-0.79); ~Hepatitis A Antibody IgM Nonreactive (Nonreactive); ~Hepatitis B Surface Antibody REACTIVE (Nonreactive); ~Hepatitis C Antibody Nonreactive (Nonreactive)
== END 2024-09-12 14:07 | disposition home or self-care (01) ==
LOC: HO.LAB 14:06
PROVIDERS: Absent Provider Nurse Practitioner Family; PCP Nurse Practitioner Family; Visit Provider Student in an Organized Health Care Education/Training Program
DX: L40.50 Arthropathic psoriasis, unspecified (principal)
CPT/HCPCS: 36415; 80053; 81001; 85025; 85652; 86140; 86481; 86704; 86706; 86709; 86803; 87340

== ENCOUNTER 2024-09-19 15:13 | Outpatient (AMB) | payer OTHER, SELFPAY ==
--- NOTE | 2024-09-19 15:26 | A.OFFVIS_ITS ---
Vital Signs 09/19/24 15:33 Height 5 ft 7 in Weight 173 lb 11.588 oz BMI 27.2 BP 152/90 H Blood Pressure Location Lt brachial Position Sitting Pulse 86 Pulse Source Pulse Oximeter Pulse Oximetry (%) 98 Oxygen Delivery Method Room Air Intake Visit Reasons: discuss labs Intake Note: Patient presents to discuss labs. Allergies Sulfa (Sulfonamide Antibiotics) [SULFA (SULFONAMIDE ANTIBIOTICS)] Allergy (Unknown, Verified 09/19/24 15:29) UNKNOWN, hives Medication List - Last Reconciled 09/19/24 by Lizzie Hidalgo MD famotidine 40 mg PO BEDTIME pantoprazole 40 mg PO DAILY HPI Comments Details: Patient is a 43-year-old female with hyperlipidemia, MGUS, IBS with constipation and psoriatic arthritis here today for follow up Interval History: Patient last seen 02/25/[address] Peñaloza. At that time she was following up for psoriatic arthritis. Patient was maintained on methotrexate 50 mg weekly and folic acid 1 mg daily and reported that she was doing well overall with no active arthritis since the last visit. She did note that she felt fatigued throughout the week. Because of the fatigue the methotrexate was reduced to 10 mg weekly Even on the 10 mg of methotrexate she had transaminitis and so her methotrexate was stopped. Repeat blood work had resolution of her transaminitis. Today, She reports that her joints feel overall fine but does report intermittent achiness and overall fatigue. Rheumatologic History: PsA dx 2019 with foot dactylitis, then recurrent knee effusions. No history suggestive of uveitis or IBD Partial response to NSAIDs (ibuprofen, nabumetone) MTX 20 mg started 12/05 effective reduced to 15 mg 08/2023 Initial history: Of note patient was evaluated by Dr. Randle in 2019 at that time she had similar pain and swelling of her right 4th toe. She was started on ibuprofen 800 mg 3 to 4 times a day for 1-2 months with resolution of the pain and swelling. She stated that previously she has had multiple knee joint pain swelling, she has had multiple arthrocentesis and steroid injections. She also stated that in 2014 she was diagnosed with pseudotumor cerebri and she was advis ed to lose weight. She lost 10-20 lb of weight with improvement of her headaches and blurry vision. Three months ago she started having left 2nd toe pain and swelling which is quite similar to the swelling she had in 2019. She denies any back pain. No other joint complaints. Denies any skin rashes. Her mother has psoriasis. There is no history suggestive of uveitis or IBD. Patient stated that in 2019 she was referred to a insulator technician in [place] and methotrexate was recommended but patient did not start it. Current Rheumatology Medication(s): Methotrexate 10 mg weekly (stopped) Folic acid 1 mg daily [facility] Medical History (Updated 06/19/24 @ 15:34 by Nishant Watson [facility]) Physical exam Immunization counseling Abnormal finding on CT scan Acute diarrhea Epigastric pain determined by examination Pre-op examination Pseudotumor cerebri Monoclonal gammopathies Surgical History History of esophagogastroduodenoscopy (EGD) Hx of dilation and curettage [place] teeth removed Family History Mother Metabolic disease Diabetes Breast cancer Hypertension High cholesterol Psoriasis Father Hypertension High cholesterol Maternal Grandmother Pancreatic cancer Maternal Grandfather Heart disease Paternal Grandfather Alzheimer disease Paternal Grandfather Dementia Social History Household Members: Spouse and Children Housing: House Are you a primary career resource technician to a significant other at home: No Do you presently have visiting nurse or other home services: No Alcohol intake: current Alcohol intake frequency: a few times a month Alcohol type: wine Patient Tobacco Use Status: Never used Tobacco e-Cigarette/Vaping Use: Never Used service: No Current occupational status: employed Cognitive needs: No Hearing needs: No Vision needs: No Review of Systems Const Details: Review of Systems Constitutional: Denies fever, chills, weight loss ENT: Denies vision changes, eye pain or eye redness, dental caries, dry mouth GI: Denies nausea, vomiting, diarrhea, abdominal pain, change in BM Pulm: Denies SOB, MARTINEZ, hemoptysis, wheezing Cards: Denies chest pain, palpitations Skin: Denies Raynaud's, rash, nail changes, photosensitivity, MEDICAL LABORATORY SCIENTIST: Denies headaches, weakness, paresthesias, recurrent falls MSK: as per HPI All other systems reviewed and are unremarkable except noted above Physical Exam Vital Signs: Last Vital Signs Pulse 86 09/19/24 15:33 BP 152/90 H 09/19/24 15:33 Pulse Ox 98 09/19/24 15:33 Oxygen Delivery Method Room Air 09/19/24 15:33 BMI result Body Mass Index 27.2 Vital signs reviewed Physical Examination CONSTITUITIONAL Patient alert and cooperative. Well appearing and in no apparent painful distress HEENT Conjunctiva and sclera clear. ?Pupils equal round and reactive to light. ?No lymphadenopathy. ? CHEST/RESPIRATORY SYSTEM Normal respiratory effort and able to speak in complete sentences. ?Clear to auscultation bilaterally. ?No crackles, rales, rhonchi, wheezes heard. CARDIAC SYSTEM Regular rate and rhythm. ?S1 and S2 heard no murmurs. ?Radial pulses intact bilaterally MSK Hands: ?Good insurance claims supervisor strength bilaterally. No deformities noted. ?No synovitis noted to the MCPs, PIPs or DIPs. ?No tenderness to palpation of these joints. Few Heberden's nodes noted. Wrists: ?Full range of motion at the wrists without pain. ?No tenderness to palpation or synovitis noted to the wrists. Elbows: Full range of motion without pain. No tenderness, weakness, swelling, increased warmth or erythema. Shoulders: Full range of motion without pain. No tenderness, weakness, swelling, increased warmth or erythema. Hips: Full range of motion without pain. Hip bursa: No tenderness to palpation Knees: ?Full range of motion. ?No tenderness, swelling, increased warmth or erythema.?No effusion or crepitations Ankles: Full range of motion. ?No tenderness, swelling, increased warmth or erythema.? Feet: ?Negative squeeze test. ?No tenderness to palpation or swelling of the MTPs. Tender points:?No tenderness to palpation of the bilateral trapezius, supraspinatus, greater trochanters, anterior costochondral junctions, bilateral gluteal areas, bilateral suboccipital muscle insertions SKIN Skin intact without rashes. Results Reviewed Results Reviewed: Laboratory Tests 08/27/24 09/12/24 09:44 14:22 WBC 9.7 RBC 4.21 Hgb 10.5 L Hct 33.9 L Plt Count 432 H ESR 15 Sodium 139 Potassium 4.1 Chloride 105 Carbon Dioxide 25 BUN 18 H Creatinine 0.68 AST 36 H 21 ALT 60 H 21 C-Reactive Protein 0.30 0.26 Total Protein 8.2 H 8.2 H Laboratory Tests 07/21/22 09:13 HLA-B27 Negative Assessment & Plan Assessment & Plan (1) Psoriatic arthritis: Comment: PsA dx 2019 with foot dactylitis, then recurrent knee effusions. No history suggestive of uveitis or IBD Partial response to NSAIDs (ibuprofen, nabumetone) MTX 20 mg started 12/05 effective reduced to 15 mg 08/2023 Code(s): L40.50 - Arthropathic psoriasis, unspecified Category: Medical Plan: #Psoriatic Arthritis Patient is a 43-year-old female with psoriatic arthritis as evidenced by dactylitis and recurrent arthritis involving her feet and her knees. She was initially started on methotrexate which was effective however had transaminitis with the methotrexate even at 10 mg which resolved after cessation of the medication. Patient will need another medication. At this time she would prefer not to move to injectables. 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 Benefits include decreased joint pain and morbidity Risks include GI upset including diarrhea, hypersensitivity reactions, significant weight loss, symptoms of depression Plan I spent 35 minutes reviewing the record and labs, taking a history, examining the patient, discussing the treatment plan and documenting in the medical record Medications: New apremilast To be taken after completing the starter pack 30 mg PO BID 180 tabs 1RF L40.50 - Arthropathic psoriasis, unspecified apremilast PO PER PKG DIR Starter pack 55 ea 0RF L40.50 - Arthropathic psoriasis, unspecified Coding Level of Care Code Est Pt Level 4 (22125) Complex EM visit Add On G2211 Diagnoses Psoriatic arthritis L40.50 Long-term current use of apremilast Z79.61
[2024-09-19 15:33] VITALS: BP 152/90; PULSE 86; O2SAT 98; BMI 27.2
--- OUTSIDE RECORDS SUMMARY | 2024-09-19 16:48 | XMS_ITS | Clinical Summary ---
Author Organization [facility] Address [address] [place] [id number] Care Team Providers Care Surgical Brace Maker Name Role Phone Unavailable Primary Care Provider [...]
== END 2024-09-19 16:10 | disposition home or self-care (01) ==
PROVIDERS: PCP Nurse Practitioner Family; Visit Provider Student in an Organized Health Care Education/Training Program
DX: L40.50 Arthropathic psoriasis, unspecified (principal); Z79.61 Long term (current) use of immunomodulator
CPT/HCPCS: 99214

== ENCOUNTER 2024-09-22 13:48 | Outpatient (AMB) | payer OTHER, SELFPAY ==
[2024-09-22 13:57] VITALS: BP 168/88; PULSE 82; RESP 18; O2SAT 100; BMI 27.0
--- NOTE | 2024-09-22 13:57 | A.OFFPC_ITS ---
Vital Signs 09/22/24 13:57 09/22/24 14:56 Height 5 ft 7 in Weight 172 lb 6 oz BMI 27.0 BP 168/88 H 156/80 H Blood Pressure Location Lt brachial Lt brachial Position Sitting Sitting Respiration 18 Pulse 82 Pulse Source Pulse Oximeter Pulse Oximetry (%) 100 Oxygen Delivery Method Room Air Intake Visit Reasons: Annual PE/Two appts 08/19/24 1 Cx Intake Note: pt is here for her annual exam Donor Recruiter Required: No Accompanied by: Self / Same As Patient Allergies Sulfa (Sulfonamide Antibiotics) [SULFA (SULFONAMIDE ANTIBIOTICS)] Allergy (Unknown, Verified 09/22/24 14:32) UNKNOWN, hives Medication List - Last Reconciled 09/22/24 by VALENTE Goode- apremilast 30 mg PO BID apremilast PO PER PKG DIR Starter pack famotidine 40 mg PO BEDTIME pantoprazole 40 mg PO DAILY Tobacco use date assessed: 09/22/24 Dental Screening Dental Screen Date: 09/22/24 Did you have a dental visit in the last 12 months?: Yes Did you have a dental problem in the last 6 months where you did not have access to dental care?: No Was dental information given to patient?: Patient has dentist HPI Annual PE/Two appts 08/19/24 1 Cx HPI Details History of Present Illness The patient is a 43-year-old female presenting with left pelvic pain. The pain is characterized as deep, intermittent, and of several weeks' duration. She denies any exacerbation with menstruation or trigger events, indicating the absence of related symptoms. The patient is currently under regular care of specialists including a rn trauma, police radio dispatcher, and insulation cutter and former. She reports generalized fatigue but denies related respiratory or gastrointestinal complaints such as shortness of breath, chest pain, or abnormalities in bowel habits. Health Maintenance - Regular mammography screening - Follows up with rn trauma, rheumato logist, and insulation cutter and former - Continuation of specialist care for co mprehensive management Social History Review of Systems - Gastrointestinal: Denies blood in stoo l, constipation, diarrhea - Respiratory: Denies chest pain, shortn ess of breath - Abdominal: Reports left pelvic pain, d enies belly pain Physical Exam General: Cooperative, healthy appearing, comfortable, no acute distress and well developed Orientation: Patient oriented x3 Limitations: No limitations Head: Normal to inspection Ears: right canal with small amt of cerumen Nose: Normal external nose present Face and sinus: Normal facial exam Eyes: Appearance normal, both eyes and all related structures Neck: Normal visual inspection and Yes full ROM Respiratory: Normal respiratory effort and able to speak in complete sentences. Clear to auscultation bilaterally Cardiovascular: Regular rate and rhythm. Normal S1 and S2, faint systolic murmur GI: Normal to inspection. Soft to palpation and nontender, except for left pelvic pain with deep palpation Skin: No rashes or lesions noted Neuro: Patient oriented x3 Extremities: Normal to inspection Results Plan An ultrasound will be obtained to evaluate the left pelvic pain further. Regular consultations with specialists, including the planned therapeutic intervention by her police radio dispatcher, should continue. Monitoring of the generalized fatigue is recommended through her specialists. Discussion Notes I discussed with the patient the plan to proceed with an ultrasound to further evaluate her pelvic pain. The potential causes of pelvic pain were considered, and the patient was informed about the need for further diagnostic imaging. The importance of regular follow-up with her rn trauma, police radio dispatcher, and insulation cutter and former was reinforced, given the complexity of her care involving multiple specialties. Cut out sodium in her diet, eat a better balanced diet, increase physical activity as well. Patient Instructions - Schedule and undergo the recommended p elvic ultrasound. - Continue follow-up appointments with y felipe rn trauma, police radio dispatcher, and insulation cutter and former for ongoing management. - Monitor any changes in symptoms and re port them during follow-ups. - Maintain regular screening and health maintenance as advised by specialists. [facility] Medical History Physical exam Immunization counseling Abnormal finding on CT scan Acute diarrhea Epigastric pain determined by examination Pre-op examination Pseudotumor cerebri Monoclonal gammopathies Surgical History History of esophagogastroduodenoscopy (EGD) Hx of dilation and curettage [place] teeth removed Family History Mother Metabolic disease Diabetes Breast cancer Hypertension High cholesterol Psoriasis Father Hypertension High cholesterol Maternal Grandmother Pancreatic cancer Maternal Grandfather Heart disease Paternal Grandfather Alzheimer disease Paternal Grandfather Dementia Social History Household Members: Spouse and Children Housing: House Are you a primary account executive healthcare to a significant other at home: No Do you presently have visiting nurse or other home services: No Alcohol intake: current Alcohol intake frequency: a few times a month Alcohol type: wine Patient Tobacco Use Status: Never used Tobacco e-Cigarette/Vaping Use: Never Used service: No Current occupational status: employed Cognitive needs: No Hearing needs: No Vision needs: No Questionnaire Thrive Questionnaire Date Thrive assessed: 08/19/24 I am a: Patient What is your living situation today?: I have a steady place to live Within the past 12 months, did the food you bought not last and you didn't have the money to get more?: Never true Within the past 12 months, did you worry whether your food would run out before you got money to buy more?: Never true Do you have trouble paying for medicines?: No Do you have trouble getting transportation to medical appointments?: No Do you have trouble paying your heating and electricity bill?: No Do you have trouble taking care of your child, family member or friend?: No Do you have trouble with day-to-day activities such as bathing, preparing meals, shopping, managing finances, etc.?: No Are you currently unemployed and looking for a job?: No Are you interested in more education?: No Please select the resources that you would like help with: None Currently or been in a relationship where the following occur: No concerns reported THRIVE Score: 0 Physical exam (Primary Care) Vital Signs: Last Vital Signs Pulse 82 09/22/24 13:57 Resp 18 09/22/24 13:57 BP 168/88 H 09/22/24 13:57 Pulse Ox 100 09/22/24 13:57 Oxygen Delivery Method Room Air 09/22/24 13:57 BMI result Body Mass Index 27.0 Tobacco/Smoking Status: Tobacco use Status Tobacco use date assessed 09/22/24 09/22/24 14:19 Patient Tobacco Use Status Never used Tobacco 09/22/24 13:59 e-Cigarette/Vaping Use Never Used 09/22/24 13:59 Thrive Assessment: Date of Thrive Assessment Date Thrive assessed 08/19/24 09/22/24 13:59 Currently or been in a relationship where the following occur: No concerns reported Coding Level of Care Code Est Pt Prev Care 40-64y(09927) Diagnoses Physical exam Z00.00 Systolic murmur R01.1 Suprapubic pain R10.2 HTN (hypertension) I10 Assessment & Plan Assessment & Plan (1) Physical exam: Code(s): Z00.00 - Encounter for general adult medical examination without abnormal find ings Category: Medical (2) Systolic murmur: Code(s): R01.1 - Cardiac murmur, unspecified Category: Medical (3) Suprapubic pain: Code(s): R10.2 - Pelvic and perineal pain Category: Medical (4) HTN (hypertension): Code(s): I10 - Essential (primary) hypertension Category: Medical Plan: having her take her BP outside of the office, she will send me values. Plan . Orders: Orders Complete Blood Count Auto Diff Today Z00.00 - Encounter for general adult medical examination without abnormal findings Comprehensive [place]. Panel Fast Today Z00.00 - Encounter for general adult medical examination without abnormal findings UA CC w/rflx Micro + Cult Today Z00.00 - Encounter for general adult medical examination without abnormal findings CA echo transthoracic complete Today R01.1 - Cardiac murmur, unspecified US pelvic and transvaginal Today R10.2 - Pelvic and perineal pain TSH reflex Free T4 Today Z00.00 - Encounter for general adult medical examination without abnormal findings Lipid Panel Today Z00.00 - Encounter for general adult medical examination without abnormal findings
[2024-09-22 14:56] VITALS: BP 156/80
--- OUTSIDE RECORDS SUMMARY | 2024-09-22 15:38 | XMS_ITS | Clinical Summary ---
Author Organization [facility] Address [address] [place] [id number] Care Team Providers Care Supervisor Cell Maintenance Name Role Phone Unavailable Primary Care Provider [...]
== END 2024-09-22 15:11 | disposition home or self-care (01) ==
PROVIDERS: PCP Nurse Practitioner Family; Visit Provider Nurse Practitioner Family
DX: Z00.00 Encounter for general adult medical examination without abnormal findings (principal); R01.1 Cardiac murmur, unspecified; R10.2 Pelvic and perineal pain; I10 Essential (primary) hypertension

== ENCOUNTER → 2024-10-02 10:52 | Outpatient (REF) | payer OTHER, SELFPAY ==
--- NOTE | 2024-10-02 10:56 | CA_ITS ---
Transthoracic Echocardiogram Patient (Last, First, Middle): Saima Bey M Gender: Female Date of : 1980 Age: 43 Procedure Date: 10/02/2024 Procedure Type: Transthoracic Echocardiogram Location: OP Height: 170.18 cm Weight: 77.11 kg BSA: 1.89 m2 Heart Rate: 77 bpm BP: 150 / 90 mmHg Ortho Nurse: SB Referring MD: Nishant Watson [facility] Security Guard: Pablito Trevizo MD Symptoms: R01.1 - Cardiac murmur, unspecified Study Quality: Adequate ECG Rhythm: Sinus Conclusions: - Normal study Findings Left Ventricle Normal left ventricular size, thickness, and systolic function. The visually estimated ejection fraction is between 60-65%. Diastolic function is normal for age. Right Ventricle Normal right ventricular cavity size and systolic function. Atria Both atria are normal in size. There is no evidence of interatrial shunt. Aortic Valve Normal aortic valve structure and function. There is no aortic valve stenosis. There is no aortic valve regurgitation. Mitral Valve Normal mitral valve structure and function. There is trace mitral valve regurgitation. There is no mitral valve stenosis. Pulmonic Valve The pulmonic valve is likely normal. Tricuspid Valve Normal tricuspid valve structure. There is trace tricuspid valve regurgitation. The right ventricular systolic pressure is normal. The right ventricular systolic pressure is 30 mmHg. Normal right atrial pressure. There is no evidence of pulmonary hypertension. Great Vessels All visible segments of the aorta are normal in size. The pulmonary artery was not well visualized. There is no dilatation of the ascending aorta measuring 2.70 cm. Venous The inferior vena cava is normal in size and collapses greater than 50% with inspiration. Pericardium/Pleural There is no evidence of pericardial effusion. Prior Study Comparison No prior study available for comparison. Measurements 2D Linear Measurements IVSd: 0.93 0.6-0.9/0.6-1.0 cm LVIDd: 3.81 3.9-5.3/4.2-5.9 cm LVIDd Index: 2.02 2.4-3.2/2.2-3.1 cm/m2 LVIDs: 2.24 2.0-3.6 cm LVPWd: 0.58 0.7-1.1 cm LA Diam: 3.00 2.7-3.8/3.0-4.0 cm LAIDs Index: 1.59 1.5-2.3 cm/m2 LV Mass: 98.98 67-162/88-224 g LV Mass Index: 52.37 43-95/49-115 g/m2 LVOT Diam: 1.90 3.0+(-)1.3 cm 2D Systolic Function EF 4C: 55.10 >55% EF 2C: 70.00 >55% EF BiP: 63.00 >55% Mitral Valve MV Pk E: 0.93 MV PK A: 0.87 MV Decel Time: 158.00 E/A: 1.10 E'Lateral: 12.50 E'Medial: 8.16 E/E' Med: 11.30 E/E' Lat: 7.40 PHT: 46.00 MVA PHT: 4.78 Decel [place]: 5.84 Aortic Valve AoV Pk Rush: 1.26 AoV Pk Grad: 6.00 ÁNGELA: 2.96 LVOT LVOT Pk Rush: 1.25 LVOT Mn Rush: 0.79 LVOT VTI: 0.24 LVOT Pk Grad: 6.00 LVOT Mn Grad: 3.00 LVOT Diam: 1.90 LVOT Area: 2.84 Diastolic Function MV Pk E: 0.93 MV Pk A: 0.87 E/A: 1.10 E'Medial: 8.16 E/E' Med: 11.30 E' Laterial: 12.50 E/E' Lat: 7.40 Right Ventricle TAPSE (mm): 21.50 TVS' Rush: 14.80 Tricuspid Valve TR Pk Rush: 2.60 TR Pk Grad: 27.00 RA Press: 3.00 RVSP: 30.00 Great Vessels Aorta Sinus of Valsalva: 2.50 2.0-3.5 cm Ao Asc: 2.70 2.1-3.4 cm Ao Arch: 2.60 Pulmonary Veins Pulm Vein S/D 1.20 Pulmonary Valve PV Pk Rush: 1.03 Peak PV Grad: 4.00 Updated in Other Vendor System with Status of Final Pablito Trevizo MD electronically signed on 10/03/2024 2:47:16 PM with status of Final
--- OUTSIDE RECORDS SUMMARY | 2024-10-02 12:48 | XMS_ITS | Clinical Summary ---
Author Organization [facility] Address [address] [place] [id number] Care Team Providers Care Thai Masseur Name Role Phone Unavailable Primary Care Provider [...]
== END ==
LOC: HO.CARD 10:52
PROVIDERS: PCP Nurse Practitioner Family; Visit Provider Nurse Practitioner Family
DX: R01.1 Cardiac murmur, unspecified (principal)
CPT/HCPCS: 93306

== ENCOUNTER → 2024-10-02 10:56 | Outpatient (BNV) | payer OTHER, SELFPAY | PROVIDERS: PCP Nurse Practitioner Family; Visit Provider Internal Medicine Cardiovascular Disease | DX: R01.1 Cardiac murmur, unspecified (principal) | CPT/HCPCS: 93306 ==

== ENCOUNTER 2024-10-16 15:22 | Outpatient (REF) | payer OTHER, SELFPAY ==
--- NOTE | ~2024-10-16 | US_ITS ---
CLINICAL HISTORY: R10.2 - Pelvic and perineal pain US pelvis transabdominal and transvaginal with color Doppler Comparison: None Findings: Transabdominal scanning performed for overall anatomy. Transvaginal scanning performed for additional detail. LMP: 10/06/2024 Retroverted uterus, normal size and echotexture, measuring 8.8 x 4.7 x 5.5 cm. Well defined endometrium, measuring less than 5.0 mm in thickness. The horizontal and vertical limbs of the IUD are well postioned within the endometrial cavity. The right ovary measures, 2.8 x 1.5 x 1.8 cm. Normal sonographic appearance right ovary. Normal color Doppler The left ovary measures, 3.0 x 2.3 x 2.2 cm. Normal sonographic appearance left ovary. Normal color Doppler No adnexal masses or fluid collections. No free fluid Impression: 1. Normal pelvic ultrasound with color and duplex Doppler. 2. The horizontal and vertical limbs of the IUD well positioned in the endomertial cavity. 3. Normal ovaries/adnexa. This document has been electronically signed by: Jackson Rey MD on 10/17/2024 15:24:36
--- OUTSIDE RECORDS SUMMARY | 2024-10-16 16:44 | XMS_ITS | Clinical Summary ---
Author Organization [facility] Address [address] [place] [id number] Care Team Providers Care Test Evaluator Name Role Phone Unavailable Primary Care Provider [...]
== END 2024-10-16 15:23 | disposition home or self-care (01) ==
LOC: HO.US 15:22
PROVIDERS: Visit Provider Nurse Practitioner Family
DX: R10.2 Pelvic and perineal pain (principal)
CPT/HCPCS: 76830; 76856

== ENCOUNTER → 2024-10-16 15:24 | Outpatient (BNV) | payer OTHER, SELFPAY | PROVIDERS: Visit Provider Radiology Diagnostic Radiology | DX: R10.2 Pelvic and perineal pain (principal) | CPT/HCPCS: 76830; 76856 ==

== ENCOUNTER 2024-10-24 14:58 | Outpatient (AMB) | payer OTHER, SELFPAY ==
--- NOTE | 2024-10-24 15:01 | MHC.OFFVIS ---
Vital Signs 10/24/24 15:03 Height 5 ft 7 in Weight 167 lb 8.821 oz BMI 26.2 BP 143/91 H Blood Pressure Location Lt brachial Position Sitting Pulse 83 Intake Visit Reasons: 6 month follow up Intake Note: Patient presents in office visit today in 6 months follow up. CC: Patient c/o Left lower pelvic pain for like 3 months, and lower back pain. Pain is constant, pain scale 5/10. She also c/o of acid reflux. Patient states that she was placed on iron because it was low . 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 Ski Production Required: No Accompanied by: Self / Same As Patient Allergies Sulfa (Sulfonamide Antibiotics) [SULFA (SULFONAMIDE ANTIBIOTICS)] Allergy (Unknown, Verified 09/22/24 14:32) UNKNOWN, hives HPI HPI 6 month follow up: Details: Assessment & Plan (1) GERD (gastroesophageal reflux disease): Code(s): K21.9 - Gastro-esophageal reflux disease without esophagitis Category: Medical (2) Chronic idiopathic constipation: Code(s): K59.04 - Chronic idiopathic constipation Category: Medical (3) Abdominal bloating: Code(s): R14.0 - Abdominal distension (gaseous) Category: Medical Plan Her current regimen consists of famotidine, psyllium husk. She is being monitored for her MGUS and so far she has had some remission of sx. She is not so bloated, and is no longer taking the simethicone. she will have an occasional tight feeling across the upper abdomen but then it will go away. ROV 6 mos. TODAY'S VISIT. Her current regimen consists of pantoprazole qam and famotidine, she has not needed to use the fiber. She just started Otezla which seems to help her BM's. She is c/o 3 mos of LLQ pain. It is about 4-7/10 some days worse that others but she can not ID exacerbating factors except slightly if she lays on her left side and better on rt side. I discussed the possible differential diagnosis which is very wide. We will do a trial of dicyclomine will help me to determine if this might be bowel spasm. I also explained that this could be musculoskeletal or even ovarian in origin. ROV next available [facility] Medical History (Updated 10/24/24 @ 15:46 by ADDIE Aponte) Physical exam Immunization counseling Abnormal finding on CT scan Acute diarrhea Epigastric pain determined by examination Pre-op examination Pseudotumor cerebri Monoclonal gammopathies Surgical History History of esophagogastroduodenoscopy (EGD) Hx of dilation and curettage [place] teeth removed Family History Mother Metabolic disease Diabetes Breast cancer Hypertension High cholesterol Psoriasis Father Hypertension High cholesterol Maternal Grandmother Pancreatic cancer Maternal Grandfather Heart disease Paternal Grandfather Alzheimer disease Paternal Grandfather Dementia Social History Household Members: Spouse and Children Housing: House Are you a primary health and social care teacher to a significant other at home: No Do you presently have visiting nurse or other home services: No Alcohol intake: current Alcohol intake frequency: a few times a month Alcohol type: wine Patient Tobacco Use Status: Never used Tobacco e-Cigarette/Vaping Use: Never Used service: No Current occupational status: employed Cognitive needs: No Hearing needs: No Vision needs: No Review of Systems Const Denies fatigue, Denies fever(s), Denies night sweats, Denies poor appetite and Denies weight loss ENT Reports Normal hearing present, Denies dental pain, Denies dysphagia, Denies hearing loss, Denies mouth pain, Denies odynophagia, Denies throat swelling, Denies tongue swelling and Reports other (Dentition adequate) Card Reports no additional complaints Resp Reports no additional complaints GI Details: Reports abdominal pain, Denies melena, Denies bloating, Denies hematochezia, Denies constipation, Denies GI cramping, Denies dysphagia, Denies excessive flatus, Denies early satiety, Reports heartburn, Denies diarrhea, Denies nausea, Denies odynophagia, Denies vomiting and Denies hematemesis Skin/Breast Denies pruritus, Denies lesions, Denies rash and Denies jaundice Neuro Reports Normal hearing present and Denies Abnormal speech present Endo Denies fatigue Aller/Immun Denies throat swelling and Denies tongue swelling Physical Exam Vital Signs: Last Vital Signs Pulse 83 10/24/24 15:03 BP 143/91 H 10/24/24 15:03 BMI result Body Mass Index 26.2 Const General: cooperative, no acute distress, well developed and well groomed Nutritional Appearance: average body habitus and well nourished Orientation/consciousness: oriented to person, oriented to place and oriented to time Limitations: No language barrier HEENT Head: Yes normocephalic and Yes atraumatic Eyes General: appearance normal, both eyes and all related structures Pupils: Equal, round and reactive pupils present Neck Neck: Yes normal visual inspection and Yes no lymphadenopathy Thyroid: Thyroid normal Resp Effort & Inspection: normal respiratory effort and able to speak in complete sentences Auscultation: clear to auscultation bilaterally Cardio Rate: regular rate Rhythm: regular rhythm Heart sounds: Normal, physiologic split S2 sound present Peripheral pulses: radial pulses present and posterior tibial pulses present GI Inspection: No distended and No Abdominal panniculus present Palpation (GI): Soft to palpation, Tenderness to palpation present (GI) (Very low left quadrant almost over the hip/groin), no guarding, not rigid and No hepatosplenomegaly present Percussion: Yes normal to percussion Auscultation: normal bowel sounds Rectal Exam - Female: deferred Back/Spine/Pelvis Thoracic/Lumbar Spine: straight leg raise negative bilaterally, No paraspinal muscle tenderness, No thoracic spinal tenderness and No lumbar spinal tenderness Sacroiliac joints: bilaterally nontender; by compression of iliac crest Skin General skin exam: no rashes or lesions noted, turgor normal, skin not dry, no jaundice, No spider nevi and no striae Rashes: no rashes Nails: normal Neuro General: oriented to person, oriented to place and oriented to time Cranial nerves: Yes Equal, round and reactive pupils present and Yes Normal hearing present Speech: No Abnormal speech present Extrem General: Yes normal to inspection, No clubbing, No cyanosis and No edema Psych Appearance: grossly normal and well kempt Mental Status: mental status grossly normal Speech and movement: Normal speech and movement present Affect: normal affect Attitude: cooperative Thought process: Normal thought process present and not confabulating Thought content: Normal thought content present Insight: Fair insight present (Psych) Judgement: Fair judgement present (Psych) Assessment & Plan Assessment & Plan (1) LLQ pain: Code(s): R10.32 - Left lower quadrant pain Category: Medical (2) Chronic idiopathic constipation: Code(s): K59.04 - Chronic idiopathic constipation Category: Medical (3) GERD (gastroesophageal reflux disease): Code(s): K21.9 - Gastro-esophageal reflux disease without esophagitis Category: Medical (4) Back pain: Code(s): M54.9 - Dorsalgia, unspecified Category: Medical (5) Arthralgia of left side of pelvis: Code(s): M25.552 - Pain in left hip Category: Medical Plan Her current regimen consists of pantoprazole qam and famotidine, she has not needed to use the fiber. She just started Otezla which seems to help her BM's. She is c/o 3 mos of LLQ pain. It is about 4-7/10 some days worse that others but she can not ID exacerbating factors except slightly if she lays on her left side and better on rt side. I discussed the possible differential diagnosis which is very wide. We will do a trial of dicyclomine will help me to determine if this might be bowel spasm. I also explained that this could be musculoskeletal or even ovarian in origin. ROV next available Orders: Orders US abdomen complete Today M25.552 - Pain in left hip, M54.9 - Dorsalgia, unspecified, R10.32 - Left lower quadrant pain UA CC w/rflx Micro + Cult Today M25.552 - Pain in left hip, M54.9 - Dorsalgia, unspecified, R10.32 - Left lower quadrant pain XR lumbar spine 2-3V Today M25.552 - Pain in left hip, M54.9 - Dorsalgia, unspecified, R10.32 - Left lower quadrant pain XR abdomen w decubitus Today M25.552 - Pain in left hip, M54.9 - Dorsalgia, unspecified, R10.32 - Left lower quadrant pain XR sacroiliac joint 1-2V Today M25.552 - Pain in left hip, M54.9 - Dorsalgia, unspecified, R10.32 - Left lower quadrant pain Medications: New dicyclomine 10 mg PO QID 120 caps 3RF M54.9 - Dorsalgia, unspecified, R10.32 - Left lower quadrant pain Refilled pantoprazole 40 mg PO DAILY 90 tabs 1RF K21.9 - Gastro-esophageal reflux disease without esophagitis, K59.04 - Chronic idiopathic constipation famotidine 40 mg PO BEDTIME 90 tabs 2RF K21.9 - Gastro-esophageal reflux disease without esophagitis, K59.04 - Chronic idiopathic constipation Coding Level of Care Code Est Pt Level 4 (64796) Diagnoses LLQ pain R10.32 Chronic idiopathic constipation K59.04 GERD (gastroesophageal reflux disease) K21.9 Back pain M54.9 Arthralgia of left side of pelvis M25.552 Time Spent (min) 35
[2024-10-24 15:03] VITALS: BP 143/91; PULSE 83; BMI 26.2
--- OUTSIDE RECORDS SUMMARY | 2024-10-24 15:03 | XMS_ITS | Clinical Summary ---
Author Organization [facility] Address [address] [place] [address] Care Team Providers Care Icu Nurse Name Role Phone Unavailable Primary Care Provider [...]
== END 2024-10-24 15:52 | disposition home or self-care (01) ==
PROVIDERS: PCP Nurse Practitioner Family; Visit Provider Nurse Practitioner
DX: R10.32 Left lower quadrant pain (principal); K59.04 Chronic idiopathic constipation; K21.9 Gastro-esophageal reflux disease without esophagitis; M54.9 Dorsalgia, unspecified; M25.552 Pain in left hip
CPT/HCPCS: 99214

== ENCOUNTER 2024-11-14 14:08 | Outpatient (REF) | payer OTHER, SELFPAY ==
--- NOTE | ~2024-11-14 | XR_ITS ---
EXAMINATION: XR LUMBOSACRAL SPINE CLINICAL INFORMATION: R10.32 - Left lower quadrant pain COMPARISON: None available. TECHNIQUE: Three views of the lumbosacral spine. FINDINGS: There is normal lumbar lordosis. The vertebral heights, alignment and disc heights are maintained. There is tiny ventral spurring inferior endplates of L1 and T12 vertebra. No lytic or sclerotic process seen. The paravertebral soft tissues are normal. XR/XR lumbar spine 2-3V IMPRESSION: Mild ventral spurring inferior endplate of L1 and T12 vertebra. No lytic or sclerotic process seen. Electronically signed by: James Quigley MD 11/14/2024 03:28 PM EDT
--- NOTE | ~2024-11-14 | XR_ITS ---
EXAMINATION: XR ABDOMEN COMPLETE CLINICAL INDICATION: R10.32 - Left lower quadrant pain COMPARISON: None available. TECHNIQUE: 2 views of the abdomen. FINDINGS: There is scattered gas in the small bowel loops and minimal stool in colon without distention. There is no free air under diaphragm on upright view. There is no organomegaly. No radiopaque density/calculi seen in right upper quadrant, kidneys or bladder. No gross bony abnormality. An IUD is present. XR/XR abdomen min 2V IMPRESSION: Unremarkable abdomen complete Electronically signed by: James Quigley MD 11/14/2024 03:30 PM EDT RP
--- NOTE | ~2024-11-14 | XR_ITS ---
EXAMINATION: XR SACROILIAC JOINTS CLINICAL INFORMATION: R10.32 - Left lower quadrant pain COMPARISON: None available. TECHNIQUE: 3 views of the sacroiliac joints FINDINGS: A small 1.4 cm sclerotic density in the left iliac bone likely a small bone island, best visualized on the left oblique view. Otherwise bones and soft tissues are normal. Acute fracture or lytic process. Alignment is anatomic. Incidental finding of spina bifida occulta S1 vertebra. Sacroiliac joint spaces are well-maintained without erosions or surrounding sclerosis. There is incidental finding of an IUD in pelvis. XR/XR sacroiliac joint 1-2V IMPRESSION: Unremarkable SI joints. Electronically signed by: James Quigley MD 11/14/2024 03:26 PM EDT
--- OUTSIDE RECORDS SUMMARY | 2024-11-14 14:28 | XMS_ITS | Clinical Summary ---
Author Organization [facility] Address [address] [place] [id number] Care Team Providers Care Cocoa Roaster Name Role Phone Unavailable Primary Care Provider Unavailabl e Social History Tobacco Use Types Packs/Day Years Used Date Smoking Tobacco: Never Assessed Comments Unknown Sex and Gender Information Value Date Recorded Sex Assigned at Not on file Legal Sex Female 9:26 AM EDT Gender Identity Not on file Sexual Orientation [...]
[2024-11-14 15:24] LABS: Appearance Urine Clear; Color Urine Yellow; Glucose Urine UA Negative (Negative); Leukocyte Esterase Urine Trace (Negative); Nitrite Urine Negative (Negative); PH 5.5 (5.0-9.0); Specific Gravity - Urine 1.025 (1.005-1.025); UMIC TRIGGER UACC YES; Urine Blood Negative (Negative); Urine Ketones 15 mg/dL (Negative); Urine Protein Negative (Neg-Trace)
[2024-11-14 15:27] LABS: Bacteria Urine Trace (None Seen); Hyaline Casts Urine 0-2 /LPF (0-2); RBC Urine 0-2 /HPF (0-2); UACC Culture Trigger YES
== END 2024-11-14 14:09 | disposition home or self-care (01) ==
LOC: HO.LAB 14:08
PROVIDERS: PCP Nurse Practitioner Family; Visit Provider Nurse Practitioner
DX: R10.32 Left lower quadrant pain (principal); M54.9 Dorsalgia, unspecified; M25.552 Pain in left hip
CPT/HCPCS: 72100; 72200; 74019; 81001; 87086

== ENCOUNTER → 2024-11-14 14:21 | Outpatient (BNV) | payer OTHER, SELFPAY | PROVIDERS: PCP Nurse Practitioner Family; Visit Provider Radiology Diagnostic Radiology | DX: R10.32 Left lower quadrant pain (principal) | CPT/HCPCS: 72100; 72200; 74019 ==

== ENCOUNTER 2024-12-19 13:11 | Outpatient (AMB) | payer OTHER, SELFPAY ==
--- NOTE | 2024-12-19 13:12 | MHC.OFFVIS ---
Vital Signs 12/19/24 13:13 Height 5 ft 7 in Weight 167 lb 8.821 oz BMI 26.2 Intake Visit Reasons: PsA Intake Note: Patient last seen by Doctor Lizzie Hidalgo on 09/19/24. Presents today for PsA follow up. Patient complains of bilateral foot pain today. Allergies Sulfa (Sulfonamide Antibiotics) [SULFA (SULFONAMIDE ANTIBIOTICS)] Allergy (Unknown, Verified 12/19/24 13:15) UNKNOWN, hives Medication List - Last Reconciled 12/19/24 by Lizzie Hidalgo MD apremilast 30 mg PO BID apremilast PO PER PKG DIR Starter pack ascorbic acid (vitamin C) (Vitamin C) 500 mg PO DAILY dicyclomine 10 mg PO QID famotidine 40 mg PO BEDTIME ferrous sulfate 325 mg PO DAILY pantoprazole 40 mg PO DAILY HPI Comments Details: Patient is a 43-year-old female with hyperlipidemia, MGUS, IBS with constipation and psoriatic arthritis here today for follow up Interval History: Patient last seen 09/19/2024 with me. At that time she was following up for her psoriatic arthritis. Her methotrexate was held due to transaminitis. And so she was started on Otezla for dactylitis and recurrent arthritis involving her feet and her knees. Today, Doing well on otezla without any side effects complaining of left lateral toe soreness and left groin pain Rheumatologic History: PsA dx 2019 with foot dactylitis, then recurrent knee effusions. No history suggestive of uveitis or IBD Partial response to NSAIDs (ibuprofen, nabumetone) MTX 20 mg started 12/05 effective reduced to 15 mg 08/2023 Initial history: Of note patient was evaluated by Dr. Randle in 2019 at that time she had similar pain and swelling of her right 4th toe. She was started on ibuprofen 800 mg 3 to 4 times a day for 1-2 months with resolution of the pain and swelling. She stated that previously she has had multiple knee joint pain swelling, she has had multiple arthrocentesis and steroid injections. She also stated that in 2014 she was diagnosed with pseudotumor cerebri and she was advised to lose weight. She lost 10-20 lb of weight with improvement of her headaches and blurry vision. Three months ago she started having left 2nd toe pain and swelling which is quite similar to the swelling she had in 2019. She denies any back pain. No other joint complaints. Denies any skin rashes. Her mother has psoriasis. There is no history suggestive of uveitis or IBD. Patient stated that in 2019 she was referred to a web press roll tender in [place] and methotrexate was recommended but patient did not start it. Current Rheumatology Medication(s): Otezla 30 mg b.i.d. [facility] Medical History (Updated 10/24/24 @ 15:46 by ADDIE Aponte) Physical exam Immunization counseling Abnormal finding on CT scan Acute diarrhea Epigastric pain determined by examination Pre-op examination Pseudotumor cerebri Monoclonal gammopathies Surgical History History of esophagogastroduodenoscopy (EGD) Hx of dilation and curettage [place] teeth removed Family History Mother Metabolic disease Diabetes Breast cancer Hypertension High cholesterol Psoriasis Father Hypertension High cholesterol Maternal Grandmother Pancreatic cancer Maternal Grandfather Heart disease Paternal Grandfather Alzheimer disease Paternal Grandfather Dementia Social History Household Members: Spouse and Children Housing: House Are you a primary rn managed care to a significant other at home: No Do you presently have visiting nurse or other home services: No Alcohol intake: current Alcohol intake frequency: a few times a month Alcohol type: wine Patient Tobacco Use Status: Never used Tobacco e-Cigarette/Vaping Use: Never Used service: No Current occupational status: employed Cognitive needs: No Hearing needs: No Vision needs: No Review of Systems Const Details: Review of Systems Constitutional: Denies fever, chills, weight loss ENT: Denies vision changes, eye pain or eye redness, dental caries, dry mouth GI: Denies nausea, vomiting, diarrhea, abdominal pain, change in BM Pulm: Denies SOB, MARTINEZ, hemoptysis, wheezing Cards: Denies chest pain, palpitations Skin: Denies Raynaud's, rash, nail changes, photosensitivity, SALES REPRESENTATIVE MALT LIQUORS: Denies headaches, weakness, paresthesias, recurrent falls MSK: as per HPI All other systems reviewed and are unremarkable except noted above Physical Exam Vital Signs: BMI result Body Mass Index 26.2 Vital signs reviewed Physical Examination CONSTITUITIONAL Patient alert and cooperative. Well appearing and in no apparent painful distress HEENT Conjunctiva and sclera clear. ?Pupils equal round and reactive to light. ?No lymphadenopathy. ? CHEST/RESPIRATORY SYSTEM Normal respiratory effort and able to speak in complete sentences. ?Clear to auscultation bilaterally. ?No crackles, rales, rhonchi, wheezes heard. CARDIAC SYSTEM Regular rate and rhythm. ?S1 and S2 heard no murmurs. ?Radial pulses intact bilaterally MSK Hands: ?Good mechanical unit repairer strength bilaterally. No deformities noted. ?No synovitis noted to the MCPs, PIPs or DIPs. ?No tenderness to palpation of these joints. Few Heberden's nodes noted. Wrists: ?Full range of motion at the wrists without pain. ?No tenderness to palpation or synovitis noted to the wrists. Elbows: Full range of motion without pain. No tenderness, weakness, swelling, increased warmth or erythema. Shoulders: Full range of motion without pain. No tenderness, weakness, swelling, increased warmth or erythema. Hips: Full range of motion bilaterally. Pain in the hip with exacerbated FLAIR maneuver Hip bursa: No tenderness to palpation Knees: ?Full range of motion. ?No tenderness, swelling, increased warmth or erythema.?No effusion or crepitations Ankles: Full range of motion. ?No tenderness, swelling, increased warmth or erythema.? Feet: ?Negative squeeze test. ?No tenderness to palpation or swelling of the MTPs. TTP of the PIPs of the left 4th and 5th toes Tender points:?No tenderness to palpation of the bilateral trapezius, supraspinatus, greater trochanters, anterior costochondral junctions, bilateral gluteal areas, bilateral suboccipital muscle insertions SKIN Skin intact without rashes. Results Reviewed Results Reviewed: Laboratory Tests 09/12/24 10/17/24 14:22 15:32 WBC 8.4 RBC 4.36 Hgb 11.1 L Hct 35.2 L Plt Count 416 H ESR 15 Sodium 141 Potassium 3.8 Chloride 106 Carbon Dioxide 26 BUN 11 Creatinine 0.72 AST 19 ALT 17 C-Reactive Protein 0.26 Total Protein 7.8 Albumin 4.3 Laboratory Tests 09/12/24 14:22 Hepatitis A IgM Ab Nonreactive Hep Bs Antigen Negative Hep Bs Antibody REACTIVE Hep B Core Total Ab Nonreactive Hepatitis C Ab (EIA) Nonreactive TB Test (T-Spot) Com Negative Assessment & Plan Assessment & Plan (1) Psoriatic arthritis: Comment: PsA dx 2019 with foot dactylitis, then recurrent knee effusions. No history suggestive of uveitis or IBD Partial response to NSAIDs (ibuprofen, nabumetone) MTX 20 mg started 12/05 effective reduced to 15 mg 08/2023 Code(s): L40.50 - Arthropathic psoriasis, unspecified Category: Medical Plan: #Psoriatic Arthritis Patient is a 43-year-old female with psoriatic arthritis as evidenced by dactylitis and recurrent arthritis involving her feet and her knees. She was initially started on methotrexate which was effective however had transaminitis with the methotrexate even at 10 mg which resolved after cessation of the medication. Started on Otezla and is tolerating medication man we will continue. No active signs of psoriatic arthritis or psoriasis at this time. Plan - Otezla 30mg bid - RTC 4 months - Labs before visit: CBC, CMP, ESR, CRP (2) Left hip pain: Code(s): M25.552 - Pain in left hip Plan: #Left hip pain Patient with left hip pain with a positive FLAIR maneuver. Concern for piriformis syndrome. We will get an MRI of her hip to look for tendonitis Plan - MR left hip (3) Long-term current use of apremilast: Code(s): Z79.61 - director long term care (current) use of immunomodulator Plan: #Long-term Current Use of Apremilast Risks and benefits of Apremilast in the management of psoriatic arthritis and psoriasis discussed with the patient. Benefits include decreased joint pain and morbidity Risks include GI upset including diarrhea, hypersensitivity reactions, significant weight loss, symptoms of depression Plan I spent 30 minutes reviewing the record and labs, taking a history, examining the patient, discussing the treatment plan and documenting in the medical record Orders: Orders MR hip LT wo con Today M25.552 - Pain in left hip Coding Level of Care Code Est Pt Level 4 (14892) Complex EM visit Add On G2211 Diagnoses Psoriatic arthritis L40.50 Left hip pain M25.552 Long-term current use of apremilast Z79.61
[2024-12-19 13:13] VITALS: BMI 26.2
--- OUTSIDE RECORDS SUMMARY | 2024-12-19 13:14 | XMS_ITS | Patient Health Record ---
Author Organization [facility] Address [address] [place] [address] Care Team Providers Care Superintendent Drilling And Production Name Role Phone RaffyJyothi gasca Primary Care Provider Unavail able Jose Alejandro Live Unavailable [phone] Allergies Allergen (clinical drug ingredient) Drug/Non Drug Allergy documented on EMR Reaction Allergy Type Onset Date Status sulfamethoxazole / trimethoprim Bactrim hives Drug Allergy Active sulfa hives Drug Allergy Active Reason For Referral No Information Medications Medication SIG (Take, Route, Fr equency, Duration) Notes Start Date End Date Status Nabumetone 750 MG as directed Orally Not-Taking Ibuprofen 800 MG 1 tablet with food o r milk as needed Orally Three times a day Not-Taking Naproxen 500 MG 1 tablet with food o r milk as needed Orally every 12 hrs Not-T aking ZyrTEC Active Voltaren 1 % Apply 4 grams to naomi nful area on foot as directed Externally Four times a day for 30 days 05/28/2019 Act michelle Immunizations Vaccine Route Administration Date Status Comme nts Influenza Unknown 05/20/2019 Administered Social History Tobacco Use: Social History Observation Description Date Details (start date - stop date) Former Smoker NA - NA Tobacco Use/Smoking Question Answer Notes Are you a: former smoker Additional Findings: Tobacco Non-User Current no n-smoker Alcohol Screen Question Answer Notes Did you have a drink containing alcohol in the p ast year? Yes Points 0 Interpretation Negative Tobacco use other than smoking: Question Answer Notes Are you an other tobacco user? 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) Active confirmed Plan Of Treatment No Information Insurance Providers Payer Name Payer Address Payer Phone Subscriber Number Group Number Insured Name Patient Relationship to Insured Coverage Start Date Coverage End Date R [address] [address] [place] [address] [phone] [id number] Sotero Saima Self - patient is the insured Medical (General) History Medical History History ICD Code Knee pain Chicken pox Migraines Headaches chronic sinusitis Unspecified inflammatory spondylopathy, 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
== END 2024-12-19 13:57 | disposition home or self-care (01) ==
LOC: HO.RHE 13:11
PROVIDERS: PCP Nurse Practitioner Family; Visit Provider Student in an Organized Health Care Education/Training Program
DX: L40.50 Arthropathic psoriasis, unspecified (principal); M25.552 Pain in left hip; Z79.61 Long term (current) use of immunomodulator
CPT/HCPCS: 99214

== ENCOUNTER 2024-12-29 14:38 | Outpatient (REF) | payer OTHER, SELFPAY ==
--- NOTE | ~2024-12-29 | MR_ITS ---
EXAMINATION: MRI left hip without contrast TECHNIQUE: Multiplanar multisequence imaging through a lower extremity joints was performed {without} contrast INDICATION: Decreased range of motion, left lower back pain radiating down left leg, sharp pain in the pelvis, no trauma Prior: None FINDINGS: Labrum: No definite labral tear is identified on this nonarthrogram study. Articular Cartilage/Joint fluid: There is a physiologic foramen joint fluid. Hip joint articular cartilage appears intact. Ligament/Muscle/Tendon: Ligament of teres is intact. There is increased signal on fluid sensitive sequences in the soft tissues adjacent to the distal gluteus medius tendon and to a lesser extent the distal gluteus minimus tendon and deep to IT band. Neurovascular: Major neurovascular structures are unremarkable. Deep and superficial soft tissues: There is no intrapelvic mass or ascites. Visualized bowel is grossly unremarkable. Subcutaneous soft tissues are within normal limits. There is no adenopathy. Bones/Marrow: Bone marrow signal is physiologic. SI joints are symmetrical without erosions, or ankylosis. Pubic symphysis joint is unremarkable. MR/MR hip LT wo con IMPRESSION: There is evidence of tendinopathy versus partial tear of the distal left gluteus medias greater than gluteus minimus tendons. Electronically signed by: Ever Wayne MD 12/29/2024 03:43 PM EDT
--- OUTSIDE RECORDS SUMMARY | 2024-12-29 16:22 | XMS_ITS | Patient Health Record ---
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) Active confirmed Plan Of Treatment No Information Insurance Providers Payer Name Payer Address Payer Phone Subscriber Number Group Number Insured Name Patient Relationship to Insured Coverage Start Date Coverage End Date R [address] [address] [place] [address] [id number] Sotero Saima Self - patient is the insured Medical (General) History Medical History History ICD Code Knee pain Chicken pox Migraines Headaches chronic sinusitis Unspecified inflammatory spondylopathy, 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
== END 2024-12-29 14:39 | disposition home or self-care (01) ==
LOC: HO.MRI 14:38
PROVIDERS: PCP Nurse Practitioner Family; Visit Provider Student in an Organized Health Care Education/Training Program
DX: M25.552 Pain in left hip (principal)
CPT/HCPCS: 73721

== ENCOUNTER → 2024-12-29 14:40 | Outpatient (BNV) | payer OTHER, SELFPAY | PROVIDERS: PCP Nurse Practitioner Family; Visit Provider Radiology Diagnostic Radiology | DX: M54.50 Low back pain, unspecified (principal); R10.2 Pelvic and perineal pain | CPT/HCPCS: 73721 ==

== ENCOUNTER 2025-01-30 15:42 | Outpatient (REF) | payer OTHER, SELFPAY ==
--- OUTSIDE RECORDS SUMMARY | 2025-01-30 15:45 | XMS_ITS | Clinical Summary ---
Author Organization [facility] Address [address] [place] [address] Care Team Providers Care Concept Artist Name Role Phone Unavailable Primary Care Provider [...]
--- OUTSIDE RECORDS SUMMARY | 2025-01-30 15:45 | XMS_ITS | Patient Health Record ---
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) Active confirmed Plan Of Treatment No Information Insurance Providers Payer Name Payer Address Payer Phone Subscriber Number Group Number Insured Name Patient Relationship to Insured Coverage Start Date Coverage End Date UMR [address] [address] [place] [phone] [id number] Saima Bey Self - patient is the insured Medical (General) History Medical History History ICD Code Knee pain Chicken pox Migraines Headaches chronic sinusitis Unspecified inflammatory spondylopathy, 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
[2025-01-30 15:53] LABS: MANUAL DIFF FLAG NO
[2025-01-30 16:10] LABS: Hematocrit 35.7 % (37.0-47.0); Hemoglobin 11.6 g/dl (12.0-16.0); Imm Gran Abs Auto 0.04 X10*3/uL (0.00-0.03); Imm Gran Pct Auto 0.4 % (0.0-0.4); Lymphocytes Absolute Auto 2.5 X10*3/uL (1.2-4.9); Mean Corpuscular HGB Conc 32.5 g/dl (31.0-35.0); Mean Corpuscular Hemoglobin 25.6 pg (27.0-33.0); Mean Corpuscular Volume 78.8 fL (80.0-98.0); NRBC Abs Auto 0.000 X10*3/uL (0.0-0.012); NRBC Pct Auto 0.0 /100WBC (0.0-0.2); Platelet Count 433 X10*3/uL (160-400); Red Blood Count 4.53 X10*6/uL (4.20-5.50); White Blood Count 9.6 X10*3/uL (4.8-10.8)
[2025-01-30 16:38] LABS: Alanine Aminotransferase 19 U/L (0-31); Albumin Level 4.7 g/dL (3.5-5.0); Alkaline Phosphatase 97 U/L (39-117); Anion Gap 10 (12-20); Aspartate Amino Transferase 20 U/L (5-31); Blood Urea Nitrogen 11 mg/dL (9-16); Calcium 9.1 mg/dL (8.4-10.2); Carbon Dioxide 29 mmol/L (22-29); Chloride 103 mmol/L (96-108); Estimated Glomerular Filt Rate > 60; Potassium 4.4 mmol/L (3.3-5.1); Sodium 138 mmol/L (135-145); Total Protein 8.1 g/dL (6.5-8.0)
== END 2025-01-30 15:43 | disposition home or self-care (01) ==
LOC: HO.LAB 15:42
PROVIDERS: PCP Nurse Practitioner Family; Visit Provider Student in an Organized Health Care Education/Training Program
DX: L40.50 Arthropathic psoriasis, unspecified (principal)
CPT/HCPCS: 36415; 80053; 85025; 85652; 86140

== ENCOUNTER 2025-02-17 15:34 | Outpatient (AMB) | payer OTHER, SELFPAY ==
[2025-02-17 15:41] VITALS: BP 140/72; PULSE 79; O2SAT 99; BMI 26.1
--- NOTE | 2025-02-17 15:41 | A.OFFVIS_ITS ---
Vital Signs 02/17/25 15:41 Height 5 ft 7 in Weight 166 lb 6 oz BMI 26.1 BP 140/72 H Blood Pressure Location Lt brachial Position Sitting Pulse 79 Pulse Source Pulse Oximeter Pulse Oximetry (%) 99 Oxygen Delivery Method Room Air Intake Visit Reasons: follow up Intake Note: Patient last seen by Doctor Lizzie Hidalgo on 12/19/24. Presents today for PsA follow up and test results. Accompanied by: Self / Same As Patient Allergies Sulfa (Sulfonamide Antibiotics) (SULFA (SULFONAMIDE ANTIBIOTICS)) Allergy (Unknown, Verified 02/17/25 15:46) UNKNOWN, hives HPI Comments Details: Patient is a 44-year-old female with hyperlipidemia, MGUS, IBS with constipation and psoriatic arthritis here today for follow up Interval History: Patient last seen 12/19/24 with me - On Otezla - Doing well - C/o left lateral toe soreness and left groin pain Since then had MRI of the left hip showing teninopathy Sent to PT Today, - Doing well - Has not started PT as yet - Some improvement in the left groin pain Rheumatologic History: PsA dx 2019 with foot dactylitis, then recurrent knee effusions. No history suggestive of uveitis or IBD Partial response to NSAIDs (ibuprofen, nabumetone) MTX 20 mg started 12/05 effective reduced to 15 mg 08/2023 Initial history: Of note patient was evaluated by Dr. Randle in 2019 at that time she had similar pain and swelling of her right 4th toe. She was started on ibuprofen 800 mg 3 to 4 times a day for 1-2 months with resolution of the pain and swelling. She stated that previously she has had multiple knee joint pain swelling, she has had multiple arthrocentesis and steroid injections. She also stated that in 2014 she was diagnosed with pseudotumor cerebri and she was advised to lose weight. She lost 10-20 lb of weight with improvement of her headaches and blurry vision. Three months ago she started having left 2nd toe pain and swelling which is quite similar to the swelling she had in 2019. She denies any back pain. No other joint complaints. Denies any skin rashes. Her mother has psoriasis. There is no history suggestive of uveitis or IBD. Patient stated that in 2019 she was referred to a intelligence support officer in [place] and methotrexate was recommended but patient did not start it. Current Rheumatology Medication(s): Otezla 30 mg b.i.d. [facility] Medical History (Updated 10/24/24 @ 15:46 by ADDIE Aponte) Physical exam Immunization counseling Abnormal finding on CT scan Acute diarrhea Epigastric pain determined by examination Pre-op examination Pseudotumor cerebri Monoclonal gammopathies Surgical History History of esophagogastroduodenoscopy (EGD) Hx of dilation and curettage Maynard teeth removed Family History Mother Metabolic disease Diabetes Breast cancer Hypertension High cholesterol Psoriasis Father Hypertension High cholesterol Maternal Grandmother Pancreatic cancer Maternal Grandfather Heart disease Paternal Grandfather Alzheimer disease Paternal Grandfather Dementia Social History Household Members: Spouse and Children Housing: House Are you a primary children's zoo caretaker to a significant other at home: No Do you presently have visiting nurse or other home services: No Alcohol intake: current Alcohol intake frequency: a few times a month Alcohol type: wine Patient Tobacco Use Status: Never used Tobacco e-Cigarette/Vaping Use: Never Used service: No Current occupational status: employed Cognitive needs: No Hearing needs: No Vision needs: No Review of Systems Const Details: Review of Systems Constitutional: Denies fever, chills, weight loss ENT: Denies vision changes, eye pain or eye redness, dental caries, dry mouth GI: Denies nausea, vomiting, diarrhea, abdominal pain, change in BM Pulm: Denies SOB, MARTINEZ, hemoptysis, wheezing Cards: Denies chest pain, palpitations Skin: Denies Raynaud's, rash, nail changes, photosensitivity, ANTENNA SPECIALIST: Denies headaches, weakness, paresthesias, recurrent falls MSK: as per HPI All other systems reviewed and are unremarkable except noted above Physical Exam Exam Exam: Vital signs reviewed Physical Examination CONSTITUITIONAL Patient alert and cooperative. Well appearing and in no apparent painful distress HEENT Conjunctiva and sclera clear. No lymphadenopathy. CHEST/RESPIRATORY SYSTEM Normal respiratory effort and able to speak in complete sentences. Clear to auscultation bilaterally. No crackles, rales, rhonchi, wheezes heard. CARDIAC SYSTEM Regular rate and rhythm. S1 and S2 heard no murmurs. Radial pulses intact bilaterally MSK Hands * Right Hand: Able to make a fist. No swelling or tenderness to palpation of these joints. * Left Hand: Able to make a fist. No swelling or tenderness to palpation of these joints. * Herbedens nodes noted bilaterally Wrists * Right Wrist: Full ROM. 70 degrees of wrist flexion, 80 degrees of wrist extension. No swelling or TTP * Left Wrist: Full ROM. 70 degrees of wrist flexion, 80 degrees of wrist extension. No swelling or TTP Elbows * Right Elbow: Full ROM. No swelling or TTP. No TTP of the medial and lateral epicondyles * Left Elbow: Full ROM. No swelling or TTP. No TTP of the medial and lateral epicondyles Shoulders * Right shoulder: Full ROM. No swelling noted. No TTP of the AC joint, subacromial bursa or posterior shoulder * Left shoulder: Full ROM. No swelling noted. No TTP of the AC joint, subacromial bursa or posterior shoulder Hip bursa: No tenderness to palpation bilaterally Knees * Right knee: Full ROM. No swelling noted. No TTP of the knee joint lie or pes anserine bursa * Left knee: Full ROM. No swelling noted. No TTP of the knee joint lie or pes anserine bursa. Ankles * Right ankle: Good ankle dorsiflexion and plantar flexion. No swelling. No TTP of the ankle joint * Left ankle: Good ankle dorsiflexion and plantar flexion. No swelling. No TTP of the ankle joint Feet * Right foot: Negative squeeze test * Left foot: Negative squeeze test Tender points? * No tenderness to palpation of the bilateral trapezius, supraspinatus, anterior costochondral junctions, bilateral suboccipital muscle insertions SKIN No rashes Vital Signs: Last Vital Signs Pulse 79 02/17/25 15:41 BP 140/72 H 02/17/25 15:41 Pulse Ox 99 02/17/25 15:41 Oxygen Delivery Method Room Air 02/17/25 15:41 BMI result Body Mass Index 26.1 Results Reviewed Results Reviewed: Laboratory Tests 01/30/25 15:51 WBC 9.6 RBC 4.53 Hgb 11.6 L Hct 35.7 L Plt Count 433 H ESR 18 Sodium 138 Potassium 4.4 Chloride 103 Carbon Dioxide 29 BUN 11 Creatinine 0.72 AST 20 ALT 19 Alkaline Phosphatase 97 C-Reactive Protein 0.30 Infectious serologies 09/12/24 14:22 Hepatitis A IgM Ab Nonreactive Hep Bs Antigen Negative Hep Bs Antibody REACTIVE Hep B Core Total Ab Nonreactive Hepatitis C Ab (EIA) Nonreactive TB Test (T-Spot) Com Negative MR Left Hip 12/2024 Addendum: Prominent pericervical vascularity could indicate underlying pelvic congestion syndrome. 18 mm low signal lesion in the myometrium of the right posterior left uterine body is consistent with an intramural leiomyoma. Bilateral ovarian follicles are visible. Dominant follicle in the left measures 14 x 23 mm. FINDINGS: Labrum: No definite labral tear is identified on this nonarthrogram study. Articular Cartilage/Joint fluid: There is a physiologic foramen joint fluid. Hip joint articular cartilage appears intact. Ligament/Muscle/Tendon: Ligament of teres is intact. There is increased signal on fluid sensitive sequences in the soft tissues adjacent to the distal gluteus medius tendon and to a lesser extent the distal gluteus minimus tendon and deep to IT band. Neurovascular: Major neurovascular structures are unremarkable. Deep and superficial soft tissues: There is no intrapelvic mass or ascites. Visualized bowel is grossly unremarkable. Subcutaneous soft tissues are within normal limits. There is no adenopathy. Bones/Marrow: Bone marrow signal is physiologic. SI joints are symmetrical without erosions, or ankylosis. Pubic symphysis joint is unremarkable. IMPRESSION: There is evidence of tendinopathy versus partial tear of the distal left gluteus medias greater than gluteus minimus tendons. Assessment & Plan Assessment & Plan (1) Psoriatic arthritis: Comment: PsA dx 2019 with foot dactylitis, then recurrent knee effusions. No history suggestive of uveitis or IBD Partial response to NSAIDs (ibuprofen, nabumetone) MTX 20 mg started 12/05 effective reduced to 15 mg 08/2023 Code(s): L40.50 - Arthropathic psoriasis, unspecified Category: Medical Plan: #Psoriatic Arthritis Patient is a 44-year-old female with psoriatic arthritis as evidenced by dactylitis and recurrent arthritis involving her feet and her knees. She was initially started on methotrexate which was effective however had transaminitis with the methotrexate even at 10 mg which resolved after cessation of the medication. Started on Otezla and is tolerating medication. No active signs of psoriatic arthritis or psoriasis at this time. Plan - Otezla 30mg bid - RTC 6 months - Labs before visit: CBC, CMP, ESR, CRP (2) Left hip pain: Code(s): M25.552 - Pain in left hip Plan: #Left hip pain MR consistent with tendonitis F/u PT (3) Long-term current use of apremilast: Code(s): Z79.61 - halfway (current) use of immunomodulator Plan: #Long-term Current Use of Apremilast Risks and benefits of Apremilast in the management of psoriatic arthritis and psoriasis discussed with the patient. Benefits include decreased joint pain and morbidity Risks include GI upset including diarrhea, hypersensitivity reactions, significant weight loss, symptoms of depression Plan I spent 25 minutes reviewing the record and labs, taking a history, examining the patient, discussing the treatment plan and documenting in the medical record Coding Level of Care Code Est Pt Level 3 (84058) Complex EM visit Add On G2211 Diagnoses Psoriatic arthritis L40.50 Left hip pain M25.552 Long-term current use of apremilast Z79.61
--- OUTSIDE RECORDS SUMMARY | 2025-02-17 15:58 | XMS_ITS | Clinical Summary ---
Author Organization [facility] Address [address] [place] [address] Care Team Providers Care Embedded Systems Designer Name Role Phone Unavailable Primary Care Provider [...]
--- OUTSIDE RECORDS SUMMARY | 2025-02-17 15:58 | XMS_ITS | Patient Health Record ---
Author Organization [facility] Address [address] [place] [address] Care Team Providers Care Printed Circuit Boards Pinner Name Role Phone RaffyJyothi gasca Primary Care Provider Unavail able Jose Alejandro Live Unavailable [phone] Allergies Allergen (clinical drug ingredient) Drug/Non Drug [...] Date Coverage End Date UMR [address] [address] [place] [address] [phone] [id number] Saima Bey Self - patient is the insured Medical (General) History Medical History History ICD Code Knee pain Chicken pox Migraines Headaches chronic sinusitis Unspecified inflammatory spondylopathy, 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
== END 2025-02-17 16:22 | disposition home or self-care (01) ==
LOC: HO.RHES 15:35
PROVIDERS: PCP Nurse Practitioner Family; Visit Provider Student in an Organized Health Care Education/Training Program
DX: L40.50 Arthropathic psoriasis, unspecified (principal); M25.552 Pain in left hip; Z79.61 Long term (current) use of immunomodulator
CPT/HCPCS: 99213

== ENCOUNTER 2025-04-20 15:55 | Outpatient (RCR) | payer OTHER, SELFPAY ==
--- NOTE | 2025-03-13 16:01 | MHC.PT.EP ---
[facility] [place] [facility] [place] [facility] [place] [facility] [address] Alex Ortega [address] [phone] F: [phone] F: [phone] F: [phone] F: [phone] Physical Therapy Plan of Care Date of Evaluation: 03/13/25 Date of Surgery: N/A Diagnosis: tendinopathy of gluteus medius (RL) Assessment: pt is a 44 y/o female presenting to physical therapy w/ referring diagnosis of tendinopathy of gluteus medius. Impairments include pain, decreased range of motion, decreased strength, impaired functional mobility, impaired postural awareness, and altered ambulation mechanics. pt is a good candidate for skilled PT due to age, potential remediation of impairments, typical disease/condition progression and prognosis, comorbidities, and motivation. pt would benefit from skilled PT intervention to provide a tailored strengthening and stretching exercise program, functional training, gait training, postural re-training, neuromuscular re-education, modalities as needed for pain, equipment safety demonstration. Frequency and Duration: The patient will be seen 2x/wk for 4 wks Short Term Goals: pt will be I w/ HEP to promote self-management of condition. pt will improve L hip ABD strength by 1 MMT grade to promote ease in SLS management. Mine Captain Goals: pt will report a statistically significant improvement in self-reported outcome measure, LEFI, to promote return to PLOF. pt will demo proper lifting mechanics w/ object from floor to chest height x5 reps w/o verbal cueing to promote neutral spine w/ functional lifting. Treatment Plan: Modalities to reduce pain, spasms and effusion. Manual therapy to restore motion and function. Therapeutic exercise to improve strength and flexibility. Neuromuscular re-education for posture and balance. Therapeutic activities to return to functional activities of daily living. Electronically signed by: Rika Torres PT, DPT Please sign and return to therapist. Thank you for your referral.
--- NOTE | 2025-05-18 16:19 | MHC.PT.DC ---
[facility] [place] [facility] [place] [facility] [place] [facility] [address] Alex Ortega [address] [facility] [phone] F: [phone] F: [phone] F: [phone] F: [phone] Physical Therapy Discharge Report Diagnosis: tendinopathy of gluteus medius (RL) Date of Surgery: N/A Date of Evaluation: 03/13/25 Date of Discharge: 05/18/25 Treatments to Date: 8 Cancellations to Date: 4 No Shows to Date: 0 Discharge Status: Achieved Goals Improved Function Independent with HEP Discharge Summary: The patient was reporting improvement of hip and back pain. She has achieved all goals established at the initial evaluation. She is independent with her home exercise program and encouraged to continue with this. The patient is discharged from this physical therapy plan of care. Electronically signed by: Rika Torres PT, DPT Please sign and return to therapist. Thank you for your referral.
== END 2025-05-18 16:20 | disposition home or self-care (01) ==
LOC: HO.PT 15:55
PROVIDERS: PCP Nurse Practitioner Family; Visit Provider Student in an Organized Health Care Education/Training Program
DX: M76.02 Gluteal tendinitis, left hip (principal); M67.952 Unspecified disorder of synovium and tendon, left thigh
CPT/HCPCS: 97033; 97110; 97140; 97162; 97530

== ENCOUNTER 2025-06-18 14:36 | Outpatient (AMB) | payer OTHER, SELFPAY ==
[2025-06-18 14:40] VITALS: BP 143/94; PULSE 83; BMI 25.4
--- NOTE | 2025-06-18 14:40 | A.OFFVIS_ITS ---
Vital Signs 06/18/25 14:40 Height 5 ft 7 in Weight 162 lb BMI 25.4 BP 143/94 H Blood Pressure Location Lt brachial Position Sitting Pulse 83 Intake Visit Reasons: follow up Intake Note: Patient presents in office visit today in follow up of GERD and X-rays. CC: Patient reports that she still having the LL pelvic pain. She reports that her stools are always a yellowish orange. Manager Radio Required: No Accompanied by: Self / Same As Patient Allergies Sulfa (Sulfonamide Antibiotics) (SULFA (SULFONAMIDE ANTIBIOTICS)) Allergy (Unknown, Verified 06/18/25 14:59) UNKNOWN, hives HPI HPI follow up: Details: Assessment & Plan (1) LLQ pain: Code(s): R10.32 - Left lower quadrant pain Category: Medical (2) Chronic idiopathic constipation: Code(s): K59.04 - Chronic idiopathic constipation Category: Medical (3) GERD (gastroesophageal reflux disease): Code(s): K21.9 - Gastro-esophageal reflux disease without esophagitis Category: Medical (4) Back pain: Code(s): M54.9 - Dorsalgia, unspecified Category: Medical (5) Arthralgia of left side of pelvis: Code(s): M25.552 - Pain in left hip Category: Medical Plan Her current regimen consists of pantoprazole qam and famotidine, she has not needed to use the fiber. She just started Otezla which seems to help her BM's. She is c/o 3 mos of LLQ pain. It is about 4-7/10 some days worse that others but she can not ID exacerbating factors except slightly if she lays on her left side and better on rt side. I discussed the possible differential diagnosis which is very wide. We will do a trial of dicyclomine will help me to determine if this might be bowel spasm. I also explained that this could be musculoskeletal or even ovarian in origin. ROV next available Orders: Orders US abdomen complete Today M25.552 - Pain in left hip, M54.9 - Dorsalgia, unspecified, R10.32 - Left lower quadrant pain UA CC w/rflx Micro + Cult Today M25.552 - Pain in left hip, M54.9 - Dorsalgia, unspecified, R10.32 - Left lower quadrant pain XR lumbar spine 2-3V Today M25.552 - Pain in left hip, M54.9 - Dorsalgia, unspecified, R10.32 - Left lower quadrant pain XR abdomen w decubitus Today M25.552 - Pain in left hip, M54.9 - Dorsalgia, unspecified, R10.32 - Left lower quadrant pain XR sacroiliac joint 1-2V Today M25.552 - Pain in left hip, M54.9 - Dorsalgia, unspecified, R10.32 - Left lower quadrant pain Medications: New dicyclomine 10 mg PO QID 120 caps 3RF M54.9 - Dorsalgia, unspecified, R10.32 - Left lower quadrant pain Refilled pantoprazole 40 mg PO DAILY 90 tabs 1RF K21.9 - Gastro-esophageal reflux disease without esophagitis, K59.04 - Chronic idiopathic constipation famotidine 40 mg PO BEDTIME 90 tabs 2RF K21.9 - Gastro-esophageal reflux disease without esophagitis, K59.04 - Chronic idiopathic constipation ENTERED: 11/14/24-[address]: 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 Watson 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- ORDERED: [facility] w Micros QUERIES: Source: Urine, Clean Catch Test Result Flag Reference Ur Color Yellow Ur Appear Clear PH 5.5 5.0-9.0 Ur Glu Negative Negative mg/dL Urine Blood Negative Negative Spec [place] Ur 1.025 1.005-1.025 Urine Protein Negative Neg-Trace mg/dL Urine Ketones 15 Negative mg/dL Ur Nitrite Negative Negative Ur Sera Esterase Trace H Negative Ur RBC 0-2 0-2 /HPF Ur WBC 6-10 H 0-5 /HPF Ur Squam Epi 3-5 0-2 /HPF Ur Bact Trace None Seen Ur Hyaline 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 The vertebral heights, alignment and disc heights are maintained. There is tiny ventral spurring inferior endplates of L1 and T12 vertebra. No lytic or sclerotic process seen. The paravertebral soft tissues are normal. XR/XR lumbar spine 2-3V IMPRESSION: Mild ventral spurring inferior endplate of L1 and T12 vertebra. No lytic or sclerotic process seen. X-RAY OF THE SI JOINT FINDINGS: A small 1.4 cm sclerotic density in the left iliac bone likely a small bone island, best visualized on the left oblique view. Otherwise bones and soft tissues are normal. Acute fracture or lytic process. Alignment is anatomic. Incidental finding of spina bifida occulta S1 vertebra. Sacroiliac joint spaces are well-maintained without erosions or surrounding sclerosis. There is incidental finding of an IUD in pelvis. XR/XR sacroiliac joint 1-2V IMPRESSION: Unremarkable SI joints. MRI OF THE ABDOMEN 12/2024 Addendum: Prominent pericervical vascularity could indicate underlying pelvic congestion syndrome. 18 mm low signal lesion in the myometrium of the right posterior left uterine body is consistent with an intramural leiomyoma. Bilateral ovarian follicles are visible. Dominant follicle in the left measures 14 x 23 mm. FINDINGS: Labrum: No definite labral tear is identified on this nonarthrogram study. Articular Cartilage/Joint fluid: There is a physiologic foramen joint fluid. Hip joint articular cartilage appears intact. Ligament/Muscle/Tendon: Ligament of teres is intact. There is increased signal on fluid sensitive sequences in the soft tissues adjacent to the distal gluteus medius tendon and to a lesser extent the distal gluteus minimus tendon and deep to IT band. Neurovascular: Major neurovascular structures are unremarkable. Deep and superficial soft tissues: There is no intrapelvic mass or ascites. Visualized bowel is grossly unremarkable. Subcutaneous soft tissues are within normal limits. There is no adenopathy. Bones/Marrow: Bone marrow signal is physiologic. SI joints are symmetrical without erosions, or ankylosis. Pubic symphysis joint is unremarkable. MR/MR hip LT wo con IMPRESSION: There is evidence of tendinopathy versus partial tear of the distal left gluteus medias greater than gluteus minimus tendons. TODAY'S VISIT [facility] Medical History Physical exam Immunization counseling Abnormal finding on CT scan Acute diarrhea Epigastric pain determined by examination Pre-op examination Pseudotumor cerebri Monoclonal gammopathies Surgical History History of esophagogastroduodenoscopy (EGD) Hx of dilation and curettage Altha teeth removed Family History Mother Metabolic disease Diabetes Breast cancer Hypertension High cholesterol Psoriasis Father Hypertension High cholesterol Maternal Grandmother Pancreatic cancer Maternal Grandfather Heart disease Paternal Grandfather Alzheimer disease Paternal Grandfather Dementia Social History Household Members: Spouse and Children Housing: House Are you a primary plant health care technician to a significant other at home: No Do you presently have visiting nurse or other home services: No Alcohol intake: current Alcohol intake frequency: a few times a month Alcohol type: wine Patient Tobacco Use Status: Never used Tobacco e-Cigarette/Vaping Use: Never Used service: No Current occupational status: employed Cognitive needs: No Hearing needs: No Vision needs: No Physical Exam Vital Signs: Last Vital Signs Pulse 83 06/18/25 14:40 BP 143/94 H 06/18/25 14:40 BMI result Body Mass Index 25.4 Assessment & Plan Assessment & Plan (1) IBS (irritable bowel syndrome): Code(s): K58.9 - Irritable bowel syndrome, unspecified Category: Medical (2) LLQ pain: Code(s): R10.32 - Left lower quadrant pain Category: Medical Plan Subjective Patient presents for ongoing left lower quadrant abdominal discomfort described as anterior rather than back pain, persistent over months. Reports stools are consistently yellow-orange for months regardless of being formed or soft. Bowel pattern alternates between a few days of constipation followed by softer (not frankly diarrheal) stools; no predominant diarrhea. Notes seeing whole blueberries in stool at times. Denies upper abdominal pain. Previously completed physical therapy for gluteal tendinopathy. Prior trial of dicyclomine 10 mg then 20 mg provided no benefit. Currently taking famotidine and pantoprazole. States gallbladder intact. History of transient liver enzyme elevation while on low-dose chemotherapy for autoimmune disease, resolved after discontinuation. Objective - MRI: SI joints and lumbar spine largely unremarkable aside from mild arthritis; incidental spina bifida occulta at S1. Possible pelvic congestion noted. Colon appeared normal within limits of imaging. Uterine leiomyoma present. Gluteal tendinopathy noted on the left. - Prior CT (2021): No significant findings relevant to current symptoms per review. Assessment & Plan Left lower quadrant abdominal discomfort with persistent yellow-orange stools: Clinical picture suggests bile-predominant stool color likely related to rapid transit and/or gut microbiota imbalance; functional etiology considered given lack of structural abnormalities on imaging. Prior antispasmodic (dicyclomine) ineffective. Avoid bile-binding agents due to constipation tendency. - Start antibiotic course: Augmentin for 14 days to reduce unhelpful gut bacteria. - Begin probiotic: [id number] [employer] (contains lactobacillus and bifidobacteria) daily during antibiotics and continue for a minimum of 30 days thereafter; may continue longer as tolerated. - Education: Yellow-orange stool color consistent with bile; absence of features suggesting biliary obstruction (which would produce kade-colored stools). Monitor symptoms. - Follow-up: Return in approximately 8 weeks, sooner for severe pain or any worsening symptoms. Medications: New amoxicillin-pot clavulanate 875-125 mg 1 tab PO BID 28 tabs 0RF 14 days K58.9 - Irritable bowel syndrome, unspecified, R10.32 - Left lower quadrant pain Coding Level of Care Code Est Pt Level 3 (62218) Diagnoses IBS (irritable bowel syndrome) K58.9 LLQ pain R10.32
== END 2025-06-18 15:35 | disposition home or self-care (01) ==
PROVIDERS: PCP Nurse Practitioner Family; Visit Provider Nurse Practitioner
DX: K58.9 Irritable bowel syndrome, unspecified (principal); R10.32 Left lower quadrant pain
CPT/HCPCS: 99213